=== PATIENT | female | born 1945 | race Caucasian/White ===

== ENCOUNTER 2019-03-01 00:12 | Outpatient (CLI) | payer MEDICARE, SELFPAY ==
--- NOTE | 2019-03-01 14:32 | DI.MAMMO_ITS ---
SYMPTOMS/DIAGNOSIS: SCREENING, Z12.31 MAMMOGRAMS: Mammograms were interpreted according to the usual protocol including computer analysis with CAD system, tomosynthesis and C view imaging. The breast tissue is heterogeneously radiodense, which lowers the sensitivity of the study. There is no dominant mass. There are no suspicious calcifications and there has been no significant interval change when compared with prior images. SUMMARY: No evidence of malignancy, category 1. Yearly screening mammography is recommended. Breast density category C. MQSA ASSESSMENT OF FINDINGS: Negative. Category 1. Patient will receive a letter notifying them of these results. Bi-RADS category C. The breasts are heterogeneously dense, which may obscure small masses.
--- NOTE | 2019-03-01 14:55 | DI.RAD_ITS ---
SYMPTOMS/DIAGNOSIS: MENOPAUSAL, SCREENING FOR OSTEOPOROSIS IN A POSTMENOPAUSAL WOMAN, Z78.0 DEXA SCAN: DEXA scan was performed according to the usual protocol. Findings for left hip scanning are a T score of -2.5 with left femoral neck T score of -2.5. Lumbar spine scanning shows a T score of -1.9. Forearm scanning shows a T score of -2.2. CONCLUSION: Findings consistent with osteoporosis according to the WHO criteria. Please note that the lateral vertebral scanogram shows no evidence of a vertebral compression fracture.
== END 2019-03-01 00:32 ==
PROVIDERS: PCP Family Medicine; Visit Provider Family Medicine
DX: M81.0 Age-related osteoporosis without current pathological fracture (principal); Z78.0 Asymptomatic menopausal state; Z12.31 Encounter for screening mammogram for malignant neoplasm of breast
CPT/HCPCS: 77063; 77067; 77080

== ENCOUNTER 2019-03-08 13:19 | Outpatient (REF) | payer MEDICARE, SELFPAY ==
[2019-03-08 14:37] LABS: ALT 24 U/L (12-78); AST 20 U/L (15-37); Albumin 3.6 g/dL (3.4-5.0); Alkaline Phosphatase 89 U/L (46-116); Anion Gap 8.8 mmol/L (3-11); BUN 15 mg/dL (7-18); Bilirubin, Total 0.5 mg/dL (0.2-1.0); CO2 27.2 mmol/L (21.0-32.0); CREATININE 1.23 mg/dL (0.55-1.02); Calcium 8.9 mg/dL (8.5-10.1); Chloride 100 mmol/L (98-107); Cholesterol 236 mg/dL (50-200); Glucose 94 mg/dL (70-100); HDL Cholesterol 68 mg/dL (40-60); LDL CHOLESTEROL 140 mg/dL (<100); Potassium 3.6 mmol/L (3.5-5.1); Sodium 136 mmol/L (136-145); T4 8.1 ug/dL (4.5-12.5); TSH 1.19 uIU/mL (0.358-3.74); Total Protein 7.6 g/dL (6.4-8.2); Triglyceride 68 mg/dL (30-150)
[2019-03-08 14:54] LABS: HCT 41.4 % (36.0-46.0); HGB 14.3 g/dL (12.0-15.5); Mean Corp. HGB Concentration 34.5 g/dL (32.0-36.0); Mean Corpuscular Hemoglobin 31.3 pg (27.0-33.0); Mean Corpuscular Volume 90.6 fL (80-95); Mean Platelet Volume 10.3 fL (8.0-11.0); Platelet Count 252 x1000/uL (130-400); RBC 4.57 m/cumm (4.00-5.20); RBC Distribution Width 12.5 % (11.7-14.6); White Blood Cell Count 6.87 k/cumm (4.4-10.8)
== END 2019-03-08 13:39 ==
LOC: NCHCN 13:19
PROVIDERS: PCP Family Medicine; Visit Provider Family Medicine
DX: I10 Essential (primary) hypertension (principal)
CPT/HCPCS: 80053; 80061; 83721; 85027; 84436; 84443

== ENCOUNTER 2020-03-21 17:22 | Outpatient (REF) | payer MEDICARE, SELFPAY | END 2020-03-21 17:42 | LOC: NCHCN 17:22 | PROVIDERS: PCP Family Medicine; Visit Provider Family Medicine | DX: R10.32 Left lower quadrant pain (principal) | CPT/HCPCS: 87086 ==

== ENCOUNTER 2020-07-24 09:28 | Outpatient (REF) | payer MEDICARE, SELFPAY ==
[2020-07-24 20:48] LABS: HCT 38.3 % (36.0-46.0); HGB 12.6 g/dL (11.2-15.7); MCH 30.3 pg (27.0-33.0); MCHC 32.9 % (32.0-36.0); MCV 92.1 fL (80-95); Platelet Count 293 10^3/uL (130-400); RBC 4.16 10^6/uL (3.93-5.22); RDW 11.9 % (11.7-14.6); RDW-SD 39.9 fL; WBC 7.41 10^3/uL (4.4-10.8)
[2020-07-24 21:07] LABS: ALT 17 U/L (14-59); AST 17 U/L (15-37); Albumin 3.5 g/dL (3.4-5.0); Alkaline Phosphatase 88 U/L (46-116); Anion Gap 5.7 mmol/L (3-11); BUN 25 mg/dL (7-18); Bilirubin, Total 0.3 mg/dL (0.2-1.0); CO2 27.3 mmol/L (21.0-32.0); CREATININE 1.46 mg/dL (0.55-1.02); Calcium 9.4 mg/dL (8.5-10.1); Calculated LDL 148 mg/dL (<100); Chloride 105 mmol/L (98-107); Cholesterol 238 mg/dL (<200); Estimated GFR 35.02 (mL/min/1.73m2); Glucose 118 mg/dL (74-106); HDL Cholesterol 79 mg/dL (40-60); Potassium 4.1 mmol/L (3.5-5.1); Sodium 138 mmol/L (136-145); Total Protein 7.5 g/dL (6.4-8.2); Triglyceride 57 mg/dL (<150)
== END 2020-07-24 09:48 ==
LOC: NCHCN 09:28
PROVIDERS: PCP Family Medicine; Visit Provider Family Medicine
DX: I10 Essential (primary) hypertension (principal)
CPT/HCPCS: 80053; 80061; 85027

== ENCOUNTER 2021-08-10 15:32 | Outpatient (REF) | payer MEDICARE, SELFPAY ==
[2021-08-10 15:02] LABS: Abs Immature Grans 0.02 10^3/uL (0.0-0.06); Absolute Basophil Count 0.09 10^3/uL (0.0-0.2); Absolute Eosinophil Count 0.18 10^3/uL (0.0-0.7); Absolute Lymphocyte Count 2.11 10^3/uL (1.2-3.4); Absolute Monocyte Count 0.75 10^3/uL (0.1-0.8); Absolute Neutrophil Count 4.43 10^3/uL (1.2-6.7); Basophils % 1.2; Eosinophils % 2.4; HCT 37.5 % (36.0-46.0); HGB 12.8 g/dL (11.2-15.7); Immature Grans % 0.3; Lymphocytes % 27.8; MCH 30.5 pg (27.0-33.0); MCHC 34.1 % (32.0-36.0); MCV 89.3 fL (80-95); MPV 9.6 fL (8.0-11.0); Monocytes % 9.9; Neutrophils % 58.4; Nucleated RBC 0 %; Platelet Count 402 10^3/uL (130-400); RDW-SD 39.2 fL; WBC 7.58 10^3/uL (4.4-10.8)
[2021-08-10 15:50] LABS: ALT 18 U/L (14-59); AST 18 U/L (15-37); Albumin 3.6 g/dL (3.4-5.0); Alkaline Phosphatase 108 U/L (46-116); Anion Gap 5.6 mmol/L (3-11); BUN 17 mg/dL (7-18); Bilirubin, Total 0.5 mg/dL (0.2-1.0); CO2 26.4 mmol/L (21.0-32.0); CREATININE 1.4 mg/dL (0.55-1.02); Calcium 9.4 mg/dL (8.5-10.1); Chloride 98 mmol/L (98-107); Estimated GFR 36.66 (mL/min/1.73m2); Folate 5.7 ng/mL (8.6-20.0); Glucose 90 mg/dL (74-106); Potassium 4.5 mmol/L (3.5-5.1); Sodium 130 mmol/L (136-145); TSH (W/Ref FT4) 0.86 uIU/mL (0.36-3.74); Total Protein 7.9 g/dL (6.4-8.2); Vitamin B12 402 pg/mL (193-986)
== END 2021-08-10 15:33 | disposition home or self-care (01) ==
LOC: NCHCN 15:32
PROVIDERS: PCP Family Medicine; Visit Provider Family Medicine
DX: I10 Essential (primary) hypertension (principal); M81.0 Age-related osteoporosis without current pathological fracture; Z00.00 Encounter for general adult medical examination without abnormal findings; R41.3 Other amnesia
CPT/HCPCS: 80053; 82607; 82746; 84443; 85025

== ENCOUNTER 2022-03-24 09:27 | Emergency (ER) | payer MEDICARE, SELFPAY ==
[2022-03-24 09:31] VITALS: BP 116/68; PULSE 79; RESP 16; TEMP 36.4; O2SAT 99
--- NOTE | 2022-03-24 09:53 | ED.GENADUL_ITS ---
Discharge Plan Disposition Patient Disposition: HOME Condition: Stable Discharge Details Clinical Impression: Complaints of leg weakness Primary Care Provider: Sinan Varma ED Provider: Dave Jaimes Home Meds and New Rx's Prescriptions: Continued amlodipine 10 mg tablet 10 mg PO DAILY 0RF Label Comments: TAKE ONE TABLET BY MOUTH EVERY DAY Multi For Her 18 mg iron-600 mcg-40 mcg Capsule 1 tab-cap PO DAILY 0RF No Action cyclobenzaprine 10 mg tablet 10 mg PO TID [id number] Label Comments: TAKE ONE TABLET BY MOUTH THREE TIMES A DAY Discharge Instructions Additional Instructions: Your exam today was normal, there were no concerning abnormalities Follow up with your primary care provider within 1-2 weeks If you feel more ill, have severe pain or weakness on one side of the body return to the emergency department Medical Decision Making 76 yo female with hx of htn comes in with complaints of intermittent sensation that her legs give out or get shaky for a few years. She has seen PT in the past but then stopped seeing them. She states today she was walking and had 5 minutes where her legs felt weak and shaky. Did not fall or hti her head, no loc. Denies any symptoms now and has no vision changes or speech changes. She arrives with stable gait, 5/5 strength in all muscles in her leg, normal sensation and pulses. No calf tenderness or leg swelling. She has no saddle anesthesia, no back tenderness. Denies any fevers, chills, chest pain, dyspnea, abdomen pain. No headaches. She is caox4 with clear speech, CN II-XII. Her symptoms seem more chronic and I suspect are from aging and deconditioninng, less likely myopathy or neuropathy. She has no findings one exam or history to suggest spinal cord impringement, cva/tia, or entities such as guillain-nazario? syndrome. Discussed with pt and she is comfortable with no testing in the ED at this time. I did recommend she resume PT and also see pcp and use either a cane or walker, return precautions given Differential Diagnosis Differential Diagnosis: myopathy, muscle weakness, neuropathy HPI General Mode of arrival: ambulatory . Date/Time Provider Initiated Documentation: 03/24/22 09:28 . Limitations to Documentation: no limitations . History of Present Illness 76 year old F presents to the emergency department with the chief complaint of legs shaky at home, Patient started experiencing this hour(s) (1) and it has been now resolved. improves with No relieving factors improve symptom(s), No exacerbating factors reported . Patient notes no other symptoms.; denies confusion, chest pain, diaphoresis and fever/chills. Patient did receive the following treatments prior to arrival, none Related Data Home Medications Medication Instructions Recorded Confirmed amlodipine 10 mg tablet 10 mg PO DAILY 03/24/22 03/24/22 cyclobenzaprine 10 mg tablet 10 mg PO TID PRN 03/24/22 03/24/22 [id number] fumarate 18 1 tab-cap PO DAILY 03/24/22 03/24/22 mg-FA 600 mcg-vit K 40 mcg capsule (Multi For Her) Allergies Allergy/AdvReac Type Severity Reaction Status Date / Time cefuroxime [From Ceftin] Allergy Unverified 03/24/22 09:38 Penicillins Allergy Unverified 03/24/22 09:38 General Stated Complaint: Orthopedic MARCUS: 4 Review of Systems All systems reviewed & are unremarkable except as noted in HPI and below Constitutional Constitutional: Denies chills and Denies fever(s) Cardiovascular Cardiovascular: Denies chest pain and Denies dyspnea Respiratory Respiratory: Denies cough and Denies dyspnea Gastrointestinal Gastrointestinal: Denies abdominal pain, Denies nausea and Denies vomiting Genitourinary Genitourinary: Denies dysuria Musculoskeletal Musculoskeletal: Denies joint swelling Integumentary/Breasts Skin/Breast: Denies rash PFSH All Active Problems (Updated 03/24/22 @ 09:54 by Dave Jaimes MD) Complaints of leg weakness (Acute) Social History Smoking/Tobacco Use Status: Never Smoking risk assessment performed?: Yes Alcohol Intake: current Alcohol Intake frequency: 3 or more drinks per day Alcohol type: beer Drug use: Never Substance use type: does not use Do you feel safe at home: Yes Do you feel safe in your relationship?: Yes Exam Const General: no acute distress Orientation: alert HENMT Head: normal to inspection Ears: external ears normal General nose exam: external nose normal Mouth: moist mucous membranes Eyes General: appearance normal, both eyes and all related structures Neck Neck: normal visual inspection Resp Effort & Inspection: normal respiratory effort and able to speak in complete sentences Cardio Rate: regular rate Back/Spine/Pelvis Back: no CVA tenderness Skin General skin exam: no rashes or lesions noted Neuro General: patient alert and patient oriented x3 Extrem General: normal to inspection Psych Mental Status: mental status grossly normal Course Vital Signs Vital signs: Vital Signs Temperature 36.4 C L 03/24/22 09:31 Pulse 79 03/24/22 09:31 Respiratory Rate 16 03/24/22 09:31 Blood Pressure 116/68 03/24/22 09:31 Pulse Oximetry 99 03/24/22 09:31 Temperature 36.4 C L 03/24/22 09:31 Temperature Source Temporal Artery Scan 03/24/22 09:31 Pulse 79 03/24/22 09:31 Respiratory Rate 16 03/24/22 09:31 Respiratory Effort Non-Labored 03/24/22 09:36 Blood Pressure 116/68 03/24/22 09:31 Blood Pressure Position Sitting 03/24/22 09:31 Pulse Oximetry 99 03/24/22 09:31 Oxygen Delivery Method Room Air 03/24/22 09:31 Oxygen Flow Rate 0 03/24/22 09:31 Pain Level 0 03/24/22 09:31
== END 2022-03-24 10:02 | disposition home or self-care (01) ==
PROVIDERS: Emergency Provider Emergency Medicine; PCP Physician Assistant
DX: R53.1 Weakness (principal)
CPT/HCPCS: 99281; 99282

== ENCOUNTER 2022-03-30 18:31 | Outpatient (REF) | payer MEDICARE, SELFPAY ==
[2022-03-30 19:45] LABS: HCT 33.4 % (36.0-46.0); HGB 11.2 g/dL (11.2-15.7); MCHC 33.5 % (32.0-36.0); MCV 87 fL (80-95); Platelet Count 523 10^3/uL (130-400); RBC 3.86 10^6/uL (3.93-5.22); RDW 12.1 % (11.7-14.6); RDW-SD 38.7 fL; WBC 12.28 10^3/uL (4.4-10.8)
[2022-03-30 19:46] LABS: ESR 21 mm/hr (0-30)
[2022-03-30 19:50] LABS: Anion Gap 11.5 mmol/L (3-11); BUN 28 mg/dL (7-18); C-Reactive Protein 5.08 mg/dL (0.0-0.3); CO2 22.5 mmol/L (21.0-32.0); CREATININE 1.7 mg/dL (0.55-1.02); Calcium 9.3 mg/dL (8.5-10.1); Chloride 96 mmol/L (98-107); Estimated GFR 29.22 (mL/min/1.73m2); Glucose 136 mg/dL (74-106); Potassium 3.2 mmol/L (3.5-5.1); Sodium 130 mmol/L (136-145)
== END 2022-03-30 18:32 | disposition home or self-care (01) ==
LOC: NCHCN 18:31
PROVIDERS: PCP Physician Assistant; Visit Provider Physician Assistant
DX: M54.9 Dorsalgia, unspecified (principal); I10 Essential (primary) hypertension
CPT/HCPCS: 80048; 85027; 85652; 86140

== ENCOUNTER → 2022-03-30 18:44 | Outpatient (CLI) | payer MEDICARE, SELFPAY ==
--- NOTE | 2022-03-30 15:56 | DI.RAD_ITS ---
Exam(s) XR THORACIC SPINE COMPLETE EXAM: XR THORACIC SPINE COMPLETE CLINICAL HISTORY: THORACIC BACK PAIN M54.9. TECHNIQUE: 2D digital imaging was performed. COMPARISON: No exams were available for comparison FINDINGS: 3 views There is a mild thoracic scoliosis convex right. There is no evidence of fracture or listhesis. No prominent disc space narrowing. No abnormal widen ing of the paraspinal lines. No osseous lesions. IMPRESSION: DATA REPOSITORY: RADIATION DOSE DELIVERED:
== END ==
PROVIDERS: PCP Physician Assistant; Visit Provider Physician Assistant
DX: M54.6 Pain in thoracic spine (principal); M41.84 Other forms of scoliosis, thoracic region
CPT/HCPCS: 72072

== ENCOUNTER 2022-03-31 10:40 | Outpatient (REF) | payer MEDICARE, SELFPAY ==
[2022-03-31 15:24] LABS: Bilirubin Negative (Negative); Blood Trace-intact (Negative); Clarity Sl Cloudy (Clear); Glucose Negative (Negative); Ketones Negative (Negative); Leukocyte Esterase Large (Negative); Nitrite Negative (Negative); Specific Gravity 1.015 (1.005-1.025); Urobilinogen 0.2 EU/dL (Up TO 0.2)
[2022-03-31 15:38] LABS: Bacteria Many HPF (Negative); C & S Indicated? No/Sq. Contamination; Casts Negative LPF (Negative); Crystals Negative HPF (Negative); Epithelial Cells Moderate HPF (Negative); Mucus Negative (Negative); RBC >50 HPF (0-2); WBC >50 HPF (0-5)
== END 2022-03-31 10:41 | disposition home or self-care (01) ==
LOC: NCHCN 10:40
PROVIDERS: PCP Physician Assistant; Visit Provider Physician Assistant
DX: R10.9 Unspecified abdominal pain (principal)
CPT/HCPCS: 81003; 81015

== ENCOUNTER 2022-04-01 13:16 | Emergency (ER) | payer MEDICARE, SELFPAY ==
--- NOTE | 2022-04-01 13:04 | ED.GENADUL_ITS ---
Discharge Plan Disposition Patient Disposition: HOME Condition: Stable Discharge Details Clinical Impression: Lumbar compression fracture Primary Care Provider: Sinan Varma ED Provider: Shaneka Crooks Home Meds and New Rx's Prescriptions: Continued sulfamethoxazole-trimethoprim [Bactrim DS] 800-160 mg tablet 1 tab PO BID Label Comments: Take 1 tablet by mouth twice a day tramadol 50 mg tablet 50 tab PO Label Comments: TAKE 1 TABLET BY MOUTH THREE TIMES A DAY NEEDED FOR PAIN cyclobenzaprine 10 mg tablet 10 mg PO TID PRN Label Comments: TAKE ONE TABLET BY MOUTH THREE TIMES A DAY amlodipine 10 mg tablet 10 mg PO DAILY Label Comments: TAKE ONE TABLET BY MOUTH EVERY DAY Multi For Her 18 mg iron-600 mcg-40 mcg Capsule 1 tab-cap PO DAILY Discharge Instructions Instructions: Vertebral Compression Fracture (ED) Additional Instructions: Your your imaging today showed evidence of lumbar spine #1 vertebral body compression fracture. This is best treated with rest and pain control. Alternate tylenol and motrin as needed and directed for pain. Take your tramadol that you have at home as needed and directed for pain not relieved with Tylenol or Motrin. Call your primary care doctor's office tomorrow to schedule a follow-up appointment for reevaluation within the next week and for referral to [facility] spine if needed for further evaluation or management. Return immediately to the emergency department if you develop any worsening or new concerning symptoms. Discharge Data Discharge Date/Time-TO BE ENTERED AT DEPARTURE: 04/01/22 15:52 Discharge Physician: Shaneka Crooks Medical Decision Making 76-year-old female with a history of chronic low back pain and bilateral leg weakness presents for lower back pain since this morning after tripping over her dog bed landing on her lower back. No cauda equina symptoms. Vitals within normal limits. Patient appears slightly uncomfortable but nontoxic. Her abdomen is soft and nontender. She has midline and right paraspinal lumbar spine tenderness. She has pain in her right hip with range of motion. No orthopedic deformities noted. Neurovascular intact. She did endorse removing a tick from her umbilicus this morning. This area had erythematous papules but no evidence of bull's-eye rash. She declined to doxycycline and Tick and Lyme panel. Differential diagnosis includes lumbar spine compression fracture, contusion, hip fracture. We obtain lumbar spine and right hip and pelvis xrays and give a dose of tramadol and valium PO and toradol IM and reassess. Imaging reviewed and note a mild L1 vertebral body compression fracture. Patient reassessed and her pain is improved. She was able to get up and ambulate. Case reviewed with Dr. Poole who recommends rest, pain control and walker if needed. She was given a walker for home to use for assistance with ambulation when needed. She has tramadol at home to use as needed for pain. Advised follow-up with primary care doctor for reevaluation and for referral to [facility] spine if needed Medical Records Medical records reviewed: Yes I reviewed the patient's medical records. Imaging Data Radiologic Study: Radiologist's impression: XR LUMBAR SPINE COMPLETE CLINICAL HISTORY: ? fall onto back, r/o acute fracture.? TECHNIQUE:? 2D digital imaging was performed of the lumbar spine.? Five images were obtained.? AP, lateral, right oblique, left oblique and L5-S1 spot views were obtained. COMPARISON:? DX XR DEXA BONE DENSITY W/WO HENRIQUE from 03/01/2019 CR XR THORACIC SPINE COMPLETE from 03/30/2022 FINDINGS: BONES: There is a mild compression fracture of the superior aspect of L1.? Mild loss of the height of the vertebral bodies seen anteriorly.? Endplate osteophytes are seen throughout the lumbar spine.? Degenerative changes of the facets at L4-5 and L5-S1 is present.? DISKS: There is disc space narrowing at L4-L5 and L5-S1. ALIGNMENT: Lumbar spinal alignment is within normal limits. No spondylolysis or spondylolisthesis. SOFT TISSUE: Normal. IMPRESSION: Findings of an acute mild fracture of the L1 vertebral body.? XR HIP RT COMPLETE ? AP PELVIS CLINICAL HISTORY: ? s/p fall, r/o fracture.? TECHNIQUE:? 2D digital imaging was performed of the right hip. Two images were obtained.? AP pelvis and lateral right hip? views were obtained. COMPARISON:? No exams were available for comparison FINDINGS: BONES: No acute fracture is present. No bony destructive lesion is seen. There is deformity of the inferior left pubic ramus which may represent an old healed fracture. JOINTS: No dislocation present. Mild degenerative changes of the right hip. SOFT TISSUE: Normal. IMPRESSION: No definite acute fracture or dislocation.? HPI General Mode of arrival: EMS . Date/Time Provider Initiated Documentation: 04/01/22 13:18 . Limitations to Documentation: no limitations . Information obtained by: patient . HPI Narrative: Patient is a 76-year-old female with a history of hypertension who presents from home for back pain status post fall. Patient states she was walking when she tripped over a dog bed and fell onto the hard floor onto her lower back. She states she has been able to ambulate since her fall. She states the pain is mostly in her mid and right lower back. She denies any leg pain, bowel or bladder incontinence, saddle anesthesia. Records note that patient was seen here 1 week ago for bilateral leg weakness with a reassuring exam and was discharged home without lab work or imaging. She states she has had ongoing bilateral leg weakness for several months but states her legs did not feel significantly weak today while she was walking and that she and this was the cause of her fall. Patient also states that she has had ongoing back pain recently for which she saw her PCP who prescribed her tramadol which she has not taken today and referred her for outpatient lab work and urinalysis which appeared contaminated. Patient admits to nausea in route and was given a dose of Zofran per EMS and then vomited. She denies any nausea at present. She does also state that she noticed a tick in her bellybutton this morning which she removed intact. She states she does not think it was engorged and states it was present under 36 hours. She is declining Tick and Lyme panel and declines any treatment for Lyme disease at this time. Related Data Home Medications Medication Instructions Recorded Confirmed amlodipine 10 mg tablet 10 mg PO DAILY 03/24/22 04/01/22 cyclobenzaprine 10 mg tablet 10 mg PO TID PRN 03/24/22 04/01/22 mssgmfarx-nuq-zvww fumarate 18 1 tab-cap PO DAILY 03/24/22 04/01/22 mg-FA 600 mcg-vit K 40 mcg capsule (Multi For Her) sulfamethoxazole 800 1 tab PO BID 04/01/22 04/01/22 mg-trimethoprim 160 mg tablet (Bactrim DS) tramadol 50 mg tablet 50 tab PO 04/01/22 Allergies Allergy/AdvReac Type Severity Reaction Status Date / Time cefuroxime [From Ceftin] Allergy Unverified 04/01/22 13:24 Penicillins Allergy Unverified 04/01/22 13:24 General Stated Complaint: Nk/Back Pain MARCUS: 4 Review of Systems All systems reviewed & are unremarkable except as noted in HPI and below Constitutional Constitutional: Denies chills, Denies excessive sweating, Denies fatigue, Denies fever(s), Denies weakness and Denies weight loss Eyes Eyes: Reports system reviewed and no additional complaints, except as documented and Denies blurry vision ENT Ears, Nose, Mouth, and Throat: Denies vertigo, Denies dizziness, Denies otalgia, Denies nasal congestion, Denies sore throat and Denies throat swelling Cardiovascular Cardiovascular: Denies chest pain, Denies syncope, Denies rapid heart rate and Denies dyspnea Respiratory Respiratory: Denies chest congestion, Denies cough, Denies pain on inspiration and Denies dyspnea Gastrointestinal Gastrointestinal: Denies abdominal pain, Denies diarrhea and Denies vomiting Genitourinary Genitourinary: Denies hematuria, Denies dysuria and Denies flank pain Musculoskeletal Musculoskeletal: Reports back pain and Denies joint swelling Integumentary/Breasts Skin/Breast: Denies lesions and Denies rash Neurologic Neurologic: Denies behavioral changes, Denies confusion, Denies vertigo, Denies dizziness, Denies syncope, Denies localized weakness and Denies weakness Psychiatric Psychiatric: Denies behavioral changes, Denies confusion and Denies depression Endocrine Endocrine: Denies excessive sweating and Denies fatigue Hematologic/Lymphatic Hematologic/Lymphatic: Denies easy bruising and Denies lymphadenopathy Allergic/Immunologic Allergic/Immunologic: Denies throat swelling PFSH All Active Problems (Updated 04/01/22 @ 15:18 by Shaneka Crooks DO) Lumbar compression fracture (Acute) Complaints of leg weakness (Acute) Medical History (Updated 04/01/22 @ 15:18 by Shaneka Crooks DO) HTN (hypertension) Surgical History (Updated 04/01/22 @ 13:55 by Shaneka Crooks DO) H/O section Social History Smoking/Tobacco Use Status: Never Smoking risk assessment performed?: Yes Alcohol Intake: current Alcohol Intake frequency: 3 or more drinks per day Alcohol type: beer Drug use: Never Substance use type: does not use Do you feel safe at home: Yes Do you feel safe in your relationship?: Yes Exam Const General: cooperative and healthy appearing Orientation: alert, awake and oriented x3 HENMT Head: normal to inspection Ears: hearing grossly normal bilaterally, external ears normal and TM's normal bilaterally General nose exam: external nose normal Face and sinus: normal facial exam Mouth: oral mucosae normal Teeth and gingiva: dentition normal Throat: posterior oropharynx normal Eyes General: appearance normal, both eyes and all related structures Eyelids: eyelids normal Pupils: PERRL EOM: EOM intact bilaterally Neck Neck: normal visual inspection Lymphatic: no lymphadenopathy noted Chest Chest: normal inspection of the chest Resp Effort & Inspection: normal respiratory effort and able to speak in complete sentences Auscultation: clear to auscultation bilaterally Cardio Rate: regular rate Rhythm: regular rhythm GI Inspection: normal to inspection Palpation: soft, not firm, no guarding, no hepatosplenomegaly, no masses and nontender Auscultation: normal bowel sounds Back/Spine/Pelvis Back: no CVA tenderness Thoracic/Lumbar Spine: thoracic and lumbar spine normal to inspection, paraspinal tenderness (Right lumbar), No thoracic spinal tenderness and lumbar spinal tenderness Pelvis: no pain with anterior-posterior compression Skin General skin exam: no rashes or lesions noted Neuro General: patient alert and patient awake Cognition: normal cognition Speech: speech normal Gait: normal gait Motor: muscle tone normal throughout Sensory Exam: no sensory deficits noted DTR's: Rt Patellar: 0, Lt Patellar: 0, Rt Ankle: 0 and Lt Ankle: 0 Plantar Reflexes: Equivocal: bilateral (negative babinski b/l ) Extrem General: normal to inspection, full ROM and capillary refill normal Other: Pain in right hip with range of motion but no external rotation or shortening of her extremities. No pain with range of motion to the remainder of her upper and lower extremities. No evidence for lower extremity deformity, edema, erythema or ecchymosis. Bilateral distal pulses intact. Psych Appearance: grossly normal Mental Status: mental status grossly normal Speech and Movement: speech and movement normal Affect: normal affect Thought Process: normal
[2022-04-01 13:17] VITALS: BP 123/71; PULSE 77; RESP 16; TEMP 36.4; O2SAT 98
--- NOTE | 2022-04-01 13:45 | DI.RAD_ITS ---
Exam(s) XR LUMBAR SPINE COMPLETE EXAM: XR LUMBAR SPINE COMPLETE CLINICAL HISTORY: fall onto back, r/o acute fracture. TECHNIQUE: 2D digital imaging was performed of the lumbar spine. Five images were obtained. AP, la teral, right oblique, left oblique and L5-S1 spot views were obtained. COMPARISON: DX XR DEXA BONE DENSITY W/WO HENRIQUE from 03/01/2019 CR XR THORACIC SPINE COMPLETE from 03/30/2022 FINDINGS: BONES: There is a mild compression fracture of the superior aspect of L1. Mild loss of the height of the vertebral bodies seen anteriorly. Endplate osteophytes are seen throughout the lumbar spine. D egenerative changes of the facets at L4-5 and L5-S1 is present. DISKS: There is disc space narrowing at L4-L5 and L5-S1. ALIGNMENT: Lumbar spinal alignment is within normal limits. No spondylolysis or spondylolisthesis. SOFT TISSUE: Normal. IMPRESSION: Findings of an acute mild fracture of the L1 vertebral body. DATA REPOSITORY: RADIATION DOSE DELIVERED:
--- NOTE | 2022-04-01 13:45 | DI.RAD_ITS ---
Exam(s) XR HIP RT COMPLETE AP PELVIS EXAM: XR HIP RT COMPLETE AP PELVIS CLINICAL HISTORY: s/p fall, r/o fracture. TECHNIQUE: 2D digital imaging was performed of the right hip. Two images were obtained. AP pelvis a nd lateral right hip views were obtained. COMPARISON: No exams were available for comparison FINDINGS: BONES: No acute fracture is present. No bony destructive lesion is seen. There is deformity of the in ferior left pubic ramus which may represent an old healed fracture. JOINTS: No dislocation present. Mild degenerative changes of the right hip. SOFT TISSUE: Normal. IMPRESSION: No definite acute fracture or dislocation. DATA REPOSITORY: RADIATION DOSE DELIVERED:
[2022-04-01] MEDS: traMADol 50 MG TAB PO (14:02)
[2022-04-01] MEDS: diazePAM 5 MG TAB PO (14:03)
--- NOTE | 2022-04-01 15:08 | NUR.NOTE ---
resting quietly. NAD noted
[2022-04-01 15:45] VITALS: BP 90/46; PULSE 62; RESP 14; O2SAT 98
== END 2022-04-01 15:52 | disposition home or self-care (01) ==
PROVIDERS: Emergency Provider Physician Assistant; PCP Physician Assistant
DX: S32.010A Wedge compression fracture of first lumbar vertebra, initial encounter for closed fracture (principal); W01.0XXA Fall on same level from slipping, tripping and stumbling without subsequent striking against object, initial encounter; M54.50 Low back pain, unspecified
CPT/HCPCS: 99284; 72110; 73502; 99283

== ENCOUNTER 2022-04-06 18:41 | Outpatient (REF) | payer MEDICARE, SELFPAY ==
[2022-04-06 17:21] LABS: Bilirubin Negative (Negative); Blood Trace-intact (Negative); Clarity Sl Cloudy (Clear); Glucose Negative (Negative); Ketones Negative (Negative); Leukocyte Esterase Large (Negative); Nitrite Positive (Negative); Urobilinogen 0.2 EU/dL (Up TO 0.2); pH 6.5 (5-8)
[2022-04-06 17:32] LABS: RBC 0-2 HPF (0-2); WBC >50 HPF (0-5)
[2022-04-06 17:33] LABS: Bacteria Moderate HPF (Negative); Casts Negative LPF (Negative); Crystals Negative HPF (Negative); Epithelial Cells Many HPF (Negative); Mucus Negative (Negative)
[2022-04-06 17:34] LABS: C & S Indicated? No/Sq. Contamination; Other Cells Few Transitional (Negative)
[2022-04-06 19:26] LABS: HCT 33.6 % (36.0-46.0); HGB 11.3 g/dL (11.2-15.7); MCH 29.4 pg (27.0-33.0); MCHC 33.6 % (32.0-36.0); MCV 87 fL (80-95); MPV 9.1 fL (8.0-11.0); Platelet Count 459 10^3/uL (130-400); RBC 3.85 10^6/uL (3.93-5.22); RDW 12.9 % (11.7-14.6); RDW-SD 40.8 fL; WBC 20.63 10^3/uL (4.4-10.8)
[2022-04-06 19:52] LABS: ALT 20 U/L (14-59); AST 18 U/L (15-37); Alkaline Phosphatase 110 U/L (46-116); Anion Gap 13.3 mmol/L (3-11); BUN 29 mg/dL (7-18); Bilirubin, Total 0.3 mg/dL (0.2-1.0); CO2 22.7 mmol/L (21.0-32.0); CREATININE 2.2 mg/dL (0.55-1.02); Calcium 8.7 mg/dL (8.5-10.1); Chloride 99 mmol/L (98-107); Glucose 129 mg/dL (74-106); Potassium 3.9 mmol/L (3.5-5.1); Sodium 135 mmol/L (136-145); TSH 0.49 uIU/mL (0.36-3.74); Total Protein 7.3 g/dL (6.4-8.2); Vitamin B12 470 pg/mL (193-986)
== END 2022-04-06 18:42 | disposition home or self-care (01) ==
LOC: NCHCN 18:41
PROVIDERS: PCP Physician Assistant; Visit Provider Physician Assistant
DX: R53.83 Other fatigue (principal); R82.81 Pyuria; R26.81 Unsteadiness on feet
CPT/HCPCS: 80053; 85027; 81003; 81015; 82607; 84439; 84443

== ENCOUNTER 2022-04-06 18:57 | Outpatient (REF) | payer MEDICARE, SELFPAY | END 2022-04-06 18:58 | disposition home or self-care (01) | LOC: NCHCN 18:57 | PROVIDERS: PCP Physician Assistant; Visit Provider Physician Assistant ==

== ENCOUNTER 2022-04-21 16:41 | Outpatient (REF) | payer MEDICARE, SELFPAY ==
[2022-04-21 21:20] LABS: HCT 31.3 % (36.0-46.0); MCH 29.7 pg (27.0-33.0); MCHC 35.1 % (32.0-36.0); MCV 85 fL (80-95); MPV 9.2 fL (8.0-11.0); Platelet Count 395 10^3/uL (130-400); RDW 13.5 % (11.7-14.6); RDW-SD 41.6 fL; WBC 11.69 10^3/uL (4.4-10.8)
[2022-04-21 21:27] LABS: Anion Gap 14.1 mmol/L (3-11); BUN 36 mg/dL (7-18); CO2 19.9 mmol/L (21.0-32.0); CREATININE 1.8 mg/dL (0.55-1.02); Calcium 8.5 mg/dL (8.5-10.1); Chloride 98 mmol/L (98-107); Estimated GFR 27.36 (mL/min/1.73m2); Glucose 113 mg/dL (74-106); Sodium 132 mmol/L (136-145)
[2022-04-21 21:36] LABS: Potassium 2.8 mmol/L (3.5-5.1)
== END 2022-04-21 16:42 | disposition home or self-care (01) ==
LOC: NCHCN 16:41
PROVIDERS: PCP Physician Assistant; Visit Provider Physician Assistant
DX: R53.83 Other fatigue (principal); R10.32 Left lower quadrant pain
CPT/HCPCS: 80048; 85027; 87077; 87086; 87186

== ENCOUNTER 2022-04-24 09:52 | Observation (INO) | payer MEDICARE, SELFPAY ==
[2022-04-24] VITALS (9 sets, daily range): BP systolic 98–133; BP diastolic 62–76; PULSE 67–97; RESP 16–20; TEMP 36.3–37.8; O2SAT 97–100
--- NOTE | 2022-04-24 09:45 | RT.EKG_ITS ---
APPROVED REPORT Exam: Resting ECG Reason for Exam: weakness Patient Location: E HR:67 bpm ECG Measurements Heart Rate 67 AXIS WV 146 P 56 QRSd 93 QRS 13 QT 416 T 56 QTc 439 Conclusion Sinus rhythm...normal P axis, V-rate 60- 99
--- NOTE | 2022-04-24 10:45 | DI.CT_ITS ---
Exam(s) CT HEAD WO EXAM: CT HEAD WO CLINICAL HISTORY: fall, HI, confusion. TECHNIQUE: Imaging Protocol: Axial computed tomography images with coronal and sagittal reformatted images were created and reviewed COMPARISON: No exams were available for comparison FINDINGS: Ventricles and Extra axial spaces: Normal in size and morphology for the patient's age. Hemorrhage: None. Cerebral parenchyma: Atrophy. White matter changes consistent with small vessel disease. Midline shift: None. Brainstem/Cerebellum: Normal. Calvarium: Normal. Visualized Paranasal sinuses/Mastoids: Clear. IMPRESSION: No acute abnormality. RADIATION DOSE DELIVERED: 602.19mGy.cm Total DLP 602.19mGy.cm Total DLP DATA REPOSITORY: All CT scans at this facility are submitted to the National Radiology Data Registry (NRDR) Dose Index Registry (DIR) with the [employer] ([employer]). RADIATION OPTIMIZATION: All CT scans at this facility use at least one of these dose optimization te chniques: automated exposure control; mA and/or kV adjustment per patient size (includes targeted exa ms where dose is matched to clinical indication); or iterative reconstruction.
[2022-04-24 10:56] LABS: Abs Immature Grans 0.04 10^3/uL (0.0-0.06); Absolute Basophil Count 0.07 10^3/uL (0.0-0.2); Absolute Eosinophil Count 0.01 10^3/uL (0.0-0.7); Absolute Lymphocyte Count 1.42 10^3/uL (1.2-3.4); Absolute Monocyte Count 0.92 10^3/uL (0.1-0.8); Absolute Neutrophil Count 9.18 10^3/uL (1.2-6.7); Basophils % 0.6; Eosinophils % 0.1; HCT 33.1 % (36.0-46.0); HGB 11.5 g/dL (11.2-15.7); Immature Grans % 0.3; Lymphocytes % 12.2; MCH 29.2 pg (27.0-33.0); MCHC 34.7 % (32.0-36.0); MCV 84 fL (80-95); MPV 8.9 fL (8.0-11.0); Monocytes % 7.9; Neutrophils % 78.9; Platelet Count 351 10^3/uL (130-400); RBC 3.94 10^6/uL (3.93-5.22); RDW 13.4 % (11.7-14.6); RDW-SD 41.9 fL; WBC 11.64 10^3/uL (4.4-10.8)
[2022-04-24 10:58] LABS: Lactate 2.6 mmol/L (0.6-1.4)
--- NOTE | 2022-04-24 11:15 | DI.CT_ITS ---
Exam(s) CT LUMBAR SPINE RECONS CT ABDOMEN PELVIS WO EXAM: CT ABDOMEN PELVIS WO CLINICAL HISTORY: flank pain, renal failure, uti. TECHNIQUE: Imaging Protocol: Axial computed tomography images with coronal and sagittal reformatted images were created and reviewed. Axial, coronal and sagittal reconstructions of the lumbar spine were also performed. Oral: / no COMPARISON: CR XR LUMBAR SPINE COMPLETE from 04/01/[address] LUMBAR SPINE RECONS from 04/24/2022 FINDINGS: ABDOMEN: Lung Bases: Hiatal hernia with wall thickening of the distal esophagus. Minimal lingular atelectasis . Liver: Normal density. Small cyst near the dome. No suspicious mass. Gallbladder and biliary tract: No radiodense calculus or dilation. Pancreas: Normal density, no abnormal calcifications or inflammatory process. Spleen: Normal. Kidneys: Normal size, contour and axis. Numerous bilateral nonobstructing medullary calcifications. No obstructive uropathy. No masses seen. Adrenal glands: No masses seen. Lymph nodes: Within normal limits. Abdominal Aorta: Abdominal portion non-dilated. Atherosclerotic changes PELVIS: Bladder: Distended. No gross wall thickening. No calcification or visible mass. Bowel: Diverticulosis sigmoid. Appendix normal. Normal quantity of stool. No obstruction or bowel wall thickening. Peritoneal cavity: No ascites, collection or mesenteric inflammatory response. Reproductive organs: Within normal limits. Bones: Lumbar spine: Stable mild compression fracture of the superior endplate of L1. No acute fractu res. Mild levoscoliosis. Degenerative disc changes greatest at L4-5 and L5-S1. Facet degenerative megan nges greatest at L4-5. IMPRESSION: Bilateral medullary nephrocalcinosis. No evidence of obstruction. Distended urinary bladder. Stable mild compression fracture of L1. Hiatal hernia and thickening of distal esophagus. RADIATION DOSE DELIVERED: Total DLP DATA REPOSITORY: All CT scans at this facility are submitted to the National Radiology Data Registry (NRDR) Dose Index Registry (DIR) with the [employer] (A[employer]). RADIATION OPTIMIZATION: All CT scans at this facility use at least one of these dose optimization te chniques: automated exposure control; mA and/or kV adjustment per patient size (includes targeted exa ms where dose is matched to clinical indication); or iterative reconstruction.
[2022-04-24 11:16] LABS: ALT 19 U/L (14-59); AST 21 U/L (15-37); Albumin 2.6 g/dL (3.4-5.0); Alkaline Phosphatase 186 U/L (46-116); Anion Gap 12.7 mmol/L (3-11); BUN 30 mg/dL (7-18); Bilirubin, Total 0.5 mg/dL (0.2-1.0); CO2 21.3 mmol/L (21.0-32.0); Chloride 101 mmol/L (98-107); Creatine Kinase 28 U/L (26-192); Estimated GFR 24.22 (mL/min/1.73m2); Glucose 152 mg/dL (74-106); Magnesium 2.4 mg/dL (1.8-2.4); Sodium 135 mmol/L (136-145); Total Protein 7.1 g/dL (6.4-8.2); Troponin I < 50 ng/L (<or=60)
[2022-04-24 11:18] LABS: Potassium 2.8 mmol/L (3.5-5.1)
[2022-04-24] MEDS: Lactated Ringers 1,000 ML 1000 ML IV (11:18)
[2022-04-24 12:03] LABS: pCO2 (Venous) 42 mmHg (41-51); pO2 (Venous) 45 mmHg
[2022-04-24 12:04] LABS: BE (Venous) -6 mmol/L (-2-3); HCO3 (Venous) 21 mmol/L (23-28); O2 Sat (Venous) 75 %; TCO2 (Venous) 19 mmol/L (24-29)
--- NOTE | 2022-04-24 12:17 | DI.VRAD_ITS ---
PROCEDURE INFORMATION: Exam: CT Head Without Contrast Exam date and time: 04/24/2022 11:41 AM Age: 76 years old Clinical indication: Other: Fall, hi, confusion TECHNIQUE: Imaging protocol: Computed tomography of the head without contrast. COMPARISON: No relevant prior studies available. FINDINGS: Brain: Patel-white matter differentiation is within normal limits. No mass effect or midline shift. There are moderate nonspecific patchy foci of periventricular white matter hypodensity, most likely due to age related chronic microvascular ischemic changes. Sulci and basilar cisterns are prominent due to parenchymal volume loss. No extra-axial fluid collection. The small foci chronic lacunar infarcts in the right caudate nucleus and in the bilateral frontal periventricular white matter. Cerebral ventricles: No ventriculomegaly. Pituitary gland and sella: There is partial empty sella. Paranasal sinuses: Visualized sinuses are unremarkable. No fluid levels. Mastoid air cells: Visualized mastoid air cells are well aerated. Bones/joints: Unremarkable. No acute fracture. Soft tissues: Unremarkable. IMPRESSION: 1. No acute intracranial abnormality. No acute infarction or mass effect or acute intracranial hemorrhage. 2. Moderate small-vessel ischemic changes. Dictated and Authenticated by: Colin Schmitz MD. Ordering:GURPREET Rooney MD
--- NOTE | 2022-04-24 12:25 | DI.VRAD_ITS ---
PROCEDURE INFORMATION: Exam: CT Lumbar Spine Without Contrast Exam date and time: 04/24/2022 11:49 AM Age: 76 years old Clinical indication: Low back pain TECHNIQUE: Imaging protocol: Computed tomography images of the lumbar spine without contrast. COMPARISON: CR XR LUMBAR SPINE COMPLETE 04/01/2022 2:16 PM FINDINGS: Bones/joints: There is mild levoscoliosis of the cervical spine. Visualized bones are demineralized. There is a compression fracture of L1 with mild loss of height and 3-4 mm retropulsion of superior endplate. There is normal alignment. Discs/Spinal canal/Neural foramina: Moderate loss of disc height at L5-S1. There is moderate to severe left neural foraminal stenosis at L5-S1 due to spurring, facet osteoarthropathy. Otherwise no critical spinal canal stenosis noted. Kidneys and ureters: Multiple foci of nephrolithiasis along the medullary pyramids noted in the bilateral kidneys. No obstructive uropathy. Stomach and bowel: Diverticulosis of sigmoid colon without focal acute inflammation. Soft tissues: Unremarkable. Next the urinary bladder is moderately distended. IMPRESSION: 1. Compression fracture of L1 with mild loss of height of superior endplate and could be the source of pain. There is a irregular fracture line along the superior endplate and could be acute to subacute. Consider clinical correlation. This has however not changed since previous exam dated 04/01/2022. 2. Nonobstructive nephrolithiasis of the bilateral kidneys. Dictated and Authenticated by: Colin Schmitz MD. Ordering:GURPREET Rooney MD
[2022-04-24] MEDS: POTASSIUM CHLORIDE 20 MEQ/100 ML BAG 50 MEQ IVPB (12:33)
[2022-04-24] MEDS: Ondansetron 4 MG/2 ML VIAL IVP (12:33)
--- NOTE | 2022-04-24 12:36 | DI.VRAD_ITS ---
PROCEDURE INFORMATION: Exam: CT Abdomen And Pelvis Without Contrast Exam date and time: 04/24/2022 11:49 AM Age: 76 years old Clinical indication: Other: Flank pain, renal failure, UTI TECHNIQUE: Imaging protocol: Computed tomography of the abdomen and pelvis without contrast. COMPARISON: CR XR HIP RT COMPLETE AP PELVIS 04/01/2022 2:22 PM FINDINGS: Diaphragm: There is a small hiatal hernia. There is mucosal thickening and small amount of fluid noted in the hiatal hernia suspicious of gastroesophageal reflux disease. Liver: 8 mm hypodensity in the liver dome, likely a cyst. Gallbladder and bile ducts: Normal. No calcified stones. No ductal dilation. Pancreas: Normal. No ductal dilation. Spleen: Normal. No splenomegaly. Adrenal glands: Normal. No mass. Kidneys and ureters: Numerous bilateral nonobstructive nephrolithiasis along the medullary pyramids. Stomach and bowel: [id number] stool volume noted in the colon. Appendix: No evidence of appendicitis. Intraperitoneal space: Unremarkable. No free air. No significant fluid collection. Vasculature: No abdominal aortic aneurysm. Lymph nodes: No enlarged lymph nodes. Urinary bladder: Urinary bladder is moderately distended. Reproductive: There is nonspecific 1.0 cm rounded density in cervix of the uterus. Bones/joints: There is mild levoscoliosis of the lumbar spine. Endplates degenerative changes with mild loss of height of L4-L5 and moderate loss of height of L5-S1. There is spurring at L3-L4, L4-L5 and L5-S1 without significant spinal canal stenosis. There is moderate to severe neural foraminal stenosis at left L5-S1 due to osteoarthropathy and spurring. There is mild neural foraminal stenosis at right L5-S1 and [id number] neural foraminal stenosis at right L4-L5. There is a compression fracture of L1 with mild loss of height and retropulsion of superior endplate. There is a fracture line noted along the superior endplate suspicious of acute to subacute fracture. Urinary bladder is mildly distended. Soft tissues: Unremarkable. IMPRESSION: 1. No acute abdominal abnormality. 2. Numerous medullary nonobstructive nephrolithiasis of the bilateral kidneys. 3. Small hiatal hernia. There is fluid and thickening of hiatal hernia and distal esophagus suspicious of gastroesophageal reflux disease. 4. Moderately distended urinary bladder. 5. Compression fracture of L1 with mild loss height of superior endplate, unchanged since 04/01/2022. Dictated and Authenticated by: Colin Schmitz MD. Ordering:GURPREET Rooney MD
--- NOTE | 2022-04-24 13:47 | W.ED.GENAD ---
Discharge Plan Disposition Patient Disposition: [facility] INPATIENT Condition: Serious Discharge Details Clinical Impression: Orthostatic hypotension, Pre-syncope, UTI (urinary tract infection), Weakness, Acute metabolic encephalopathy, Acute dehydration, Acute renal insufficiency Admit Date/Time: 04/24/22 13:48 Admit Provider: Tonia Hodgson Attending Provider: Tonia Hodgson Primary Care Provider: Sinan Varma ED Provider: Nevin Paredes Discharge Data Discharge Date/Time-TO BE ENTERED AT DEPARTURE: 04/24/22 17:22 Medical Decision Making Patient is alert and oriented although slowed speech with unusual affect CT head secondary to presyncopal event with have an injury and confusion negative per radiology interpretation CT abdomen and pelvis ordered secondary to renal failure with reported urinary tract infection, does not show significant acute abnormality Potassium was 3.8, supplemented with 20 mEq of IV potassium, patient remains nauseous we will hold on oral potassium supplementation EKG without any overt evidence of potassium related dysrhythmia Lactate elevated at 5, likely dehydration Gap of 12.4, likely dehydration Patient is weak and orthostatic, electrolyte abnormalities, will admit BUN of 30, appears to be increased in the past month with creatinine of 2 which has been progressively worsening throughout the year Orthostatic on exam with episode of presyncope, warrants admission for observation at this time Currently being treated for urinary tract infection with 10-50,000 Pseudomonas colonies, will continue on ciprofloxacin at the discretion of the hospitalist No evidence of obstructive uropathy Discussed with Dr. Hodgson, agreeable to admission Medical Records Medical records reviewed: Yes I reviewed the patient's medical records. HPI General Date/Time Provider Initiated Documentation: 04/24/22 10:03. HPI Narrative: This 76-year-old female with past medical history of hypertension presents with report of progressive weakness with urinary tract infection and recurrent antibiotics. Patient states that she had a fall approximately a month ago and is when her symptoms worsened. She states that she was told that she had a compression fracture in her lumbar spine. She states that she subsequently went to her doctor with a small tick bite with some redness around it and was started on doxycycline for approximately 14 days. She finished this several weeks ago. She then developed some flank pain and was started on antibiotics for urinary tract infection, ciprofloxacin which she started taking this morning. She states she has been taking tramadol intermittently for pain and states this does make her slightly nauseous. She states that she has not been able to eat or drink much secondary to nausea at home. She denies any fever but has had chills. She denies any cough or chest pain. She denies any current shortness of breath. She denies any diarrhea or vomiting. She denies any blood in her stool. She denies any current abdominal or flank pain. She denies any neck pain or current headache. She states that when she was presenting to the emergency department at the request of urgent care secondary to weakness, she was trying to get out of the car and was so weak she had to be lowered to the ground. She remembers this event and denies loss of consciousness. She denies hitting her head. Denies any palpitations or chest pain at this time Related Data Home Medications Medication Instructions Recorded Confirmed amlodipine 10 mg tablet 10 mg PO DAILY 03/24/22 04/01/22 cyclobenzaprine 10 mg tablet 10 mg PO TID PRN 03/24/22 04/01/22 [id number] fumarate 18 1 tab-cap PO DAILY 03/24/22 04/01/22 mg-FA 600 mcg-vit K 40 mcg capsule (Multi For Her) sulfamethoxazole 800 1 tab PO BID 04/01/22 04/01/22 mg-trimethoprim 160 mg tablet (Bactrim DS) tramadol 50 mg tablet 50 tab PO 2XD PRN 04/01/22 04/24/22 ciprofloxacin HCl 250 mg tablet 250 mg PO BID 04/24/22 04/24/22 (Cipro) potassium chloride 20 mEq 20 meq PO DAILY 04/24/22 04/24/22 tablet,extended release Allergies Allergy/AdvReac Type Severity Reaction Status Date / Time cefuroxime [From Ceftin] Allergy Unverified 04/24/22 09:59 Penicillins Allergy Unverified 04/24/22 09:59 General Stated Complaint: [facility] MARCUS: 3 Review of Systems All systems reviewed & are unremarkable except as noted in HPI and below PFSH All Active Problems (Updated 04/26/22 @ 09:15 by YENIFER Tapia) Acute metabolic encephalopathy (Acute) Acute dehydration (Acute) Acute renal insufficiency (Acute) HTN (hypertension) (Chronic) DVT prophylaxis (Acute) Orthostatic hypotension (Acute) Pre-syncope (Acute) Weakness (Acute) Discharge planning issues (Acute) UTI (urinary tract infection) (Acute) Lumbar compression fracture (Acute) Surgical History (Updated 04/01/22 @ 13:55 by Shaneka Crooks DO) H/O section Social History Smoking/Tobacco Use Status: Never Smoking risk assessment performed?: Yes Alcohol Intake: current Alcohol Intake frequency: 3 or more drinks per day Alcohol type: beer Drug use: Never Substance use type: does not use Do you feel safe at home: Yes Do you feel safe in your relationship?: Yes Exam Const General: cooperative, comfortable and no acute distress Eyes General: appearance normal, both eyes and all related structures Chest Chest: normal inspection of the chest Resp Effort & Inspection: normal respiratory effort Auscultation: clear to auscultation bilaterally Cardio Rate: regular rate Rhythm: regular rhythm GI Inspection: normal to inspection Other: Nontender abdominal exam Skin Other: pallor Neuro General: patient alert and patient oriented x3 Extrem General: normal to inspection Other: Distal pulse intact Psych Appearance: grossly normal and well kempt Course Vital Signs Vital signs: Vital Signs Temperature 36.3 C L 04/24/22 09:54 Temperature 36.3 C L 04/24/22 09:54 Pulse 69 04/24/22 13:35 Respiratory Rate 16 04/24/22 10:07 Respiratory Effort 04/24/22 10:02 Respiratory Depth Normal 04/24/22 10:02 Blood Pressure 116/71 04/24/22 13:35 Pulse Oximetry 100 04/24/22 10:07 Lab/Test Results Lab/Test Results: 04/24/22 12:50 Blood Blood Culture - Pending 04/24/22 12:23 Blood Blood Culture - Pending Laboratory Tests Range/Units 04/24/22 04/24/22 04/24/22 10:12 10:12 10:12 WBC (4.4-10.8) 10^3/uL 11.64 H RBC (3.93-5.22) 10^6/uL 3.94 Hgb (11.2-15.7) g/dL 11.5 Hct (36.0-46.0) % 33.1 L MCV (80-95) fL 84 MCH (27.0-33.0) pg 29.2 MCHC (32.0-36.0) % 34.7 RDW (11.7-14.6) % 13.4 Plt Count (130-400) 10^3/uL 351 MPV (8.0-11.0) fL 8.9 Immature Gran % 0.3 Neutrophils % 78.9 Lymphocytes % 12.2 Monocytes % 7.9 Eosinophils % 0.1 Basophils % 0.6 Nucleated RBC % (0.0-0.3) % 0.0 Absolute Neutrophils (1.2-6.7) 10^3/uL 9.18 H Absolute Lymphocytes (1.2-3.4) 10^3/uL 1.42 Absolute Monocytes (0.1-0.8) 10^3/uL 0.92 H Absolute Eosinophils (0.0-0.7) 10^3/uL 0.01 Absolute Basophils (0.0-0.2) 10^3/uL 0.07 VBG pH (7.31-7.41) VBG pCO2 (41-51) mmHg VBG pO2 mmHg VBG HCO3 (23-28) mmol/L VBG Total CO2 (24-29) mmol/L VBG O2 Saturation % VBG Base Excess (-2-3) mmol/L VBG Lactate (0.6-1.4) mmol/L 2.6 H* Sodium (136-145) mmol/L 135 L Potassium (3.5-5.1) mmol/L 2.8 L* Chloride (98-107) mmol/L 101 Carbon Dioxide (21.0-32.0) mmol/L 21.3 Anion Gap (3-11) mmol/L 12.7 H BUN (7-18) mg/dL 30 H Creatinine (0.55-1.02) mg/dL 2.0 H Estimated GFR/1.73 m2 (mL/min/1.73m2) 24.22 Glucose (74-106) mg/dL 152 H Calcium (8.5-10.1) mg/dL 9.0 Magnesium (1.8-2.4) mg/dL 2.4 Total Bilirubin (0.2-1.0) mg/dL 0.5 AST (15-37) U/L 21 ALT (14-59) U/L 19 Alkaline Phosphatase (46-116) U/L 186 H Creatine Kinase (26-192) U/L 28 Troponin I (<or=60) ng/L < 50 Total Protein (6.4-8.2) g/dL 7.1 Albumin (3.4-5.0) g/dL 2.6 L Range/Units 04/24/22 10:12 WBC (4.4-10.8) 10^3/uL RBC (3.93-5.22) 10^6/uL Hgb (11.2-15.7) g/dL Hct (36.0-46.0) % MCV (80-95) fL MCH (27.0-33.0) pg MCHC (32.0-36.0) % RDW (11.7-14.6) % Plt Count (130-400) 10^3/uL MPV (8.0-11.0) fL Immature Gran % Neutrophils % Lymphocytes % Monocytes % Eosinophils % Basophils % Nucleated RBC % (0.0-0.3) % Absolute Neutrophils (1.2-6.7) 10^3/uL Absolute Lymphocytes (1.2-3.4) 10^3/uL Absolute Monocytes (0.1-0.8) 10^3/uL Absolute Eosinophils (0.0-0.7) 10^3/uL Absolute Basophils (0.0-0.2) 10^3/uL VBG pH (7.31-7.41) 7.30 L VBG pCO2 (41-51) mmHg 42 VBG pO2 mmHg 45 VBG HCO3 (23-28) mmol/L 21 L VBG Total CO2 (24-29) mmol/L 19 L VBG O2 Saturation % 75 VBG Base Excess (-2-3) mmol/L -6 L VBG Lactate (0.6-1.4) mmol/L Sodium (136-145) mmol/L Potassium (3.5-5.1) mmol/L Chloride (98-107) mmol/L Carbon Dioxide (21.0-32.0) mmol/L Anion Gap (3-11) mmol/L BUN (7-18) mg/dL Creatinine (0.55-1.02) mg/dL Estimated GFR/1.73 m2 (mL/min/1.73m2) Glucose (74-106) mg/dL Calcium (8.5-10.1) mg/dL Magnesium (1.8-2.4) mg/dL Total Bilirubin (0.2-1.0) mg/dL AST (15-37) U/L ALT (14-59) U/L Alkaline Phosphatase (46-116) U/L Creatine Kinase (26-192) U/L Troponin I (<or=60) ng/L Total Protein (6.4-8.2) g/dL Albumin (3.4-5.0) g/dL Critical Care Time Critical Care Time Critical Care Time: Yes Total Critical Care Time: 40 Attestation: Telemetry monitoring, IV potassium, admission to hospital, fluid resuscitation
--- NOTE | 2022-04-24 13:53 | HPE_ITS ---
Date of service: 04/24/22 Time of Service: 13:53 [facility] All Active Problems (Updated 04/24/22 @ 00:01 by ROSEANNA HERNANDEZ) Lumbar compression fracture (Acute) Medical History (Updated 04/24/22 @ 00:01 by ROSEANNA HERNANDEZ) HTN (hypertension) Surgical History (Updated 04/01/22 @ 13:55 by Shaneka Crooks DO) H/O section Social History Smoking/Tobacco Use Status: Never Smoking risk assessment performed?: Yes Alcohol Intake: current Alcohol Intake frequency: 3 or more drinks per day Alcohol type: beer Drug use: Never Substance use type: does not use Do you feel safe at home: Yes Do you feel safe in your relationship?: Yes Meds Allergies and Home Medications Allergies Allergy/AdvReac Type Severity Reaction Status Date / Time cefuroxime [From Ceftin] Allergy Unverified 04/24/22 09:59 Penicillins Allergy Unverified 04/24/22 09:59 Home Medications Medication Instructions Recorded Confirmed Type amlodipine 10 mg tablet 10 mg PO DAILY 03/24/22 04/01/22 History cyclobenzaprine 10 mg tablet 10 mg PO TID PRN 03/24/22 04/01/22 History [id number]-wyc-[id number] fumarate 18 1 tab-cap PO DAILY 03/24/22 04/01/22 History mg-FA 600 mcg-vit K 40 mcg capsule (Multi For Her) sulfamethoxazole 800 1 tab PO BID 04/01/22 04/01/22 History mg-trimethoprim 160 mg tablet (Bactrim DS) tramadol 50 mg tablet 50 tab PO 2XD PRN 04/01/22 04/24/22 History ciprofloxacin HCl 250 mg tablet 250 mg PO BID 04/24/22 04/24/22 History (Cipro) potassium chloride 20 mEq 20 meq PO DAILY 04/24/22 04/24/22 History tablet,extended release Results Labs Result diagrams: 04/24/22 10:12 04/24/22 10:12 Labs: Laboratory Results - last 24 hr 04/24/22 04/24/22 04/24/22 10:12 10:12 10:12 WBC 11.64 H RBC 3.94 Hgb 11.5 Hct 33.1 L MCV 84 MCH 29.2 MCHC 34.7 RDW 13.4 Plt Count 351 MPV 8.9 Immature Gran % 0.3 Neutrophils % 78.9 Lymphocytes % 12.2 Monocytes % 7.9 Eosinophils % 0.1 Basophils % 0.6 Nucleated RBC % 0.0 Absolute Neutrophils 9.18 H Absolute Lymphocytes 1.42 Absolute Monocytes 0.92 H Absolute Eosinophils 0.01 Absolute Basophils 0.07 VBG pH VBG pCO2 VBG pO2 VBG HCO3 VBG Total CO2 VBG O2 Saturation VBG Base Excess VBG Lactate 2.6 H* Sodium 135 L Potassium 2.8 L* Chloride 101 Carbon Dioxide 21.3 Anion Gap 12.7 H BUN 30 H Creatinine 2.0 H Estimated GFR/1.73 m2 24.22 Glucose 152 H Calcium 9.0 Magnesium 2.4 Total Bilirubin 0.5 AST 21 ALT 19 Alkaline Phosphatase 186 H Creatine Kinase 28 Troponin I < 50 Total Protein 7.1 Albumin 2.6 L 04/24/22 10:12 WBC RBC Hgb Hct MCV MCH MCHC RDW Plt Count MPV Immature Gran % Neutrophils % Lymphocytes % Monocytes % Eosinophils % Basophils % Nucleated RBC % Absolute Neutrophils Absolute Lymphocytes Absolute Monocytes Absolute Eosinophils Absolute Basophils VBG pH 7.30 L VBG pCO2 42 VBG pO2 45 VBG HCO3 21 L VBG Total CO2 19 L VBG O2 Saturation 75 VBG Base Excess -6 L VBG Lactate Sodium Potassium Chloride Carbon Dioxide Anion Gap BUN Creatinine Estimated GFR/1.73 m2 Glucose Calcium Magnesium Total Bilirubin AST ALT Alkaline Phosphatase Creatine Kinase Troponin I Total Protein Albumin Last Vital Signs Temp 36.3 C L 04/24/22 09:54 Pulse 69 04/24/22 13:35 Resp 16 04/24/22 10:07 BP 116/71 04/24/22 13:35 Pulse Ox 100 04/24/22 10:07
[2022-04-24 14:04] LABS: Lab Add On Test DONE
[2022-04-24 14:13] LABS: Source Nasal/Nares
[2022-04-24 14:18] LABS: C-Reactive Protein 0.42 mg/dL (0.0-0.3)
[2022-04-24 14:22] LABS: Lactate 1.1 mmol/L (0.6-1.4)
[2022-04-24 14:34] LABS: Procalcitonin 0.1 ng/mL
[2022-04-24 14:40] LABS: Bilirubin Negative (Negative); Blood Trace-intact (Negative); Clarity Clear (Clear); Glucose Negative (Negative); Ketones Negative (Negative); Leukocyte Esterase Trace (Negative); Nitrite Negative (Negative); Specific Gravity 1.015 (1.005-1.025); Urobilinogen 0.2 EU/dL (Up TO 0.2)
[2022-04-24 14:47] LABS: Bacteria Rare HPF (Negative); C & S Indicated? No/Sq. Contamination; Casts Negative LPF (Negative); Crystals Negative HPF (Negative); Epithelial Cells Many HPF (Negative); Mucus Trace (Negative)
[2022-04-24 15:03] LABS: COVID-19 PCR Negative (Negative)
[2022-04-24] MEDS: CIPROFLOXACIN 200 MG/100 ML BAG 100 MG IVPB (15:25)
--- NOTE | 2022-04-24 15:58 | HPE_ITS ---
Date of service: 04/24/22 Time of Service: 15:59 Assessment and Plan Assessment and plan (1) UTI (urinary tract infection): Start date: 04/24/22 Start time: 18:04 Status: Acute Assessment and plan: Antibiotics, hydration Recheck electrolytes 04/25/22 (2) HTN (hypertension): Start date: 04/24/22 Assessment and plan: Chronic - monitor, continue home meds (3) Weakness: Start date: 04/24/22 Status: Acute Assessment and plan: Nutrition eval, PT eval (4) Toxic metabolic encephalopathy: Status: Acute Assessment and plan: Due to UTI - treat underlying infection (5) Pre-syncope: Status: Acute Assessment and plan: In setting of orthostasis. Continue IVF initiated in the ED. Monitor orthostatic VS. (6) Orthostatic hypotension: Status: Acute Assessment and plan: Monitor orthostatic VS BID while hydrating IV. (7) Discharge planning issues: Start date: 04/24/22 Status: Acute Assessment and plan: unable to discuss discharge with patient, she did not want to speak with anyone (8) DVT prophylaxis: Status: Acute Assessment and plan: SC heparin History of Present Illness History of Present Illness Chief Complaint: UTI Narrative: This 76-year-old female patient with past medical history of hypertension presents to the emergency department with report of progressive weakness with urinary tract infection and recurrent antibiotics.? She told the ED provider that she had a fall approximately a month ago and that is when her symptoms wo rsened.? She also told them that she subsequently went to her doctor with a small tick bite with some redness around it and was started on doxycycline for approximately 14 days, and she finished it several weeks ago. She then recently developed some flank pain and was started on antibiotics for urinary tract infection, ciprofloxacin which she started taking this morning.? She reports to them she has been taking tramadol intermittently for pain and states this does make her slightly nauseous.?I went to the emergency department to examine her and discuss with her what's going on and she refused to speak with me. PFSH All Active Problems (Updated 04/25/22 @ 10:44 by Tonia Hodgson MD) DVT prophylaxis (Acute) Orthostatic hypotension (Acute) Pre-syncope (Acute) Toxic metabolic encephalopathy (Acute) Weakness (Acute) Discharge planning issues (Acute) UTI (urinary tract infection) (Acute) Lumbar compression fracture (Acute) Medical History (Updated 04/25/22 @ 10:44 by Tonia Hodgson MD) HTN (hypertension) Surgical History (Updated 04/01/22 @ 13:55 by Shaneka Crooks DO) H/O section Social History Smoking/Tobacco Use Status: Never Smoking risk assessment performed?: Yes Alcohol Intake: current Alcohol Intake frequency: 3 or more drinks per day Alcohol type: beer Drug use: Never Substance use type: does not use Do you feel safe at home: Yes Do you feel safe in your relationship?: Yes Meds Allergies and Home Medications Allergies Allergy/AdvReac Type Severity Reaction Status Date / Time cefuroxime [From Ceftin] Allergy Unverified 04/24/22 09:59 Penicillins Allergy Unverified 04/24/22 09:59 Home Medications Medication Instructions Recorded Confirmed Type amlodipine 10 mg tablet 10 mg PO DAILY 03/24/22 04/01/22 History cyclobenzaprine 10 mg tablet 10 mg PO TID PRN 03/24/22 04/01/22 History [id number] fumarate 18 1 tab-cap PO DAILY 03/24/22 04/01/22 History mg-FA 600 mcg-vit K 40 mcg capsule (Multi For Her) sulfamethoxazole 800 1 tab PO BID 04/01/22 04/01/22 History mg-trimethoprim 160 mg tablet (Bactrim DS) tramadol 50 mg tablet 50 tab PO 2XD PRN 04/01/22 04/24/22 History ciprofloxacin HCl 250 mg tablet 250 mg PO BID 04/24/22 04/24/22 History (Cipro) potassium chloride 20 mEq 20 meq PO DAILY 04/24/22 04/24/22 History tablet,extended release Exam Narrative Exam Narrative: Unable to perform exam, Sadia refused to converse or let me examine her. I did let Dr Hodgson know about this. She is awake, alert, supine in bed. She opened her eyes when I came in the room. I explained I was there to discuss admitting her and she said she did not want to speak to anyone, please leave. Results Labs Result diagrams: 04/25/22 05:15 04/25/22 05:15 Labs: Laboratory Results - last 24 hr 06/11/22 06/11/22 06/11/22 10:12 10:12 10:12 WBC 11.64 H RBC 3.94 Hgb 11.5 Hct 33.1 L MCV 84 MCH 29.2 MCHC 34.7 RDW 13.4 Plt Count 351 MPV 8.9 Immature Gran % 0.3 Neutrophils % 78.9 Lymphocytes % 12.2 Monocytes % 7.9 Eosinophils % 0.1 Basophils % 0.6 Nucleated RBC % 0.0 Absolute Neutrophils 9.18 H Absolute Lymphocytes 1.42 Absolute Monocytes 0.92 H Absolute Eosinophils 0.01 Absolute Basophils 0.07 VBG pH VBG pCO2 VBG pO2 VBG HCO3 VBG Total CO2 VBG O2 Saturation VBG Base Excess VBG Lactate 2.6 H* Sodium 135 L Potassium 2.8 L* Chloride 101 Carbon Dioxide 21.3 Anion Gap 12.7 H BUN 30 H Creatinine 2.0 H Estimated GFR/1.73 m2 24.22 Glucose 152 H Calcium 9.0 Magnesium 2.4 Total Bilirubin 0.5 AST 21 ALT 19 Alkaline Phosphatase 186 H Creatine Kinase 28 Troponin I < 50 C-Reactive Protein Total Protein 7.1 Albumin 2.6 L Procalcitonin Urine Color Urine Clarity Urine pH Ur Specific [place] Urine Protein Urine Ketones Urine Blood Urine Nitrite Urine Bilirubin Urine Urobilinogen Ur Leukocyte Esterase Urine RBC Urine WBC Ur Epithelial Cells Urine Crystals Urine Bacteria Urine Casts Urine Mucus Ur Culture Indicated? Urine Glucose COVID-19 Source SARS-CoV-2 (PCR) Add-On Test Request 04/24/22 04/24/22 04/24/22 10:12 10:12 10:12 WBC RBC Hgb Hct MCV MCH MCHC RDW Plt Count MPV Immature Gran % Neutrophils % Lymphocytes % Monocytes % Eosinophils % Basophils % Nucleated RBC % Absolute Neutrophils Absolute Lymphocytes Absolute Monocytes Absolute Eosinophils Absolute Basophils VBG pH 7.30 L VBG pCO2 42 VBG pO2 45 VBG HCO3 21 L VBG Total CO2 19 L VBG O2 Saturation 75 VBG Base Excess -6 L VBG Lactate Sodium Potassium Chloride Carbon Dioxide Anion Gap BUN Creatinine Estimated GFR/1.73 m2 Glucose Calcium Magnesium Total Bilirubin AST ALT Alkaline Phosphatase Creatine Kinase Troponin I C-Reactive Protein Total Protein Albumin Procalcitonin 0.1 Urine Color Urine Clarity Urine pH Ur Specific [place] Urine Protein Urine Ketones Urine Blood Urine Nitrite Urine Bilirubin Urine Urobilinogen Ur Leukocyte Esterase Urine RBC Urine WBC Ur Epithelial Cells Urine Crystals Urine Bacteria Urine Casts Urine Mucus Ur Culture Indicated? Urine Glucose COVID-19 Source SARS-CoV-2 (PCR) Add-On Test Request DONE 04/24/22 04/24/22 04/24/22 10:12 14:08 14:12 WBC RBC Hgb Hct MCV MCH MCHC RDW Plt Count MPV Immature Gran % Neutrophils % Lymphocytes % Monocytes % Eosinophils % Basophils % Nucleated RBC % Absolute Neutrophils Absolute Lymphocytes Absolute Monocytes Absolute Eosinophils Absolute Basophils VBG pH VBG pCO2 VBG pO2 VBG HCO3 VBG Total CO2 VBG O2 Saturation VBG Base Excess VBG Lactate 1.1 Sodium Potassium Chloride Carbon Dioxide Anion Gap BUN Creatinine Estimated GFR/1.73 m2 Glucose Calcium Magnesium Total Bilirubin AST ALT Alkaline Phosphatase Creatine Kinase Troponin I C-Reactive Protein 0.42 H Total Protein Albumin Procalcitonin Urine Color Urine Clarity Urine pH Ur Specific [place] Urine Protein Urine Ketones Urine Blood Urine Nitrite Urine Bilirubin Urine Urobilinogen Ur Leukocyte Esterase Urine RBC Urine WBC Ur Epithelial Cells Urine Crystals Urine Bacteria Urine Casts Urine Mucus Ur Culture Indicated? Urine Glucose COVID-19 Source Nasal/Nares SARS-CoV-2 (PCR) Negative Add-On Test Request 04/24/22 14:32 WBC RBC Hgb Hct MCV MCH MCHC RDW Plt Count MPV Immature Gran % Neutrophils % Lymphocytes % Monocytes % Eosinophils % Basophils % Nucleated RBC % Absolute Neutrophils Absolute Lymphocytes Absolute Monocytes Absolute Eosinophils Absolute Basophils VBG pH VBG pCO2 VBG pO2 VBG HCO3 VBG Total CO2 VBG O2 Saturation VBG Base Excess VBG Lactate Sodium Potassium Chloride Carbon Dioxide Anion Gap BUN Creatinine Estimated GFR/1.73 m2 Glucose Calcium Magnesium Total Bilirubin AST ALT Alkaline Phosphatase Creatine Kinase Troponin I C-Reactive Protein Total Protein Albumin Procalcitonin Urine Color Yellow Urine Clarity Clear Urine pH 7.0 Ur Specific [place] 1.015 Urine Protein Negative Urine Ketones Negative Urine Blood Trace-intact H Urine Nitrite Negative Urine Bilirubin Negative Urine Urobilinogen 0.2 Ur Leukocyte Esterase Trace H Urine RBC 3-5 H Urine WBC 3-5 Ur Epithelial Cells Many Urine Crystals Negative Urine Bacteria Rare Urine Casts Negative Urine Mucus Trace Ur Culture Indicated? No/Sq. Contamination Urine Glucose Negative COVID-19 Source SARS-CoV-2 (PCR) Add-On Test Request Last Vital Signs Temp 36.3 C L 04/24/22 09:54 Pulse 69 04/24/22 13:35 Resp 16 04/24/22 10:07 BP 116/71 04/24/22 13:35 Pulse Ox 100 04/24/22 10:07
[2022-04-24] MEDS: Heparin 5,000 UNITS/ML VIAL 5000 UNITS SC (16:00)
[2022-04-24] MEDS: Normal Saline Flush 10 ML SYR IVP (23:27)
[2022-04-25] VITALS (9 sets, daily range): BP systolic 93–121; BP diastolic 63–73; PULSE 63–72; RESP 16–18; TEMP 35.9–37.2; O2SAT 98–100
[2022-04-25] MEDS: CIPROFLOXACIN 200 MG/100 ML BAG 100 MG IVPB (03:56)
[2022-04-25 05:40] LABS: Abs Immature Grans 0.02 10^3/uL (0.0-0.06); Absolute Basophil Count 0.06 10^3/uL (0.0-0.2); Absolute Eosinophil Count 0.09 10^3/uL (0.0-0.7); Absolute Lymphocyte Count 1.93 10^3/uL (1.2-3.4); Absolute Neutrophil Count 5.83 10^3/uL (1.2-6.7); Basophils % 0.7; HCT 28.9 % (36.0-46.0); HGB 9.7 g/dL (11.2-15.7); Immature Grans % 0.2; Lymphocytes % 21.9; MCH 28.4 pg (27.0-33.0); MCHC 33.6 % (32.0-36.0); MCV 85 fL (80-95); MPV 8.5 fL (8.0-11.0); Monocytes % 10.2; Platelet Count 282 10^3/uL (130-400); RBC 3.42 10^6/uL (3.93-5.22); RDW 13.7 % (11.7-14.6); RDW-SD 42.5 fL; WBC 8.83 10^3/uL (4.4-10.8)
[2022-04-25 05:57] LABS: Anion Gap 10.7 mmol/L (3-11); BUN 20 mg/dL (7-18); CO2 20.3 mmol/L (21.0-32.0); CREATININE 1.5 mg/dL (0.55-1.02); Calcium 8.4 mg/dL (8.5-10.1); Chloride 104 mmol/L (98-107); Estimated GFR 33.76 (mL/min/1.73m2); Glucose 122 mg/dL (74-106); Magnesium 2.2 mg/dL (1.8-2.4); Potassium 3.2 mmol/L (3.5-5.1); Sodium 135 mmol/L (136-145)
[2022-04-25] MEDS: Potassium Chloride 20 MEQ TABCR PO (07:59)
[2022-04-25] MEDS: amLODIPine 10 MG TAB PO (07:59)
[2022-04-25] MEDS: Potassium Chloride 20 MEQ TABCR 40 MEQ PO (10:12)
--- NOTE | 2022-04-25 11:01 | W.PM.PROGNOT ---
Date of Service Date of service: 04/25/22 Time of Service: 11:01 Assessment and Plan Assessment and plan (1) UTI (urinary tract infection): Start date: 04/24/22 Start time: 18:04 Status: Acute Assessment and plan: urine growing pseudomonas, refusing cipro stating it causes her nausea will change to cefepime day 1/3 based on sensitivities. (2) HTN (hypertension): Start date: 04/24/22 Status: Chronic Assessment and plan: with orthostatic hypotension now. hold amlodipine (3) Weakness: Start date: 04/24/22 Status: Acute Assessment and plan: Nutrition eval, PT eval (4) Toxic metabolic encephalopathy: Status: Resolved Assessment and plan: Due to UTI - treat underlying infection (5) Pre-syncope: Status: Acute Assessment and plan: In setting of orthostasis. Continue IVF initiated in the ED. Monitor orthostatic VS. hold amlodipine consider midodrine. (6) Orthostatic hypotension: Status: Acute Assessment and plan: Monitor orthostatic VS BID while hydrating IV. (7) DVT prophylaxis: Status: Acute Assessment and plan: SC heparin (8) Discharge planning issues: Start date: 04/24/22 Status: Acute Assessment and plan: will discharge to home with no services when medically stable. discussed with Dr Hodgson Subjective Subjective Patient reports: tolerating liquids well, tolerating a regular diet, voiding w/o difficulty, nausea and afebrile; denies shortness of breath Interval history since last seen: was having nausea this am which she attributes to the cipro. she received phenergan with good effect and was able to eat 100% of her lunch. Exam Const General: no acute distress and ill appearing (younger than stated age) Nutritional Appearance: thin Orientation: alert, awake and oriented x3 [facility] Head: normal to inspection, normocephalic and atraumatic Mouth: oral mucosae normal Resp Effort & Inspection: normal respiratory effort Auscultation: clear to auscultation bilaterally Cardio Rate: regular rate Rhythm: regular rhythm GI Inspection: normal to inspection Palpation: soft Auscultation: normal bowel sounds Skin General skin exam: no rashes or lesions noted Neuro General: patient alert, patient awake and patient oriented x3 Cognition: normal cognition Speech: speech normal Motor: muscle tone normal throughout Extrem General: normal to inspection, full ROM and no pedal edema Psych Appearance: grossly normal Mental Status: mental status grossly normal Speech and Movement: speech and movement normal Mood: irritable mood Attitude: cooperative Thought Process: normal Thought Content: normal Objective Last Vital Signs Temp 36.0 C L 04/25/22 04:05 Pulse 72 04/25/22 07:00 Resp 16 04/25/22 04:05 BP 108/65 04/25/22 04:05 Pulse Ox 98 04/25/22 04:05 Laboratory Results - last 24 hr 04/24/22 04/24/22 04/24/22 10:12 10:12 10:12 WBC 11.64 H RBC 3.94 Hgb 11.5 Hct 33.1 L MCV 84 MCH 29.2 MCHC 34.7 RDW 13.4 Plt Count 351 MPV 8.9 Immature Gran % 0.3 Neutrophils % 78.9 Lymphocytes % 12.2 Monocytes % 7.9 Eosinophils % 0.1 Basophils % 0.6 Nucleated RBC % 0.0 Absolute Neutrophils 9.18 H Absolute Lymphocytes 1.42 Absolute Monocytes 0.92 H Absolute Eosinophils 0.01 Absolute Basophils 0.07 VBG pH 7.30 L VBG pCO2 42 VBG pO2 45 VBG HCO3 21 L VBG Total CO2 19 L VBG O2 Saturation 75 VBG Base Excess -6 L VBG Lactate Sodium 135 L Potassium 2.8 L* Chloride 101 Carbon Dioxide 21.3 Anion Gap 12.7 H BUN 30 H Creatinine 2.0 H Estimated GFR/1.73 m2 24.22 Glucose 152 H Calcium 9.0 Magnesium 2.4 Total Bilirubin 0.5 AST 21 ALT 19 Alkaline Phosphatase 186 H Creatine Kinase 28 Troponin I < 50 C-Reactive Protein Total Protein 7.1 Albumin 2.6 L Procalcitonin Urine Color Urine Clarity Urine pH Ur Specific [place] Urine Protein Urine Ketones Urine Blood Urine Nitrite Urine Bilirubin Urine Urobilinogen Ur Leukocyte Esterase Urine RBC Urine WBC Ur Epithelial Cells Urine Crystals Urine Bacteria Urine Casts Urine Mucus Ur Culture Indicated? Urine Glucose COVID-19 Source SARS-CoV-2 (PCR) Add-On Test Request 04/24/22 04/24/22 04/24/22 10:12 10:12 10:12 WBC RBC Hgb Hct MCV MCH MCHC RDW Plt Count MPV Immature Gran % Neutrophils % Lymphocytes % Monocytes % Eosinophils % Basophils % Nucleated RBC % Absolute Neutrophils Absolute Lymphocytes Absolute Monocytes Absolute Eosinophils Absolute Basophils VBG pH VBG pCO2 VBG pO2 VBG HCO3 VBG Total CO2 VBG O2 Saturation VBG Base Excess VBG Lactate Sodium Potassium Chloride Carbon Dioxide Anion Gap BUN Creatinine Estimated GFR/1.73 m2 Glucose Calcium Magnesium Total Bilirubin AST ALT Alkaline Phosphatase Creatine Kinase Troponin I C-Reactive Protein 0.42 H Total Protein Albumin Procalcitonin 0.1 Urine Color Urine Clarity Urine pH Ur Specific [place] Urine Protein Urine Ketones Urine Blood Urine Nitrite Urine Bilirubin Urine Urobilinogen Ur Leukocyte Esterase Urine RBC Urine WBC Ur Epithelial Cells Urine Crystals Urine Bacteria Urine Casts Urine Mucus Ur Culture Indicated? Urine Glucose COVID-19 Source SARS-CoV-2 (PCR) Add-On Test Request DONE 04/24/22 04/24/22 04/24/22 14:08 14:12 14:32 WBC RBC Hgb Hct MCV MCH MCHC RDW Plt Count MPV Immature Gran % Neutrophils % Lymphocytes % Monocytes % Eosinophils % Basophils % Nucleated RBC % Absolute Neutrophils Absolute Lymphocytes Absolute Monocytes Absolute Eosinophils Absolute Basophils VBG pH VBG pCO2 VBG pO2 VBG HCO3 VBG Total CO2 VBG O2 Saturation VBG Base Excess VBG Lactate 1.1 Sodium Potassium Chloride Carbon Dioxide Anion Gap BUN Creatinine Estimated GFR/1.73 m2 Glucose Calcium Magnesium Total Bilirubin AST ALT Alkaline Phosphatase Creatine Kinase Troponin I C-Reactive Protein Total Protein Albumin Procalcitonin Urine Color Yellow Urine Clarity Clear Urine pH 7.0 Ur Specific [place] 1.015 Urine Protein Negative Urine Ketones Negative Urine Blood Trace-intact H Urine Nitrite Negative Urine Bilirubin Negative Urine Urobilinogen 0.2 Ur Leukocyte Esterase Trace H Urine RBC 3-5 H Urine WBC 3-5 Ur Epithelial Cells Many Urine Crystals Negative Urine Bacteria Rare Urine Casts Negative Urine Mucus Trace Ur Culture Indicated? No/Sq. Contamination Urine Glucose Negative COVID-19 Source Nasal/Nares SARS-CoV-2 (PCR) Negative Add-On Test Request 04/25/22 04/25/22 05:15 05:15 WBC 8.83 RBC 3.42 L Hgb 9.7 L Hct 28.9 L MCV 85 MCH 28.4 MCHC 33.6 D RDW 13.7 Plt Count 282 MPV 8.5 Immature Gran % 0.2 Neutrophils % 66.0 Lymphocytes % 21.9 Monocytes % 10.2 Eosinophils % 1.0 Basophils % 0.7 Nucleated RBC % 0.0 Absolute Neutrophils 5.83 Absolute Lymphocytes 1.93 Absolute Monocytes 0.90 H Absolute Eosinophils 0.09 Absolute Basophils 0.06 VBG pH VBG pCO2 VBG pO2 VBG HCO3 VBG Total CO2 VBG O2 Saturation VBG Base Excess VBG Lactate Sodium 135 L Potassium 3.2 L Chloride 104 Carbon Dioxide 20.3 L Anion Gap 10.7 BUN 20 H Creatinine 1.5 H Estimated GFR/1.73 m2 33.76 Glucose 122 H Calcium 8.4 L Magnesium 2.2 Total Bilirubin AST ALT Alkaline Phosphatase Creatine Kinase Troponin I C-Reactive Protein Total Protein Albumin Procalcitonin Urine Color Urine Clarity Urine pH Ur Specific [place] Urine Protein Urine Ketones Urine Blood Urine Nitrite Urine Bilirubin Urine Urobilinogen Ur Leukocyte Esterase Urine RBC Urine WBC Ur Epithelial Cells Urine Crystals Urine Bacteria Urine Casts Urine Mucus Ur Culture Indicated? Urine Glucose COVID-19 Source SARS-CoV-2 (PCR) Add-On Test Request
--- NOTE | 2022-04-25 11:10 | PT.INIE ---
PT Notes Visit Reasons: Toxic metabolic encephalopathy-UTI, dehydration Physical Therapy Inpatient Initial Evaluation Date: 04/25/22 Referring Doctor: Tonia Hodgson MD PT Orders: PT CONSULT: Limited Ability Precautions: Fall. Standard. Patient Profile/Admitting Diagnosis: Sadia is a 76 yo female that presented to the ER on 04/24/22 for weakness. She was found to have UTI and be dehydrated. She reports having a week of falls and was given FWW. PMHX: See EMR Social History/Home Situation: Lives with in 2 level home, has 2 SHAUN. States not having to go upstairs. She states otherwise independent at baseline. Had a series of falls recently and may be using FWW. Equipment Owned/DME: FWW Subjective: Cleared by nursing to see patient and patient is agreeable to PT. Patient is resting in bed at time of consult and connected to telemetry and IV. Objective: General Observation: Initially checked on patient and alert stating not needing PT. She received anti-nausea medication and following this she appeared groggy with decreased alertness, slumping with sitting, and minimal shuffling of feet to scoot toward head of bed. Mental Status: A&O x3 Pain: None reported ROM: Right Upper Extremity: Shoulder Flexion Moderate impairment. Shoulder abduction Moderate impairment. Elbow flexion WFL. Wrist flexion WFL. Opening and closing of hand WFL. Left Upper Extremity: Shoulder Flexion Moderate impairment. Shoulder abduction Moderate impairment. Elbow flexion WFL. Wrist flexion WFL. Opening and closing of hand WFL. Right Lower Extremity: Hip flexion WFL. Hip abduction WFL. Knee flexion WFL. Ankle dorsiflexion WFL. Ankle plantarflexion WFL. Left Lower Extremity: Hip flexion WFL. Hip abduction WFL. Knee flexion WFL. Ankle dorsiflexion WFL. Ankle plantarflexion WFL. Strength: Right Upper Extremity: Shoulder flexors 4/5. Shoulder abductors 4/5. Elbow flexors 4+/5. Elbow extensors 4/5. Mammography Tech strong. Left Upper Extremity: Shoulder flexors 5/5. Shoulder abductors 5/5. Elbow flexors 4+/5. Elbow extensors 4/5. Mammography Tech strong. Right Lower Extremity: Hip flexors 4/5. Hip abductors 4/5. Knee flexors 3/5. Knee extensors 5-/5. Ankle dorsiflexors 5/5. Ankle plantarflexors 5/5. Left Lower Extremity: Hip flexors 4/5. Hip abductors 4/5. Knee flexors 3/5. Knee extensors 5-/5. Ankle dorsiflexors 4+/5. Ankle plantarflexors 5/5. Sensation: Intact as to pain and pressure on bilateral lower extremities. Bed Mobility/Transfers: Supine to sit: Mod A Sit to supine: Min A with legs Sit to stand: Min A Stand to sit: CGA Gait: Ambulated to HOB with left side step using FWW, CGA. High need for verbal cues and she barely moved feet while scooting. Stairs: Not assessed Balance: Static Sitting: Poor Dynamic Sitting: Poor Static Standing: Poor Dynamic Standing: Poor Special Tests: Mobility Limitations Standardized Measure [employer] AM-PAC 6 clicks Basic Mobility Inpatient Short Form: Raw Score: 9 CMS Score: 81.38% Informed Consent/Education: Patient instructed in purpose of PT consult and plan of care. Assessment: Patient presents with clinical signs and symptoms consistent with current/admitting diagnoses that have resulted to mobility limitations, gait instability, generalized weakness, and impairment of motor control as demonstrated by the following impairment level findings: 1. Decreased strength to shoulder and hamstring major muscle groups 2. Impaired sitting/standing balance 3. Impaired activity tolerance Impairments are contributing to the following functional limitations: 1. Dependent bed mobility skills 2. Increased dependence with transfers 3. Inability to safely ambulate without assistive device and physical assistance 4. Increase completion time for mobility ADL performance 5. Increased fall risk 6. Inability to negotiate steps alone safely Patient is assessed as a High complexity based on the following: History: 76 year old female with impairment level findings, functional limitations, and past medical history as indicated above Examination: Demonstrable impairment in strength, balance, and mobility level with underlying impairments and functional limitations as documented above Presentation: Evolving Decision Making: High complexity Goals: Goals x1 week 1. Supine-Sit: independent 2. Sit-Supine: independent 3. Sit-Stand: independent 4. Stand-Sit: independent 5. Bed-Chair: independent 6. Chair-Bed: independent 7. Independent gait on level surface with use of least restrictive device for at least 300 feet without report of pain nor dyspnea 8. Independent stair negotiation while holding onto bilateral rails for at least 10 steps without report of pain nor dyspnea 9. Independent with home exercise program 10. Good static and dynamic standing balance/tolerance Plan of Care/Treatment Plan: 1-2x/day, 7 days/week x 1 week. Plan of care has been reviewed with the [employer]ER providing the service under Physical Therapy direction. Initiate Physical Therapy intervention for strengthening, bed mobility, transfers, gait, stairs, balance training, and use of assistive device. Discharge Plan DISCHARGE RECOMMENDATIONS: SNF for continued rehabilitation versus home with assist when medically stable. Will monitor progress. TREATMENT CODE/TIME: 10:50- 11:10 (20 minutes), [id number] Thank you for the opportunity to participate in the care of this patient. Paula Joiner, PT, DPT, OCS [facility] [place], [place]
[2022-04-25] MEDS: CEFEPIME 1 GM in Normal Saline 50 ML IVPB ×2 (12:52→23:09)
--- NOTE | 2022-04-25 21:34 | PDOC.CMIN ---
- If Service Date Differs Date of service: 04/25/22 Time of Service: 21:34 Care Management Initial Assess REASON FOR HOSPITALIZATION:: Toxic metabolic encephalopathy-UTI, dehydration PAST MEDICAL HISTORY/PAST SURGICAL HISTORY:: Section. This 76-year-old female patient with past medical history of hypertension presents to the emergency department with report of progressive weakness with urinary tract infection and recurrent antibiotics.? She told the ED provider that she had a fall approximately a month ago and that is when her symptoms worsened.? She also told them that she subsequently went to her doctor with a small tick bite with some redness around it and was started on doxycycline for approximately 14 days, and she finished it several weeks ago. She then recently developed some flank pain and was started on antibiotics for urinary tract infection, ciprofloxacin which she started taking this morning.? She reports to them she has been taking tramadol intermittently for pain and states this does make her slightly nauseous. Refused to speak with provider upon admission. CODE STATUS:: Full Code CURRENT HOME/COMMUNITY SERVICES/EQUIPMENT:: Tub seat/bench, hand held shower, FWW, PT PRIMARY CARE PHYSICIAN:: YENIFER Mckinnon POTENTIAL DISCHARGE NEEDS:: Evaluations for increased services. PATIENT/FAMILY EDUCATION NEEDS:: Review discharge instructions, discuss Ask Me Three. ANTICIPATED BARRIERS TO DISCHARGE:: None identified. TRANSPORTATION:: To be determined by mobility and disposition.
[2022-04-26] VITALS (10 sets, daily range): BP systolic 93–119; BP diastolic 59–78; PULSE 65–89; RESP 16–18; TEMP 36.6–37.3; O2SAT 95–100
[2022-04-26 07:00] LABS: HCT 29.4 % (36.0-46.0); MCH 29.2 pg (27.0-33.0); MCV 86 fL (80-95); MPV 8.9 fL (8.0-11.0); Platelet Count 260 10^3/uL (130-400); RBC 3.43 10^6/uL (3.93-5.22); RDW 14.1 % (11.7-14.6); RDW-SD 44.3 fL; WBC 7.69 10^3/uL (4.4-10.8)
[2022-04-26] MEDS: Potassium Chloride 20 MEQ TABCR PO ×2 (07:23→16:20)
[2022-04-26 07:37] LABS: Anion Gap 7.7 mmol/L (3-11); BUN 13 mg/dL (7-18); CO2 22.3 mmol/L (21.0-32.0); CREATININE 1.3 mg/dL (0.55-1.02); Chloride 109 mmol/L (98-107); Estimated GFR 39.82 (mL/min/1.73m2); Glucose 126 mg/dL (74-106); Potassium 3.3 mmol/L (3.5-5.1); Sodium 139 mmol/L (136-145)
[2022-04-26] MEDS: Normal Saline Flush 10 ML SYR IVP ×2 (12:01→23:56)
[2022-04-26] MEDS: CEFEPIME 1 GM in Normal Saline 50 ML IVPB ×2 (12:01→23:55)
--- NOTE | 2022-04-26 13:28 | PGE_ITS ---
Date of Service Date of service: 04/26/22 Time of Service: 13:28 Assessment and Plan Assessment and plan (1) UTI (urinary tract infection): Start date: 04/24/22 Start time: 18:04 Status: Acute Assessment and plan: urine growing pseudomonas, refusing cipro stating it causes her nausea will change to cefepime day 2/3 based on sensitivities. (2) HTN (hypertension): Start date: 04/24/22 Status: Chronic Assessment and plan: with orthostatic hypotension now. hold amlodipine (3) Weakness: Start date: 04/24/22 Status: Acute Assessment and plan: Nutrition eval, PT eval (4) Toxic metabolic encephalopathy: Status: Resolved Assessment and plan: Due to UTI - treat underlying infection (5) Pre-syncope: Status: Acute Assessment and plan: In setting of orthostasis. Continue IVF initiated in the ED. Monitor orthostatic VS. hold amlodipine consider midodrine. (6) Orthostatic hypotension: Status: Acute Assessment and plan: Monitor orthostatic VS BID while hydrating IV. (7) DVT prophylaxis: Status: Acute Assessment and plan: SC heparin (8) Discharge planning issues: Start date: 04/24/22 Status: Acute Assessment and plan: will discharge to home with no services when medically stable. discussed with Dr lemons Subjective Subjective Patient reports: no new complaints, feels better, tolerating liquids well, tolerating a regular diet and afebrile; denies shortness of breath Interval history since last seen: no c/o, Exam Const General: no acute distress and ill appearing (younger than stated age) Nutritional Appearance: thin Orientation: alert, awake and oriented x3 [facility] Head: normal to inspection, normocephalic and atraumatic Mouth: oral mucosae normal Resp Effort & Inspection: normal respiratory effort Auscultation: clear to auscultation bilaterally Cardio Rate: regular rate Rhythm: regular rhythm GI Inspection: normal to inspection Palpation: soft Auscultation: normal bowel sounds Skin General skin exam: no rashes or lesions noted Neuro General: patient alert, patient awake and patient oriented x3 Cognition: normal cognition Speech: speech normal Motor: muscle tone normal throughout Extrem General: normal to inspection, full ROM and no pedal edema Psych Appearance: grossly normal Mental Status: mental status grossly normal Speech and Movement: speech and movement normal Mood: irritable mood Attitude: cooperative Thought Process: normal Thought Content: normal Objective Last Vital Signs Temp 37.3 C 04/26/22 11:25 Pulse 76 04/26/22 11:25 Resp 18 04/26/22 11:25 BP 111/69 04/26/22 11:25 Pulse Ox 98 04/26/22 11:25 Laboratory Results - last 24 hr 04/26/22 04/26/22 06:20 06:20 WBC 7.69 RBC 3.43 L Hgb 10.0 L Hct 29.4 L MCV 86 MCH 29.2 MCHC 34.0 RDW 14.1 Plt Count 260 MPV 8.9 Sodium 139 Potassium 3.3 L Chloride 109 H Carbon Dioxide 22.3 Anion Gap 7.7 BUN 13 Creatinine 1.3 H Estimated GFR/1.73 m2 39.82 Glucose 126 H Calcium 8.0 L
[2022-04-26] MEDS: Heparin 5,000 UNITS/ML VIAL 5000 UNITS SC ×2 (13:33→21:46)
[2022-04-26 15:29] LABS: Vitamin D 25 Total 62.7 ng/mL (30-100)
--- NOTE | 2022-04-26 15:45 | PT.INTREAT ---
Date of service: 04/26/22 Time of Service: 10:08 PT Notes Visit Reasons: Toxic Metabolic Encephalopathy UTI,Dehydration, Inpatient Physical Therapy Treatment Note [facility] Date: 04/26/2022 PRECAUTIONS: Activity as tolerated SUBJECTIVE: Sadia agreeable to participating in PT. She states that she was comfortable until this therapist walked in. She indicates that she does not know why she is on PT services or why she cannot get up independently. OBJECTIVE: PAIN: No c/o pain BED MOBILITY/TRANSFERS Sit-stand: I Stand-sit: I GAIT Assistive Device: FWW Weight bearing: Full Assist: SBA Distance: 250' Deviation: Slow pacing, path deviation to R, LOB x1 requiring Min A STAIRS: Up/down 3x4 and 2x6 using U rail and a step-to pattern with supervision ASSESSMENT: Patient tolerated session without complaint. She demonstrates occasional path deviation and LOB x1 requiring Min A with gait training with FWW support today. PLAN: Continue with general mobility training and global strengthening for improved safety with mobility. TREATMENT CODE/TIME: 20 minutes; 37553 (10:08)
--- NOTE | 2022-04-26 16:04 | CMPROGNOTE_ITS ---
- If Service Date Differs Date of service: 04/26/22 Time of Service: 16:04 Care Management Progress Note S/O: Sadia is being closely monitored. She is on Telemetry. She is on IV abx and cultures are pending. A: 76 year old female admitted on 04/24/22 for Toxic metabolic encephalopathy- UTI, dehydration P: Anticipate Sadia will discharge home with New [facility] services (if indicated) when medically ready per provider. Sadia will transport via private vehicle with family and follow up with community providers.
[2022-04-26] MEDS: Normal Saline 500 ML 30 ML IV (23:56)
[2022-04-27] VITALS (8 sets, daily range): BP systolic 88–134; BP diastolic 61–87; PULSE 68–90; RESP 14–18; TEMP 36.6–37.2; O2SAT 96–99
[2022-04-27] MEDS: Heparin 5,000 UNITS/ML VIAL 5000 UNITS SC ×2 (05:26→13:49)
[2022-04-27 06:51] LABS: Anion Gap 9.2 mmol/L (3-11); BUN 12 mg/dL (7-18); CO2 21.8 mmol/L (21.0-32.0); CREATININE 1.2 mg/dL (0.55-1.02); Calcium 8.1 mg/dL (8.5-10.1); Chloride 106 mmol/L (98-107); Estimated GFR 43.68 (mL/min/1.73m2); Glucose 104 mg/dL (74-106); Potassium 3.7 mmol/L (3.5-5.1); Sodium 137 mmol/L (136-145)
[2022-04-27] MEDS: Potassium Chloride 20 MEQ TABCR PO (08:17)
[2022-04-27] MEDS: Acetaminophen 325 MG TAB PO (08:17)
[2022-04-27] MEDS: Normal Saline Flush 10 ML SYR IVP ×2 (08:18→12:19)
--- NOTE | 2022-04-27 09:10 | PDOC.CMPRO ---
- If Service Date Differs Date of service: 04/27/22 Time of Service: 09:10 Care Management Progress Note S/O: Sadia was reclining in her chair when CM met with her. She is alert, oriented and easy to engage in conversation. She is being closely monitored and is on Telemetry. Her Orthostatic BP's continue to be low, CM discussed with MD and nursing. A: 76 year old female admitted on 04/24/22 for Toxic metabolic encephalopathy-UTI, dehydration P: Anticipate aSdia will discharge home with no new [facility] services when medically ready per provider. Sadia will transport via private vehicle with family and follow up with community providers.
--- NOTE | 2022-04-27 11:54 | W.NUTCONSULT ---
Date of service: 04/27/22 Time of Service: 11:54 Nutritional Consult ASSESSMENT: Met with Sadia today. She reports poor appetite in last month leading to 17 lbs weight loss. BMI indicates underweight status. Admitted with metabolic encephalopathy and dehydration. Following regular meal plan with 100% completion. Reports her appetite is great now that she feels better. Reports no food insecurity but unable to state who buys and prepares meals for her at home. At high nutritional risk. Estimated Needs: [id number] kcal, 50-60 g protein. > 50% meal completion will meet 100% macronutrient needs NUTRITIONAL DIAGNOSIS: moderate malnutrition in view of significant weight loss and low BMI INTERVENTION: continue to provide meal preferences and monitor po intake. Will supplement with ensure if PO less than 50% of meal MONITORING AND EVALUATION: weight, po intake, labs Time Spent in Nutritional Counseling and Treatment: 10
[2022-04-27] MEDS: CEFEPIME 1 GM in Normal Saline 50 ML IVPB (12:18)
--- NOTE | 2022-04-27 13:03 | PT.INDS ---
PT Notes Visit Reasons: Toxic Metabolic Encephalopathy UTI,Dehydration, Physical therapy discharge summary Referring Doctor: Tonia Hodgson MD PT Orders: PT CONSULT: Limited Ability Precautions: Fall. Standard. Patient Profile/Admitting Diagnosis:?Sadia is a 76 yo female that presented to the ER on 04/24/22 for weakness. She was found to have UTI and be dehydrated. She reports having a week of falls and was given FWW. PMHX: See EMR Social History/Home Situation: Lives with in 2 level home, has 2 SHAUN. States not having to go upstairs. She states otherwise independent at baseline. Had a series of falls recently and may be using FWW. Equipment Owned/DME: FWW Subjective: Patient refused further physical therapy and does not feel the need for Objective:? Mental Status: A&O x3 Pain: None reported ROM: Right Upper Extremity: Shoulder Flexion Moderate impairment. Shoulder abduction Moderate impairment. Elbow flexion WFL. Wrist flexion WFL. Opening and closing of hand WFL. Left Upper Extremity: Shoulder Flexion Moderate impairment. Shoulder abduction Moderate impairment. Elbow flexion WFL. Wrist flexion WFL. Opening and closing of hand WFL. Right Lower Extremity: Hip flexion WFL. Hip abduction WFL. Knee flexion WFL. Ankle dorsiflexion WFL. Ankle plantarflexion WFL. Left Lower Extremity: Hip flexion WFL. Hip abduction WFL. Knee flexion WFL. Ankle dorsiflexion WFL. Ankle plantarflexion WFL. Strength: Right Upper Extremity: Shoulder flexors 4/5. Shoulder abductors 4/5. Elbow flexors 4+/5. Elbow extensors 4/5. 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 Left Upper Extremity: Shoulder flexors 5/5. Shoulder abductors 5/5. Elbow flexors 4+/5. Elbow extensors 4/5. 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 Right Lower Extremity: Hip flexors 4/5. Hip abductors 4/5. Knee flexors 3/5. Knee extensors 5-/5. Ankle dorsiflexors 5/5. Ankle plantarflexors 5/5. Left Lower Extremity: Hip flexors 4/5. Hip abductors 4/5. Knee flexors 3/5. Knee extensors 5-/5. Ankle dorsiflexors 4+/5. Ankle plantarflexors 5/5. Sensation:?Intact as to pain and pressure on bilateral lower extremities. Bed Mobility/Transfers: Supine to sit: Mod A Sit to supine: Min A with legs Sit to stand: Min A Stand to sit: CGA Gait:?Ambulated to HOB with left side step using FWW, CGA. High need for verbal cues and she barely moved feet while scooting. Stairs:?Not assessed Balance:? Static Sitting: Poor Dynamic Sitting: Poor Static Standing: Poor Dynamic Standing: Poor S Informed Consent/Education:?Patient instructed in purpose of PT consult and plan of care. Assessment: Patient presents with clinical signs and symptoms consistent with current/admitting diagnoses that have resulted to mobility limitations, gait instability, generalized weakness, and impairment of motor control as demonstrated by the following impairment level findings: 1. Decreased strength to shoulder and hamstring major muscle groups 2. Impaired sitting/standing balance 3. Impaired activity tolerance Impairments are contributing to the following functional limitations: 1. Dependent bed mobility skills 2. Increased dependence with transfers 3. Inability to safely ambulate without assistive device and physical assistance 4. Increase completion time for mobility ADL performance 5. Increased fall risk 6. Inability to negotiate steps alone safely Patient is assessed as a High complexity based on the following: History: 76 year old female with impairment level findings, functional limitations, and past medical history as indicated above Examination: Demonstrable impairment in strength, balance, and mobility level with underlying impairments and functional limitations as documented above Presentation: Evolving Decision Making: High complexity Goals: Goals x1 week 1. Supine-Sit: independent 2. Sit-Supine: independent 3. Sit-Stand: independent 4. Stand-Sit: independent 5. Bed-Chair: independent 6. Chair-Bed: independent 7. Independent gait on level surface with use of least restrictive device for at least 300 feet without report of pain nor dyspnea 8. Independent stair negotiation while holding onto bilateral rails for at least 10 steps without report of pain nor dyspnea 9. Independent with home exercise program 10. Good static and dynamic standing balance/tolerance Plan of Care/Treatment Plan: Patient refused further physical therapy. DC from PT Discharge Plan: Treatment sessions were 04 25- 13 This document serves as a summary care note. No PT services were provided on this day.
--- NOTE | 2022-04-27 13:15 | PT.INNT ---
Date of service: 04/27/22 Time of Service: 13:15 PT Notes Visit Reasons: Toxic Metabolic Encephalopathy UTI,Dehydration, 04/27/2022 Patient states that she does not need PT services and requests to have PT order discharged for the remainder of her hospitalization. She reports that she is at her baseline level of function. Per discussion with primary nurse, patient has been cleared for bed mobility, transfers and short-distance ambulation with FWW at this time. Care team notified of patient's request.
--- NOTE | 2022-04-27 15:09 | W.PM.PROGNOT ---
Date of Service Date of service: 04/27/22 Time of Service: 15:09 Assessment and Plan Assessment and plan (1) UTI (urinary tract infection): Start date: 04/24/22 Start time: 18:04 Status: Acute Assessment and plan: cefepime day 3/3 based on sensitivities; recheck urine (2) HTN (hypertension): Start date: 04/24/22 Status: Chronic Assessment and plan: Check orthostatic VS hold amlodipine (3) Weakness: Start date: 04/24/22 Status: Acute Assessment and plan: Nutrition eval, PT eval (4) Toxic metabolic encephalopathy: Status: Resolved Assessment and plan: Due to UTI - treating underlying infection (5) Pre-syncope: Status: Acute Assessment and plan: In setting of orthostasis. Continue IVF initiated in the ED. Monitor orthostatic VS. hold amlodipine consider midodrine. (6) Orthostatic hypotension: Status: Acute Assessment and plan: Monitor orthostatic VS BID while hydrating IV. (7) DVT prophylaxis: Status: Acute Assessment and plan: SC heparin (8) Discharge planning issues: Start date: 04/24/22 Status: Acute Assessment and plan: will discharge to home with no services when medically stable. discussed with Dr lemons Subjective Subjective Patient reports: no new complaints Exam Const General: no acute distress and ill appearing (younger than stated age) Nutritional Appearance: thin Orientation: alert, awake and oriented x3 HENMT Head: normal to inspection, normocephalic and atraumatic Mouth: oral mucosae normal Resp Effort & Inspection: normal respiratory effort Auscultation: clear to auscultation bilaterally Cardio Rate: regular rate Rhythm: regular rhythm GI Inspection: normal to inspection Palpation: soft Auscultation: normal bowel sounds Skin General skin exam: no rashes or lesions noted Neuro General: patient alert, patient awake and patient oriented x3 Cognition: normal cognition Speech: speech normal Motor: muscle tone normal throughout Extrem General: normal to inspection, full ROM and no pedal edema Psych Appearance: grossly normal Mental Status: mental status grossly normal Speech and Movement: speech and movement normal Mood: irritable mood Attitude: cooperative Thought Process: normal Thought Content: normal Objective Last Vital Signs Temp 37.2 C 04/27/22 08:17 Pulse 90 04/27/22 09:29 Resp 14 04/27/22 08:13 BP 88/61 L 04/27/22 09:29 Pulse Ox 99 04/27/22 08:13 Laboratory Results - last 24 hr 04/25/22 04/27/22 05:15 06:03 Sodium 137 Potassium 3.7 Chloride 106 Carbon Dioxide 21.8 Anion Gap 9.2 BUN 12 Creatinine 1.2 H Estimated GFR/1.73 m2 43.68 Glucose 104 Calcium 8.1 L 25-OH Vitamin D Total 62.7
--- NOTE | 2022-04-27 15:16 | CHAPLAIN ---
Sadia was up in the recliner, leaning a bit to one side. When I asked if she'd like help to straighten out, she said she was fine, and trying to nap. I explained my role and offered support.
--- NOTE | 2022-04-27 16:22 | W.PM.DS.N ---
Date of service: 04/27/22 Time of Service: 16:22 DS: Diagnosis Discharge Diagnosis (1) UTI (urinary tract infection): Status: Acute (2) HTN (hypertension): Status: Chronic (3) Weakness: Status: Acute (4) Toxic metabolic encephalopathy: Status: Resolved (5) Pre-syncope: Status: Acute (6) Orthostatic hypotension: Status: Acute (7) DVT prophylaxis: Status: Acute (8) Discharge planning issues: Status: Acute Discharge Plan Disposition Patient Disposition: HOME Condition: Serious Discharge Details Reason For Visit: Toxic Metabolic Encephalopathy UTI,Dehydration, Admit Date/Time: 04/24/22 13:48 Admit Provider: Tonia Hodgson Attending Provider: Tonia Hodgson Primary Care Provider: Sinan Varma Hospital Course Hospital Course: This 76-year-old female patient with past medical history of hypertension presented to the emergency department with report of progressive weakness with urinary tract infection despite recurrent antibiotics.? She told the ED provider that she had a fall approximately a month ago and that is when her symptoms worsened.? She also told them that she subsequently went to her doctor with a small tick bite with some redness around it and was started on doxycycline for approximately 14 days, and she finished it several weeks ago.? She then developed some flank pain and was started on antibiotics for urinary tract infection, ciprofloxacin which she started on the day of admission 04/25/2022.? She refused to take cipro nausea. She did not want to be admitted to the hospital and she does not want to stay here. She is no longer orthostatic, she has completed her antibiotic course, vital signs are stable. Labs are all normal. She reports a 17 pound weight loss in 1 month and should be followed w PCP for further work up to determine cause and treatment. Reviewed with Dr Whitaker Home Meds and New Rx's Prescriptions: Continued potassium chloride 20 mEq tablet extended release 20 meq PO DAILY amlodipine 10 mg tablet 10 mg PO DAILY Label Comments: TAKE ONE TABLET BY MOUTH EVERY DAY Discontinued sulfamethoxazole-trimethoprim [Bactrim DS] 800-160 mg tablet 1 tab PO BID Label Comments: Take 1 tablet by mouth twice a day tramadol 50 mg tablet 50 tab PO 2XD PRN Label Comments: TAKE 1 TABLET BY MOUTH THREE TIMES A DAY NEEDED FOR PAIN ciprofloxacin HCl [Cipro] 250 mg tablet 250 mg PO BID Label Comments: Take 1 tablet by mouth twice a day cyclobenzaprine 10 mg tablet 10 mg PO TID PRN Label Comments: TAKE ONE TABLET BY MOUTH THREE TIMES A DAY No Action Multi For Her 18 mg iron-600 mcg-40 mcg Capsule 1 tab-cap PO DAILY Discharge Instructions Instructions: Urinary Tract Infection in Women (DC) Stand Alone Forms: Nursing Discharge Form Referrals: Sinan Varma [Primary Care Provider] - 05/10/22 11:00 am Activity:: Activity as Tolerated Equipment/Supplies:: No Equipment Needed Diet:: As Tolerated Discharge Orders Discharge Orders: Discharge Order (Routine); Ordered 04/27/22 Ordered By: Lisa Ha DS: Summary Time Spent with Patient providing and/or coordinating discharge services: Less than 30 minutes Status at Discharge Functional status at discharge: independent ambulation Overall status at discharge: patient is progressing back to baseline Mental Status: mental status grossly normal Speech and Movement: speech and movement normal Mood: irritable mood Affect: normal affect Exam Const General: no acute distress and ill appearing (younger than stated age) Nutritional Appearance: thin Orientation: alert, awake and oriented x3 HENMT Head: normal to inspection, normocephalic and atraumatic Mouth: oral mucosae normal Resp Effort & Inspection: normal respiratory effort Auscultation: clear to auscultation bilaterally Cardio Rate: regular rate Rhythm: regular rhythm GI Inspection: normal to inspection Palpation: soft Auscultation: normal bowel sounds Skin General skin exam: no rashes or lesions noted Neuro General: patient alert, patient awake and patient oriented x3 Cognition: normal cognition Speech: speech normal Motor: muscle tone normal throughout Extrem General: normal to inspection, full ROM and no pedal edema Psych Appearance: grossly normal Mental Status: mental status grossly normal Speech and Movement: speech and movement normal Mood: irritable mood Affect: normal affect Attitude: cooperative Thought Process: normal Thought Content: normal DS: Data Vitals/I&O Vitals and I&O: Vital Signs Temperature 36.9 C 04/27/22 15:24 Temperature Source Tympanic 04/27/22 15:24 Pulse 75 04/27/22 15:24 Pulse Rhythm Regular 04/27/22 07:45 Respiratory Rate 18 04/27/22 15:24 Respiratory Effort Non-Labored 04/27/22 07:45 Respiratory Depth Normal 04/27/22 07:45 Respiratory Pattern Normal 04/27/22 07:45 Blood Pressure 104/73 04/27/22 15:24 Pulse Oximetry 98 04/27/22 15:24 Oxygen Delivery Method Room Air 04/27/22 15:24 Oxygen Flow Rate 0 04/27/22 15:24 Pain Level 0 04/27/22 15:24 Intake & Output 04/26/22 04/27/22 04/27/22 23:59 11:59 23:59 Intake Total 711.667 / 2081.667 67 / 357 290 / 357 Output Total 300 / 300 250 / 850 600 / 850 Balance 411.667 / 1781.667 -183 / -493 -310 / -493 Weight 45 kg Intake: IV 411.667 / 1411.667 67 / 117 50 / 117 Oral 300 / 670 240 / 240 Output: Urine 300 / 300 250 / 850 600 / 850 Other: Urine Color Yellow Pale Yellow Yellow Urine Appearance Clear Clear Urine Odor Normal Comment urine and bm in toliet from previous/ 350 urine measured in hat Stool Size Small Stool Characteristics Soft Formed Voiding Methods Toilet Toilet Toilet Data Completed and Pending Labs on day of discharge: Labs from last 24 hours 04/27/22 06:03 Sodium 137 Potassium 3.7 Chloride 106 Carbon Dioxide 21.8 Anion Gap 9.2 BUN 12 Creatinine 1.2 H Estimated GFR/1.73 m2 43.68 Glucose 104 Calcium 8.1 L Preliminary micro results at discharge 04/24/22 12:50 Blood Culture - Preliminary Blood NO GROWTH 72 HOURS 04/24/22 12:23 Blood Culture - Preliminary Blood NO GROWTH 72 HOURS PFSH All Active Problems Acute metabolic encephalopathy (Acute) Acute dehydration (Acute) Acute renal insufficiency (Acute) HTN (hypertension) (Chronic) DVT prophylaxis (Acute) Orthostatic hypotension (Acute) Pre-syncope (Acute) Weakness (Acute) Discharge planning issues (Acute) UTI (urinary tract infection) (Acute) Lumbar compression fracture (Acute) Surgical History H/O section Social History Smoking/Tobacco Use Status: Never Smoking risk assessment performed?: Yes Alcohol Intake: current Alcohol Intake frequency: 3 or more drinks per day Alcohol type: beer Drug use: Never Substance use type: does not use Do you feel safe at home: Yes Do you feel safe in your relationship?: Yes
[2022-04-27 16:40] LABS: Bilirubin Negative (Negative); Blood Negative (Negative); Clarity Clear (Clear); Glucose Negative (Negative); Ketones Negative (Negative); Leukocyte Esterase Small (Negative); Nitrite Negative (Negative); Specific Gravity 1.015 (1.005-1.025); Urobilinogen 0.2 EU/dL (Up TO 0.2)
[2022-04-27 16:50] LABS: Bacteria Negative HPF (Negative); C & S Indicated? No/Sq. Contamination; Crystals Negative HPF (Negative); Epithelial Cells Many HPF (Negative); Mucus Negative (Negative)
== END 2022-04-27 17:53 | disposition home or self-care (01) | DRG 689 ==
LOC: ER 14:11 → MS 17:26
PROVIDERS: Nurse Practitioner Acute Care; Nurse Practitioner Family; Admitting Provider Internal Medicine; Emergency Provider Physician Assistant; PCP Physician Assistant; Visit Provider Internal Medicine
DX: N39.0 Urinary tract infection, site not specified (principal); G92.8 Other toxic encephalopathy; Z68.1 Body mass index [BMI] 19.9 or less, adult; R53.1 Weakness; I10 Essential (primary) hypertension; B96.5 Pseudomonas (aeruginosa) (mallei) (pseudomallei) as the cause of diseases classified elsewhere; R63.4 Abnormal weight loss
CPT/HCPCS: 36410; 36415; 80048; 80053; 82306; 82550; 82805; 84145; 85027; 87040; 87635; 93005; 96361; 96365; 96366; 96367; 96372; 96375; 97163; 97530; 99291; 70450; 74176; 81003; 81015; 83605; 83735; 84484; 85025; 86140; 87086; 93010; 99217; 99219; 99222; 99226; 99233; 99238; G0378; J0744; J1644; J2405; J3480

== ENCOUNTER 2022-05-10 13:03 | Outpatient (REF) | payer MEDICARE, SELFPAY ==
[2022-05-10 14:45] LABS: Anion Gap 10.2 mmol/L (3-11); BUN 15 mg/dL (7-18); CO2 20.8 mmol/L (21.0-32.0); CREATININE 1.5 mg/dL (0.55-1.02); Calcium 8.1 mg/dL (8.5-10.1); Chloride 99 mmol/L (98-107); Estimated GFR 33.76 (mL/min/1.73m2); Glucose 101 mg/dL (74-106); Potassium 3.7 mmol/L (3.5-5.1); Sodium 130 mmol/L (136-145)
[2022-05-10 16:33] LABS: Bilirubin Negative (Negative); Blood Trace-intact (Negative); Clarity Cloudy (Clear); Glucose Negative (Negative); Ketones Negative (Negative); Leukocyte Esterase Large (Negative); Nitrite Negative (Negative); Specific Gravity 1.015 (1.005-1.025); Urobilinogen 0.2 EU/dL (Up TO 0.2)
[2022-05-10 17:26] LABS: C & S Indicated? C&S Done As Ordered; Epithelial Cells Many HPF (Negative)
[2022-05-18 12:49] LABS: West Nile Virus Ab, IgM Negative (Negative)
== END 2022-05-10 13:04 | disposition home or self-care (01) ==
LOC: NCHCN 13:03
PROVIDERS: PCP Physician Assistant; Visit Provider Physician Assistant
DX: N39.0 Urinary tract infection, site not specified (principal); R53.1 Weakness
CPT/HCPCS: 80048; 81003; 81015; 86788; 86789; 87086

== ENCOUNTER 2022-06-22 21:10 | Outpatient (REF) | payer MEDICARE, SELFPAY ==
[2022-06-22 20:03] LABS: Anion Gap 11.2 mmol/L (3-11); BUN 21 mg/dL (7-18); CO2 22.8 mmol/L (21.0-32.0); CREATININE 1.8 mg/dL (0.55-1.02); Calcium 8.7 mg/dL (8.5-10.1); Chloride 101 mmol/L (98-107); Estimated GFR 27.36 (mL/min/1.73m2); Glucose 108 mg/dL (74-106); Potassium 3.9 mmol/L (3.5-5.1); Sodium 135 mmol/L (136-145)
== END 2022-06-22 21:11 | disposition home or self-care (01) ==
LOC: NCHCN 21:10
PROVIDERS: PCP Physician Assistant; Visit Provider Physician Assistant
DX: E87.8 Other disorders of electrolyte and fluid balance, not elsewhere classified (principal)
CPT/HCPCS: 80048

== ENCOUNTER 2022-09-21 16:38 | Outpatient (REF) | payer MEDICARE, SELFPAY ==
[2022-09-21 16:51] LABS: HCT 31.7 % (36.0-46.0); HGB 10.5 g/dL (11.2-15.7); MCH 27.6 pg (27.0-33.0); MCHC 33.1 % (32.0-36.0); MCV 83 fL (80-95); MPV 9.4 fL (8.0-11.0); Platelet Count 372 10^3/uL (130-400); RDW 14.6 % (11.7-14.6); RDW-SD 44.9 fL; WBC 10.87 10^3/uL (4.4-10.8)
[2022-09-21 17:18] LABS: ALT 10 U/L (14-59); AST 16 U/L (15-37); Albumin 3.4 g/dL (3.4-5.0); Alkaline Phosphatase 88 U/L (46-116); Anion Gap 12.6 mmol/L (3-11); BUN 25 mg/dL (7-18); Bilirubin, Total 0.4 mg/dL (0.2-1.0); CO2 22.4 mmol/L (21.0-32.0); CREATININE 1.8 mg/dL (0.55-1.02); Chloride 101 mmol/L (98-107); Estimated GFR 28.66 (mL/min/1.73m2); Glucose 72 mg/dL (74-106); Potassium 3.5 mmol/L (3.5-5.1); Sodium 136 mmol/L (136-145); Total Protein 8.2 g/dL (6.4-8.2)
== END 2022-09-21 16:39 | disposition home or self-care (01) ==
LOC: NCHCN 16:38
PROVIDERS: PCP Physician Assistant; Visit Provider Physician Assistant
DX: D64.9 Anemia, unspecified (principal); E87.8 Other disorders of electrolyte and fluid balance, not elsewhere classified
CPT/HCPCS: 80053; 85027

== ENCOUNTER 2022-09-29 18:51 | Outpatient (REF) | payer MEDICARE, SELFPAY ==
[2022-09-29 15:50] LABS: Creatinine,Urine 32.22 mg/dL
[2022-09-29 15:51] LABS: Creatinine,24hr Ur 0.61 g/24hr (0.60-1.80); Total Volume 1900 ml
[2022-09-30 09:15] LABS: Calcium Urine 24 hr 133 mg/24hrs (100-300); Timed Urine Volume 1900 mL
[2022-09-30 09:16] LABS: Phosphorus Urine 17.2 mg/dL (See Note); Phosphorus Urine 24hr 0.3 g/24hrs (0.4-1.3); Timed Urine Volume 1900 mL
[2022-09-30 16:25] LABS: Citrate Excretion, 24hr, U <38 mg/24 h; Urine Volume 1900 mL
[2022-10-02 15:44] LABS: Oxalate, U 0.25 mmol/24 h; Urine Volume 1900 mL
== END 2022-09-29 18:52 | disposition home or self-care (01) ==
LOC: NCHCN 18:51
PROVIDERS: PCP Physician Assistant; Visit Provider Physician Assistant
DX: N29 Other disorders of kidney and ureter in diseases classified elsewhere (principal)
CPT/HCPCS: 82507; 81050; 82340; 82570; 83945; 84105

== ENCOUNTER 2022-11-12 16:21 | Outpatient (REF) | payer MEDICARE, SELFPAY ==
[2022-11-12 15:10] LABS: HCT 31.5 % (36.0-46.0); HGB 10.3 g/dL (11.2-15.7); MCH 27.5 pg (27.0-33.0); MCHC 32.7 % (32.0-36.0); MCV 84 fL (80-95); MPV 9.1 fL (8.0-11.0); Platelet Count 325 10^3/uL (130-400); RBC 3.75 10^6/uL (3.93-5.22); RDW 14.6 % (11.7-14.6); RDW-SD 45.1 fL; Reticulocyte 0.6 % (0.5-2.4); WBC 10.29 10^3/uL (4.4-10.8)
[2022-11-12 16:14] LABS: Anion Gap 6.8 mmol/L (3-11); BUN 20 mg/dL (7-18); CO2 29.2 mmol/L (21.0-32.0); CREATININE 1.5 mg/dL (0.55-1.02); Calcium 8.8 mg/dL (8.5-10.1); Chloride 97 mmol/L (98-107); Estimated GFR 35.67 (mL/min/1.73m2); Ferritin 17 ng/mL (8-252); Glucose 100 mg/dL (74-106); Potassium 3.7 mmol/L (3.5-5.1); Sodium 133 mmol/L (136-145)
[2022-11-12 23:05] LABS: Parathyroid Hormone,Intact 24 pg/mL (19-88)
== END 2022-11-12 16:22 | disposition home or self-care (01) ==
LOC: NCHCN 16:21
PROVIDERS: PCP Physician Assistant; Visit Provider Physician Assistant
DX: D64.9 Anemia, unspecified (principal); N28.9 Disorder of kidney and ureter, unspecified; I10 Essential (primary) hypertension; R53.83 Other fatigue
CPT/HCPCS: 80048; 85027; 82728; 83970; 85045

== ENCOUNTER 2023-01-13 01:58 | Outpatient (CLI) | payer MEDICARE, SELFPAY ==
--- NOTE | 2023-01-13 10:30 | DI.US_ITS ---
APPROVED REPORT EXAM: Comprehensive 2D, Doppler, and color-flow Echocardiogram Patient Location: Out-Patient Computer Equipment Installer: Monik Gan RDCS (AE) Indications: New heart murmur Other Information Study Quality: Fair. Technically limited study due to body habitus. Conclusion Normal left ventricular wall thickness and chamber size. Estimated ejection fraction is 55 to 60%. Wall motion is normal The right ventricle is not well visualized Both atria are normal in size Aortic valve is sclerotic and trileaflet without stenosis or regurgitation Mild mitral annular calcification, trace mitral regurgitation Estimated right ventricular systolic pressure is 28 mmHg Dilated ascending aorta measuring 4.08 cm Wall motion Left Ventricle The left ventricle is normal size. The left ventricular systolic function is normal. The left ventric ular ejection fraction is within the normal range. There is normal left ventricular wall thickness. T here is normal LV segmental wall motion. There is no ventricular septal defect visualized. LVEF is 58 %. Right Ventricle Right ventricle is not well visualized. Right ventricular systolic function could not be assessed. Th e RVSP is 28.5 mmHg. Atria The left atrium size is normal. The right atrium size is normal. The interatrial septum is intact wit h no evidence for an atrial septal defect. Aortic Valve The Aortic valve is sclerotic. Aortic valve is trileaflet. There is no aortic valvular stenosis. No a ortic regurgitation is present. Mitral Valve Mild mitral annular calcification. No evidence of mitral valve stenosis. Trace mitral regurgitation. Tricuspid Valve The tricuspid valve is normal in structure. There is no tricuspid valve stenosis. Trace to mild tric uspid regurgitation. Pulmonic Valve The pulmonary valve is normal in structure. There is no pulmonic valvular stenosis. Trace pulmonic re gurgitation. Great Vessels The aortic root is normal in size. The ascending aorta is moderately dilated. Aortic arch is normal i n caliber. IVC is normal in size and collapses >50% with inspiration. Pericardium There is no pericardial effusion. 2D Dimensions IVSD d PLAX 0.94 cm F: 0.6-1.0 LV Vol A2C d MOD 52.5 mL LVPW d PLAX 0.91 cm F: 0.6 - 1.0 LV Vol A4C d MOD 61.2 mL LVID d PLAX 3.33 cm F: 3.8 - 5.2 LV EF A4C MOD 57.4 % LVDs 2.30 cm F: 2.2 - 3.5 LV EF A2C MOD 58.0 % Ao Root d 2.88 cm F: 2.7 - 3.3 LV EF Biplane MOD 58.8 % Ao Asc Diam d 4.08 cm F: 2.3 - 3.1 SV 35.54 mL LV EF Teichholz 58.2 % SV Index 24.45 mL/m2 LVEF (Ibrahim's) 58.81 % F: 54 - 74 LV Volume 51.00 mL F: 46 - 106 LV Volume Index 35.17 mL/m2 F: 29 - 61 LV Vol Biplane MOD 60.4 mL FS 29.85 % M-Mode TAPSE 1.79 cm (M/F) >1.7 LV Diastology MV E' medial 0.048 (>0.07 m/s) E/A Ratio 0.7 LV E/e MED 13.85 (<14) MV E Vmax 0.67 (0.4-1.3 m/s) MV E' lateral 0.049 (>0.1 m/s) MV A Vmax 1.00 (0.4-1.3 m/s) LV E/e LAT 13.65 (<14) MV E/A Ratio 0.64 MV E/E' medial 13.90 MV E/E' lateral 13.67 Aortic Valve LVOT Area 2.85 cm2 AoV Area Vmax 2.27 cm2 LVOT Vmax 1.13 m/s AoV Area/ BSA (Vmax) 1.56 cm2/m2 LVOT Mean Boni. 0.73 m/s ARLENE Mean Boni. 2.24 cm2 LVOT Peak Grad 5.1 mmHg ARLENE Mean Boni. Index 1.54 cm2/m2 LVOT Mean Grad 2.5 mmHg LVOT VTI 0.257 m LVOT Diam s 1.90 cm AoV Vmax 1.42 m/s Velocity Ratio 0.80 AoV Mean Boni. 0.93 m/s AoV Peak Grad 8.0 mmHg LVOT SV 73.44 mL AoV Mean Grad 3.9 mmHg AoV VTI 0.316 m AoV Area VTI 2.33 cm2 AoV Area/ BSA (VTI) 1.60 cm/m2 Mitral Valve MV DT 265 (160-240 msec) MV PHT 77 msec MV Area PHT 2.86 cm2 MV VTI 0.351 m MV Area VTI 2.09 (4.0-6.0 cm2) Pulmonary Valve PV Vmax 0.92 (0.5-1.5 m/s) RVOT Peak Gr. 2.36 mmHg PV Peak Grad 3.4 mmHg RVOT Mean Gr. 1.20 mmHg PV Mean Grad 1.9 mmHg RVOT VTI 0.152 m PV VTI 0.211 m RVOT Vmax 0.77 m/s Tricuspid Valve TR Peak Grad 25.5 mmHg TR Vmax 2.53 m/s RA Pressure 3.00 mmHg RVSP (TR) 28.5 mmHg
== END 2023-01-13 02:18 ==
LOC: DI 01:59
PROVIDERS: PCP Physician Assistant; Visit Provider Physician Assistant
DX: R01.1 Cardiac murmur, unspecified (principal)
CPT/HCPCS: 93306

== ENCOUNTER 2023-03-02 17:32 | Outpatient (REF) | payer MEDICARE, SELFPAY ==
[2023-03-02 16:22] LABS: Anion Gap 9.5 mmol/L (3-11); BUN 19 mg/dL (7-18); CO2 24.5 mmol/L (21.0-32.0); CREATININE 1.5 mg/dL (0.55-1.02); Calcium 9.2 mg/dL (8.5-10.1); Chloride 105 mmol/L (98-107); Estimated GFR 35.67 (mL/min/1.73m2); Glucose 96 mg/dL (74-106); Potassium 4.1 mmol/L (3.5-5.1); Sodium 139 mmol/L (136-145)
== END 2023-03-02 17:33 | disposition home or self-care (01) ==
LOC: NCHCN 17:32
PROVIDERS: PCP Physician Assistant; Visit Provider Physician Assistant
DX: N28.9 Disorder of kidney and ureter, unspecified (principal)
CPT/HCPCS: 80048

== ENCOUNTER → 2023-07-22 00:42 | Outpatient (CLI) | payer MEDICARE, SELFPAY ==
--- NOTE | 2023-07-22 | DI.US_ITS ---
Exam(s) US ABDOMEN LIMITED EXAM: US ABDOMEN LIMITED CLINICAL HISTORY: ABD PAIN R10.9 R/O CHOLECYSTITIS TECHNIQUE: Ultrasound abdomen performed using standard protocol. COMPARISON: CT CT ABDOMEN PELVIS WO from 04/24/2022 FINDINGS: PANCREAS: Normal where visualized. LIVER: Normal. Hepatopedal flow in the Portal Vein. The liver measures in 15.1 cm length. GALLBLADDER: No evidence of cholelithiasis. The gallbladder is mildly contracted. The gallbladder wa ll measures 4 mm. No pericholecystic fluid identified. BILIARY SYSTEM: Common bile duct measures 8 mm. No intrahepatic biliary ductal dilation. PEDRAZA'S SIGN: Negative. RIGHT KIDNEY: Kidney is normal in size. Echogenic medullary region is again seen consistent with the patient's nephrocalcinosis. No evidence of hydronephrosis. No renal mass or cyst identified. ASCITES: None seen. ABDOMINAL AORTA AND IVC: Visualized portions normal caliber. IMPRESSION: Common duct at 8 mm. No cholelithiasis is seen. No pericholecystic fluid is present. The common du ct is at the upper limits of normal in size. No sonographic findings to suggest acute cholecystitis. If further evaluation is warranted an MRCP/abdominal MRI is recommended for further evaluation. DATA REPOSITORY:
== END ==
PROVIDERS: PCP Physician Assistant; Visit Provider Physician Assistant
DX: R10.9 Unspecified abdominal pain (principal)
CPT/HCPCS: 76705

== ENCOUNTER → 2024-05-30 10:18 | Outpatient (BNVA) | payer MEDICARE, SELFPAY | PROVIDERS: PCP Physician Assistant; Referring Provider Physician Assistant; Visit Provider Podiatrist | DX: L60.0 Ingrowing nail (principal); M84.375A Stress fracture, left foot, initial encounter for fracture; M76.72 Peroneal tendinitis, left leg; M79.675 Pain in left toe(s); M79.672 Pain in left foot | CPT/HCPCS: 99214 ==

== ENCOUNTER → 2024-05-30 11:28 | Outpatient (CLI) | payer MEDICARE, SELFPAY ==
--- NOTE | 2024-05-30 11:57 | DI.RAD_ITS ---
Exam(s) XR FOOT LT COMPLETE XR HEEL LT OS CALCIS EXAM: XR FOOT LT COMPLETE CLINICAL HISTORY: Pain in left heel M84.375A STRESS FX LEFT FOOT. TECHNIQUE: 2D digital imaging was performed. Three views. COMPARISON: CR XR HEEL LT OS CALCIS from 05/30/2024 FINDINGS: BONES: No acute fracture is present. No bony destructive lesion is seen. Heel spurs. JOINTS: No dislocation present. Mild degenerative changes . Hammertoe deformities of the 2nd and 3rd toes. Flattening of the plantar arch. SOFT TISSUE: Mild vascular calcifications. IMPRESSION: No evidence of stress fracture. Pes planus. Mild degenerative changes. DATA REPOSITORY: RADIATION DOSE DELIVERED:
== END ==
PROVIDERS: PCP Physician Assistant; Visit Provider Podiatrist
DX: M79.672 Pain in left foot (principal); M77.32 Calcaneal spur, left foot; M20.42 Other hammer toe(s) (acquired), left foot; M21.42 Flat foot [pes planus] (acquired), left foot; M84.375A Stress fracture, left foot, initial encounter for fracture
CPT/HCPCS: 73630; 73650

== ENCOUNTER 2024-06-01 14:56 | Outpatient (REF) | payer MEDICARE, SELFPAY ==
[2024-06-01 16:14] LABS: Anion Gap 14.7 mmol/L (3-11); BUN 27 mg/dL (7-18); CO2 17.3 mmol/L (21.0-32.0); CREATININE 2.3 mg/dL (0.55-1.02); Calcium 8.7 mg/dL (8.5-10.1); Chloride 101 mmol/L (98-107); Estimated GFR 21.22 (mL/min/1.73m2); Glucose 102 mg/dL (74-106); HCT 32.9 % (36.0-46.0); MCH 28.2 pg (27.0-33.0); MCHC 33.4 % (32.0-36.0); MCV 84 fL (80-95); MPV 10.1 fL (8.0-11.0); Platelet Count 315 10^3/uL (130-400); Potassium 3.5 mmol/L (3.5-5.1); RDW 14.1 % (11.7-14.6); RDW-SD 43.4 fL; Sodium 133 mmol/L (136-145); WBC 8.91 10^3/uL (4.4-10.8)
== END 2024-06-01 14:57 | disposition home or self-care (01) ==
LOC: NCHCN 14:56
PROVIDERS: PCP Physician Assistant; Visit Provider Physician Assistant
DX: N28.9 Disorder of kidney and ureter, unspecified (principal)
CPT/HCPCS: 80048; 85027

== ENCOUNTER → 2024-06-12 02:36 | Outpatient (CLI) | payer MEDICARE, SELFPAY ==
--- NOTE | 2024-06-12 | DI.US_ITS ---
Exam(s) US RENAL EXAM: US RENAL CLINICAL HISTORY: RENAL INSUFFICIENCY,N28.9,MEDULLARY NEPHROCALCINOSIS. TECHNIQUE: Patel scale, color and spectral Doppler were used. COMPARISON: CT CT ABDOMEN PELVIS WO from 04/24/2022 US US ABDOMEN LIMITED from 07/22/2023 FINDINGS: Right kidney: 9.2cm Echogenicity: Normal Hydronephrosis: No Cyst or mass: No Nephrolithiasis: Medullary calcifications again noted throughout. Left kidney: 9.1cm Echogenicity: Normal Hydronephrosis: No Cyst or mass: No Nephrolithiasis: No medullary calcifications again noted throughout. Bladder:Normal. Prevoid vol:306 cc Postvoid vol:215 cc IMPRESSION: Medullary nephrocalcinosis. No evidence of hydronephrosis. Elevated postvoid residual bladder volume. DATA REPOSITORY:
--- OUTSIDE RECORDS SUMMARY | 2024-06-12 02:38 | XMS_ITS | Encounter Summary ---
Author Organization [facility] Address [address] [place] [address] Care Team Providers [employer] Professional Name Role Phone Unavailable Primary Care Provider Unavailabl e Encounter Details Date Type Department Care Team (Late st Contact Info) Description 11/12/2022 Lab Requisition [facility] Pathology & Laboratory Medicine - [facility] [address] [place] [address] Outr Resulting Lab, Provider Social History Tobacco Use Types Packs/Day Years Used Date Smoking Tobacco: Never Assessed Sex and Gender Information Value Date Recorded Sex Assigned at Not on file Gender Identity Not on file Sexual Orientation Not on file documented as of this encounter Plan of Treatment Not on file documented as of this encounter Procedures Procedure Name Priority Date/Time Associated Diagnosis Comments PTH INTACT Routine 11/12/2022 11:58 EST documented in this encounter Results * PTH INTACT (11/12/2022 11:58 EST) Intact PTH 24 19 - 88 pg/mL 11/12/2022 23:00 EST [facility] Blood VENOUS BLOOD / Unknown 11/12/2022 11:58 EST 11/12/2022 21:09 EST Provider Outr Resulting Lab CHEMISTRY & BLOOD GAS ORDERABLES [facility] [address] [place] [address] documented in this encounter Visit Diagnoses Not on filedocumented in this encounter
--- OUTSIDE RECORDS SUMMARY | 2024-06-12 02:38 | XMS_ITS | Continuity of Care Document ---
Author Organization [facility] Address [place] [address] Assessment No assessment recorded. Plan of Treatment Reminders Order Date Submit Date Provider Last Modified By Organization Details Last Modified Time Details Appointments Follow Up 30 2024 10:00A M SINAN LYONS Not available Not available Not available Lab None recorded . Referral None recorded . Procedures None recorded . Surgeries None recorded . Imaging None recorded . Medication Orders None recorded . Patient TargetsNo targets recorded. Patient InstructionsNo instructions recorded. 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 Stre ss fracture of left calcaneus Referring Physician: Sinan Lyons [facility] Latrice, Encounter Date: 06/07/2024 Results Created Date Observation Date Name Description Value Unit Range Abnormal Flag LastModifiedBy Organization Detail LastModifiedTime 05/31/20 24 05/30/2024 x-ray imagi ng repor t Patiphyllis t Name: Opal Araujo Unit #: [id number] Loc: DI Orderi ng Provid er: Nicole Bai DPM Accoun t #: [id number] Status : REG CLI Primar y Care Provid er: Martha De Oliveira Date of Exam: Sex: F Admiss ion Date: : 1944 Age: 78 Exam(s ) XR FOOT LT COMPLE TE XR HEEL LT OS CALCIS EXAM: XR FOOT LT COMPLE TE CLINIC AL HISTOR Y: Pain in left heel M84.37 5A STRESS FX LEFT FOOT. TECHNI QUE: 2D digita l imagin g was perfor med. Three views. COMPAR CECILE: CR XR HEEL LT OS CALCIS from 2023 FINDIN GS: BONES: No acute fractu re is presen t. No bony destru ctive lesion is seen. Heel spurs. JOINTS : No disloc ation presen t. Mild degene rative change s . Hammer toe deform ities of the 2nd and 3rd toes. Flatte frances of the planta r arch. SOFT TISSUE : Mild vascul ar calcif icatio ns. IMPRES ALINA: No eviden ce of stress fractu re. Pes planus . Mild degene rative change s. DATA REPOSI TORY: RADIAT ION DOSE DELIVE RED: Ordere d By: Nicole Bai DPM CC: ------ ------ ------ ------ ------ ------ ------ ------ ------ ------ ------ ------ - Dictat ed By: Petra Hooper [id number] Transc ribed By: Miguel Eduardo 1409 This is privil eged, confid ential inform ation intend ed only for the provid er named. Any use or distri bution by any person other than this provid er is strict ly prohib ited. If you receiv e this report in error, please notify us immedi ately at and return the origin al report to us at the addres s above. Thank- you. ayala [facility] [address] [place], [address] 05/31/2024 09:16:34 05/31/20 24 05/30/2024 x-ray imagi ng repor t Patien t Name: Opal Araujo Unit #: [id number] Loc: DI Orderi ng Provid er: Nicole Bai DPM Accoun t #: [id number] Status : REG CLI Primar y Care Provid er: Max on,Pat stacey Date of Exam: Sex: F Admiss ion Date: : 1944 Age: 78 Exam(s ) XR FOOT LT COMPLE TE XR HEEL LT OS CALCIS EXAM: XR FOOT LT COMPLE TE CLINIC AL HISTOR Y: Pain in left heel M84.37 5A STRESS FX LEFT FOOT. TECHNI QUE: 2D digita l imagin g was perfor med. Three views. COMPAR CECILE: CR XR HEEL LT OS CALCIS from 2023 FINDIN GS: BONES: No acute fractu re is presen t. No bony destru ctive lesion is seen. Heel spurs. JOINTS : No disloc ation presen t. Mild degene rative change s . Hammer toe deform ities of the 2nd and 3rd toes. Flatte frances of the planta r arch. SOFT TISSUE : Mild vascul ar calcif icatio ns. IMPRES ALINA: No eviden ce of stress fractu re. Pes planus . Mild degene rative change s. DATA REPOSI TORY: RADIAT ION DOSE DELIVE RED: Ordere d By: Nicole Bai DPM CC: ------ ------ ------ ------ ------ ------ ------ ------ ------ ------ ------ ------ - Dictat ed By: Petra Hooper 1409 1413 Transc ribed By: Miguel Eduardo 1409 This is privil eged, confid ential inform ation intend ed only for the provid er named. Any use or distri bution by any person other than this [facility] er is strict ly prohib ited. If you receiv e this report in error, please notify us immedi ately at [phone] and return the origin al report to us at the addres s above. Thank- you. ayala [place] [id number] [place], [address] 05/31/2024 09:16:34 Result Notes None recorded. Problems Name Status Onset Date Resolution Date Notes Provider Name and Address Organization Details Recorded Time Amnesia Active 201806/13/2019 - Comments only - Tyrel Arnold - Patient today does mention that she has some memory difficulties, but she is able to manage well at home and displays no difficulties in naming or memory during conversation in the office. Sleep is good and her mood has been good. She is looking forward to completing her home remodeling so that she and her can enjoy detention in [place]. We can plan to follow her with more formal tesing if she desires in future visits. Problem Code: R41.3; Problem Code Type: ICD-10; Not Available [facility] 3 04:22:12 Adult health examination Active 201808/01/2020 - Comments only - Emily Leon MD - Patient had her mammogram in February of this year she states that next year she will be 75 so she may consider having one more then. She is concerned about insurance issues she would like to have some help in deciding what is the best add-on policy to her and her 's Medicare. We will ask Alannah mike to call her. Problem Code: Z00.00; Problem Code Type: ICD-10; Not Available [facility] 3 04:22:12 Tonic pupillary reaction Active 201803/14/2019 - Comments only - Emily Leon MD - I discussed that the adhesed pupil is not really concerned that she has had this her whole life it is not indicative of a stroke. Problem Code: H57.059; Problem Code Type: ICD-10; Not Available [facility] 3 04:22:12 Fatigue Active 202104/06/2022 - Comments only - Sinan Lyons RPA - Per husbands history, her functional capacity significantly dropped off suddenly 3 and half weeks ago. Progressive. Hypersomnolen ce during the day. Struggles to get up to move around. Has times where she seems to have staring spells. Blood work drawn today. Question memory loss impairing function. Her affect is flat. Very short answers to questions. Does not elaborate. Problem Code: R53.83; Problem Code Type: ICD-10; Not Available [facility] 3 04:22:12 Disorder of skin and/or subcutaneous tissue Active 202109/09/2022 - Comments only - Sinan Lyons RPA - on mid back. Most consistent with an irritated SK lesion. Approx. 1 cm diameter. I will see how this responds to liquid nitrogen. With prior patient consent, we treated with a cycle of liquid nitrogen. Patient tolerated well. Bandaid applied. Problem Code: L98.9; Problem Code Type: ICD-10; Not Available [facility] 3 04:22:13 Low back pain Active 202109/09/2022 - Comments only - Sinan Lyons RPA - L1 compression fracture. Likely acute. Summer 2021 Problem Code: M54.51; Problem Code Type: ICD-10; Not Available [facility] 3 04:22:13 Anemia Active 202111/12/2022 - Comments only - Sinan Lyons RPA - Iron studies along with CBC today. Problem Code: D64.9; Problem Code Type: ICD-10; Not Available [facility] 3 04:22:13 Heart murmur Active 202101/14/2023 - Comments only - Sinan Lyons RPA - reassuring echo. Preserved EF Problem Code: R01.1; Problem Code Type: ICD-10; Not Available [facility] 3 04:22:13 Pain in thoracic spine Active 2022 Problem Code: M54.6; Problem Code Type: ICD-10; Not Available [facility] 3 04:22:13 Abdominal pain Active 202207/08/2023 - Comments only - Sinan Lyons RPA - Epigastric discomfort with nausea for the past several weeks. Temporary relief with Rolaids. History of Niesen fundoplicatio n. No vomiting. Some associated dysphagia. Trial of daily PPI. Advised to stop NSAID that she has been using routinely for chronic pain. Ultrasound of her gallbladder. Follow-up with results of imaging. Follow-up back here in 2 weeks. Problem Code: R10.9; Problem Code Type: ICD-10; Not Available [facility] 3 04:22:14 Essential hypertension Active 201811/12/2022 - Comments only - Sinan Kojo [facility] on current management. No changes made today. Problem Code: I10; Problem Code Type: ICD-10; Not Available [facility] 3 04:22:14 Abdominal pain Completed 201906/22/2022 Problem Code: R10.9; Problem Code Type: ICD-10; Not Available [facility] 3 04:22:15 Pain in thoracic spine Completed 202109/09/2022 Problem Code: M54.89; Problem Code Type: ICD-10; Not Available [facility] 3 04:22:15 Senile osteoporosis Completed 201808/10/2023 06/13/2019 - Comments only - Tyrel Arnold - Patient reports taking Vitamin D and calcium supplements, and engaing in regular weight bearing exercise. Her DEXA scan at last annual showed osteporosis. Plan to continue current management. Problem Code: M81.0; Problem Code Type: ICD-10; Not Available [facility] 3 04:22:15 Not for resuscitation Completed 202204/01/2023 Problem Code: Z66; Problem Code Type: ICD-10; Not Available [facility] 3 04:22:16 Urinary tract infectious disease Completed 202106/22/2022 Problem Code: N39.0; Problem Code Type: ICD-10; Not Available [facility] 3 04:22:16 Low back pain Completed 202106/22/2022 Problem Code: M54.50; Problem Code Type: ICD-10; Not Available [facility] 3 04:22:17 Menopause present Completed 201808/10/2021 Problem Code: Z78.0; Problem Code Type: ICD-10; Not Available [facility] 3 04:22:18 Disorder of soft tissue of lower limb Completed 201808/10/2021 Problem Code: M70.971; Problem Code Type: ICD-10; Not Available [facility] 3 04:22:18 Incoordinatio n Completed 202006/22/2022 Problem Code: R27.9; Problem Code Type: ICD-10; Not Available [facility] 3 04:22:18 Pyuria Completed 202106/22/2022 Problem Code: R82.81; Problem Code Type: ICD-10; Not Available [facility] 3 04:22:18 Asthenia Completed 202106/22/2022 Problem Code: R53.1; Problem Code Type: ICD-10; Not Available [facility] 3 04:22:18 Screening mammography Completed 201808/10/2021 Problem Code: Z12.31; Problem Code Type: ICD-10; Not Available [facility] 3 04:22:19 Pain in thoracic spine Completed 202106/22/2022 Problem Code: M54.9; Problem Code Type: ICD-10; Not Available [facility] 3 04:22:19 Counseling Completed 201803/14/2019 Problem Code: Z71.89; Problem Code Type: ICD-10; Not Available [facility] 3 04:22:19 Infection of skin and/or subcutaneous tissue Completed 202006/22/2022 Problem Code: L08.89; Problem Code Type: ICD-10; Not Available [facility] 3 04:22:20 Problem Notes None recorded. Procedures Surgical History Date Name Laterality Status Provider Name and Address Organization Details Recorded Time 06/07/20 24 Subcutaneous Injection of Patient Supplied Medication completed Sharon Jacobs RN [facility] 06/07/2024 10:38:21 Imaging Results None recorded. Procedure Notes None recorded. Medical Equipment None Reported. Allergies Allergen ID Allergen Name Allergen Category Reaction Reaction Severity Criticality Documentation Date Start Date Code Code System Note Provider Name and Address Organization Details Recorded Time 10347 Levaquin medicatio n Not available Not available Not available 09/23/20232018 51551 2 RxNorm Aller gyCod e: '0012 65480 20'; Aller gyNam e: 'LEVA EDSON' ; Aller gyCon ceptT ype: 'NDC' ; Not Available [facility] 3 16:19:22 Medications Name Sig Start Date Stop Date Status Note LastModified by Organization Details LastModified Time cyclobenzap rine 10 mg tablet Take 1 tablet by mouth three times a day 03/21 completed Not Available Not Available Not Available cephalexin 250 mg tablet Take 1 tablet by mouth twice a day 04/17 completed Not Available Not Available Not Available amlodipine 5 mg tablet TAKE 1 TABLET BY MOUTH ONCE DAILY active Not Available Not Available No t Available tramadol 50 mg tablet Take 1 tablet by mouth twice a day as needed for pain 04/28 completed Not Available Not Available Not Available amlodipine 10 mg tablet Take 1 tablet by mouth once a day 03/02 completed Not Available Not Available Not Available omeprazole 20 mg capsule,del ayed release TAKE 1 CAPSULE BY MOUTH ONCE DAILY active Not Available Not Available No t Available Cipro 250 mg tablet Take 1 tablet by mouth twice a day 04/28 completed Not Available Not Available Not Available doxycycline hyclate 100 mg tablet Take 1 tablet by mouth twice a day 04/20 completed Not Available Not Available Not Available Bactrim DS 800 mg-160 mg tablet Take 1 tablet by mouth twice a day 04/10 completed Not Available Not Available Not Available cyclobenzap rine 5 mg tablet Take 1 tablet by mouth three times a day as needed 09/27 completed Not Available Not Available Not Available sodium chloride 1,000 mg soluble tablet Take 1 tablet by mouth once a day 09/27 completed Not Available Not Available Not Available potassium citrate ER 15 mEq (1,620 mg) tablet,exte nded release Take 1 tablet by mouth twice a day 07/08 completed Not Available Not Available Not Available Prolia 60 mg/mL subcutaneou s syringe Inject 1 ml subcutane ously as directed every 6 months active Not Available Not Available No t Available Calcium 600 with Vitamin D3 600 mg-12.5 mcg (500 unit) capsule Take 1 tablet by mouth once a day 04/30 completed Not Available Not Available Not Available potassium chloride ER 20 mEq tablet,exte nded release Take 1 tablet by mouth once a day 06/25 completed Not Available Not Available Not Available Vitals None Recorded Social History Question Answer Notes LastModified by Organizat ion Details LastModified Time Tobacco Smoking Status Never Smoker Sharon Jacobs RN [facility] [place] - [facility] 06/01/2024 11:37:10 What Was The Date Of Your Most Recent Tobacco Screening? 06/01/2024 [email or web address] Information not available 06/01/2024 Sex: Female Functional Status None recorded. Mental Status None recorded. Family History Relationship Description Onset Age of this Age Resolved Age Notes Notes:*Problem: Father- HTN Mother- Cancer Grandmother- Cancer [id number] Heart Attacks Medical History No medical history recorded. Gynecological HistoryNo gynecological history recorded. Obstetrics History GPAL:G 0 P 0 0 0 0 Immunizations Vaccine Type Date Status Provider Name and Address Organization Details Recorded Time zoster live 06/02/2022 completed Not Available [facility] 09/23/2023 05:45:58 Td(adult) unspecified formulation 11/14/2014 completed Not Available [facility] 09/23/2023 05:45:58 Influenza, high-dose, quadrivalent, PF 08/10/2021 completed Not Available [facility] 09/23/2023 05:45:58 Influenza, high-dose, quadrivalent, PF 08/13/2022 completed Not Available [facility] 09/23/2023 05:45:59 COVID-19, mRNA, LNP-S, PF, 100 mcg/0.5mL dose or 50 mcg/0.25mL dose 12/19/2020 completed Not Available [facility] 09/23/2023 05:45:59 COVID-19, mRNA, LNP-S, PF, 100 mcg/0.5mL dose or 50 mcg/0.25mL dose 01/16/2021 completed Not Available [facility] 09/23/2023 05:45:59 COVID-19, mRNA, LNP-S, PF, 100 mcg/0.5mL dose or 50 mcg/0.25mL dose 05/14/2022 completed Not Available [facility] 09/23/2023 05:46:00 COVID-19, mRNA, LNP-S, PF, 100 mcg/0.5mL dose or 50 mcg/0.25mL dose 09/17/2021 completed Not Available [facility] 09/23/2023 05:46:00 COVID-19, mRNA, LNP-S, bivalent, PF, 30 mcg/0.3 mL dose 04/01/2023 completed Not Available [facility] 09/23/20 05:46:00 COVID-19, mRNA, LNP-S, bivalent, PF, 30 mcg/0.3 mL dose 09/09/2022 completed Not Available [facility] 09/23/20 05:46:00 pneumococcal polysaccharide PPV23 09/16/2018 completed Not Available [facility] 2022 05:46:00 influenza, unspecified formulation 09/12/2019 completed Not Available [facility] 09/23/2023 05:46:01 influenza, unspecified formulation 09/14/2020 completed Not Available [facility] 09/23/2023 05:46:01 Influenza, high-dose, quadrivalent, PF 08/19/2023 completed Not Available [facility] 11/25/2023 05:31:39 COVID-19, mRNA, LNP-S, PF, shweta-sucrose, 30 mcg/0.3 mL 09/20/2023 completed Not Available [facility] 11/25/2023 05:31:39 Past Encounters Encounter ID Performer Location Encounter Start Date Encounter Closed Date Diagnosis/Indication Diagnosis SNOMED-CT Code [id number] SINAN LYONS PA-C [facility] [place] [place] [address] 06/01/2024 11:29:38 06/01/2024 12:10:51 Renal insufficiency [id number] Osteoporosis [id number] Sharon Jacobs RN [facility] [place] [place] [address] 06/07/2024 10:25:55 06/07/2024 10:39:07 Osteoporosis [id number] Health Concerns Section Related Observation LastModified by Organization Detai ls LastModified Time None Recorded Concern Status LastModified by Organization Details LastModified Time None Recorded Payers Encounter Date Sequence Insurance Name Policy Number Policy Wyatt Covered Member ID Wyatt Member ID Guarantor Name 06/07/2024 1 [facility] (MEDICARE REPLACEMENT/A DVANTAGE - PPO) [id number] Sadia Araujo [id number] Sadia Oro Episode No OBEpisode recorded.
--- OUTSIDE RECORDS SUMMARY | 2024-06-12 02:38 | XMS_ITS | Encounter Summary ---
Author Organization [facility] Address [address] [place] [address] Care Team Providers Care Hair Boiler Name Role Phone Unavailable Primary Care Provider Unavailabl e Encounter Details Date Type Department Care Team (Late st Contact Info) Description 09/29/2022 Lab Requisition [facility] [address], [place] [address] Outr Resulting Lab, Provider Social History Tobacco [...] Procedure Name Priority Date/Time Associated Diagnosis Comments CALCIUM, URINE 24HR Routine 09/29/2022 1 2:02 EST documented in this encounter Results * CALCIUM, URINE 24HR (09/29/2022 12:02 EST) Calcium, Urine 7.0 See Note mg/dL 09/30/2022 9:10 [facility] Comment: NOTE: Reference range not established Calcium, Urine 24 hr 133 100 - 300 mg/24hrs 09/30/2022 9:10 [facility] Comment:Reference range assu mes a normal daily intake of calcium between 600 - 800 mg/day. Urine Volume 1,900 mL 09/30/2022 9:10 [facility] Urine Collection Period 24.0 Hours 09/30/2022 9:10 [facility] Urine 24 HOUR URINE SPECIMEN / Unknown 09/29/2022 12:02 EST 09/29/2022 22:00 EST Provider Outr Resulting Lab URINALYSIS O RDERABLES [facility] [address] [place] [address] documented in this encounter Visit Diagnoses Not on filedocumented in this encounter
--- OUTSIDE RECORDS SUMMARY | 2024-06-12 02:38 | XMS_ITS | Continuity of Care Document ---
Author Organization [place] [facility] [place] [address] Assessment No assessment recorded. Plan of Treatment Reminders Order Date Submit Date Provider Last Modified By Organization Details Last Modified Time Details Appointments Follow Up 30 2024 10:00A M SINAN LYNOS Not available Not available Not available Lab CBC - Right arm 1 sst 1 lav1 attempt to left ac 2023 024 [facility] (Registration ), [address] [place] [address] [place], [address], 06/01/2024 16:19:13 BMP, serum or plasma - Right arm 1 sst 1 lav1 attempt to left ac 2023 024 [facility] (Registration ), [address] [place] [address] [place], [address], 06/08/2024 08:39:50 Referral None recorded. Procedures None recorded. Surgeries None recorded. Imaging None recorded. Medication Orders Prolia 60 mg/mL subcutane ous syringe 2023 024 [facility] ([facility]), [address], [address], [place], [place], [id number], 06/01/2024 12:19:26 Patient TargetsNo targets recorded. Patient Instructions Encounter Date Encounter Id Patient Instructions Last Modified By Organization Details Last Modified Time 06/01/2024 [id number] Sadia - Ellen will send a prescription for prolia to pharmacy. Call us when you receive this so we can give you the shot. 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 Medicine, Encounter Date: 06/06/2024 Registered Clinical Dietitian Referral for Stre ss fracture of left calcaneus Referring Physician: Sinan Lyons [facility] Medicine, Encounter Date: 06/07/2024 Results Created Date Observation Date Name Description Value Unit Range Abnormal Flag LastModifiedBy Organization Detail LastModifiedTime 05/31/20 24 05/30/2024 x-ray imagi ng repor t Patien t Name: Opal Araujo Unit #: [id number] Loc: DI Orderi ng Provid er: Nicole Bai DPM Accoun t #: [id number] Status : REG CLI Primar y Care Provid er: Max on,Martha ibarra Date of Exam: Sex: F Admiss ion [...] the addres s above. Thank- you. ayala [facility] [address] [place], [address] 05/31/2024 09:16:34 05/31/20 24 05/30/2024 x-ray imagi ng repor t Patien t Name: Opal Araujo Unit #: [id number] Loc: DI Orderi ng Provid er: Philip Baia DPM Accoun t #: [id number] Status : REG CLI Primar y Care Provid er: Max on,Martha stacey Date of Exam: Sex: F Admiss [...] report in error, please notify us immedi kendra at and return the origin al report to us at the addres s above. Thank- you. ayala [facility] [address], [place], [address] 05/31/2024 09:16:34 Result Notes None recorded. Problems [...] so that she and her can enjoy group home in [place]. We can plan to follow her with more formal tesing if she desires in future visits. Problem Code: R41.3; Problem Code Type: ICD-10; Not Available [facility] 3 04:22:12 Adult health examination Active 201808/01/2020 [...] her 's Medicare. We will ask Alannah mckeon to call her. Problem Code: Z00.00; Problem Code Type: ICD-10; Not Available [facility] 3 04:22:12 Tonic pupillary reaction Active 201803/14/2019 - Comments only - Emily Leon MD - I discussed that the adhesed pupil is not really concerned that she has had this her whole life it is not indicative of a stroke. Problem Code: H57.059; Problem Code Type: ICD-10; Not Available [facility] 3 04:22:12 Fatigue Active 202104/06/2022 - Comments [...] R53.83; Problem Code Type: ICD-10; Not Available [facility] 3 04:22:12 Disorder of skin and/or subcutaneous [...] L98.9; Problem Code Type: ICD-10; Not Available [facility] 3 04:22:13 Low back pain Active 202109/09/2022 - Comments only - Sinan Lyons RPA - L1 compression fracture. Likely acute. Summer 2021 Problem Code: M54.51; Problem Code Type: ICD-10; Not Available [facility] 3 04:22:13 Anemia Active 202111/12/2022 - Comments only - Sinan Lyons RPA - Iron studies along with CBC today. Problem Code: D64.9; Problem Code Type: ICD-10; Not Available [facility] 3 04:22:13 Heart murmur Active 202101/14/2023 - Comments only - Sinan Lyons RPA - reassuring echo. Preserved EF Problem Code: R01.1; Problem Code Type: ICD-10; Not Available [facility] 3 04:22:13 Pain in thoracic spine Active 2022 Problem Code: M54.6; Problem Code Type: ICD-10; Not Available [facility] 3 04:22:13 Abdominal pain Active 202207/08/2023 - [...] R10.9; Problem Code Type: ICD-10; Not Available [facility] 3 04:22:14 Essential hypertension Active 201811/12/2022 - Comments only - Sinan Lyons RPA - Well-controll ed on current management. No changes made today. Problem Code: I10; Problem Code Type: ICD-10; Not Available [facility] 3 04:22:14 Abdominal pain Completed 201906/22/2022 Problem Code: R10.9; Problem Code Type: ICD-10; Not Available [facility] 3 04:22:15 Pain in thoracic spine Completed 202109/09/2022 Problem Code: M54.89; Problem Code Type: ICD-10; Not Available [facility] 3 04:22:15 Senile osteoporosis Completed 201808/10/2023 06/13/2019 - Comments only - Tyrel Arnold - Patient reports taking Vitamin D and calcium supplements, and engaing in regular weight bearing exercise. Her DEXA scan at last annual showed osteporosis. Plan to continue current management. Problem Code: M81.0; Problem Code Type: ICD-10; Not Available [facility] 3 04:22:15 Not for resuscitation Completed 202204/01/2023 Problem Code: Z66; Problem Code Type: ICD-10; Not Available [facility] 3 04:22:16 Urinary tract infectious disease Completed 202106/22/2022 Problem Code: N39.0; Problem Code Type: ICD-10; Not Available [facility] 3 04:22:16 Low back pain Completed 202106/22/2022 Problem Code: M54.50; Problem Code Type: ICD-10; Not Available [facility] 3 04:22:17 Menopause present Completed 201808/10/2021 Problem Code: Z78.0; Problem Code Type: ICD-10; Not Available [facility] 3 04:22:18 Disorder of soft tissue of lower limb Completed 201808/10/2021 Problem Code: M70.971; Problem Code Type: ICD-10; Not Available [facility] 3 04:22:18 Incoordinatio n Completed 202006/22/2022 Problem Code: R27.9; Problem Code Type: ICD-10; Not Available [facility] 3 04:22:18 Pyuria Completed 202106/22/2022 Problem Code: R82.81; Problem Code Type: ICD-10; Not Available [facility] 3 04:22:18 Asthenia Completed 202106/22/2022 Problem Code: R53.1; Problem Code Type: ICD-10; Not Available [facility] 3 04:22:18 Screening mammography Completed 201808/10/2021 Problem Code: Z12.31; Problem Code Type: ICD-10; Not Available [facility] 3 04:22:19 Pain in thoracic spine Completed 202106/22/2022 Problem Code: M54.9; Problem Code Type: ICD-10; Not Available [facility] 3 04:22:19 Counseling Completed 201803/14/2019 Problem Code: Z71.89; Problem Code Type: ICD-10; Not Available [facility] 3 04:22:19 Infection of skin and/or subcutaneous tissue Completed 202006/22/2022 Problem Code: L08.89; Problem Code Type: ICD-10; Not Available [facility] 3 04:22:20 Problem Notes None recorded. Procedures Surgical History Date Name Laterality Status Provider Name and Address Organization Details Recorded Time 06/07/20 24 Subcutaneous Injection of Patient Supplied Medication completed Sharon Jacobs RN [facility], [facility] 06/07/2024 10:38:21 Imaging Results None recorded. Procedure Notes None recorded. Medical Equipment None Reported. Allergies Allergen ID Allergen Name Allergen Category Reaction Reaction Severity Criticality Documentation Date Start Date Code Code System Note Provider Name and Address Organization Details Recorded Time 28415 Levaquin medicatio n Not available Not available Not available 09/23/20232018 28358 2 RxNorm Aller gyCod e: '0012 64851 20'; Aller gyNam e: 'LEVA EDSON' ; Aller gyCon ceptT ype: 'NDC' ; Not Available [facility] 3 16:19:22 Medications Name Sig Start Date [...] Not Available Not Available Not Available Vitals Date Recorded Body height Body mass index (BMI) Body weight Body temperature Heart rate Systolic blood pressure Diastolic blood pressure Provider Name and Address Organization Details Last Updated DateTime 4 156.489 4 cm 23.7 kg/m2 37246.8 2 g 99.3 [degF] 68 /min 110 mm[Hg] 64 mm[Hg] Sharon Jacobs RN [facility] 4 11:35:40 Social History Question Answer Notes LastModified by Organizat ion Details LastModified Time Tobacco Smoking Status Never Smoker Sharon Jacobs RN [facility], [facility] 06/01/2024 11:37:10 What Was The Date Of Your Most Recent Tobacco Screening? 06/01/2024 [email or web address] Information not available 06/01/2024 Sex: Female Functional Status None recorded. Mental Status None recorded. Family History Relationship Description Onset Age of this Age Resolved Age Notes Notes:*Problem: Father- HTN Mother- Cancer Grandmother- Cancer [id number] Heart Attacks Medical History No medical history recorded. Gynecological HistoryNo gynecological history recorded. Obstetrics History GPAL:G 0 P 0 0 0 0 Immunizations Vaccine Type Date Status Provider Name and Address Organization Details Recorded Time zoster live 06/02/2022 completed Not Available [facility] 09/23/2023 05:45:58 Td(adult) unspecified formulation 11/14/2014 completed Not Available [facility] 09/23/2023 05:45:58 Influenza, high-dose, quadrivalent, PF 08/10/2021 completed Not Available [facility] 09/23/2023 05:45:58 Influenza, high-dose, quadrivalent, PF 08/13/2022 completed Not Available [facility] 09/23/2023 05:45:59 COVID-19, mRNA, LNP-S, PF, 100 mcg/0.5mL dose or 50 mcg/0.25mL dose 12/19/2020 completed Not Available [facility] 09/23/2023 05:45:59 COVID-19, mRNA, LNP-S, PF, 100 mcg/0.5mL dose or 50 mcg/0.25mL dose 01/16/2021 completed Not Available [facility] 09/23/2023 05:45:59 COVID-19, mRNA, LNP-S, PF, 100 mcg/0.5mL dose or 50 mcg/0.25mL dose 05/14/2022 completed Not Available [facility] 09/23/2023 05:46:00 COVID-19, mRNA, LNP-S, PF, 100 mcg/0.5mL dose or 50 mcg/0.25mL dose 09/17/2021 completed Not Available [facility] 09/23/2023 05:46:00 COVID-19, mRNA, LNP-S, bivalent, PF, 30 mcg/0.3 mL dose 04/01/2023 completed Not Available [facility] 09/23/20 05:46:00 COVID-19, mRNA, LNP-S, bivalent, PF, 30 mcg/0.3 mL dose 09/09/2022 completed Not Available [facility] 09/23/20 05:46:00 pneumococcal polysaccharide PPV23 09/16/2018 completed Not Available [facility] 2022 05:46:00 influenza, unspecified formulation 09/12/2019 completed Not Available [facility] 09/23/2023 05:46:01 influenza, unspecified formulation 09/14/2020 completed Not Available [facility] 09/23/2023 05:46:01 Influenza, high-dose, quadrivalent, PF 08/19/2023 completed Not Available [facility] 11/25/2023 05:31:39 COVID-19, mRNA, LNP-S, PF, shweta-sucrose, 30 mcg/0.3 mL 09/20/2023 completed Not Available [facility] 11/25/2023 05:31:39 Past Encounters Encounter ID Performer Location Encounter Start Date Encounter Closed Date Diagnosis/Indication Diagnosis SNOMED-CT Code [id number] SINAN LYONS PA-C [facility] [address] [place] [address] 05/03/2024 13:28:40 05/03/2024 13:54:02 Ingrowing toenail [id number] SINAN LYONS PA-C [facility] [place] [address] 06/01/2024 11:29:38 06/01/2024 12:10:51 Renal insufficiency [id number] Osteoporosis 23640653 Health Concerns Section Related Observation LastModified by Organization Detai ls LastModified Time None Recorded Concern Status LastModified by Organization Details LastModified Time None Recorded Payers Encounter Date Sequence Insurance Name Policy Number Policy Wyatt Covered Member ID Wyatt Member ID Guarantor Name 06/01/2024 1 [facility] (MEDICARE REPLACEMENT/A DVANTAGE - PPO) [id number] Sadia Araujo [id number] Sadia Araujo Notes Date Note Type Note Provider Name and Address Organization Details Recorded Time 06/01/2024 text/html HPI Notes: Sadia is here for followup of osteoporosis, htn, and renal insufficiency. She his currently in a walking boot due to suspected stress fracture of left foot. Following with podiatry. Otherwise she has been feeling well. Has not received a prolia injection since last year. [address] [place], [address], [facility]. 06/01/2024 12:19:30 OBGyn Episode No OBEpisode recorded.
--- OUTSIDE RECORDS SUMMARY | 2024-06-12 02:38 | XMS_ITS | Referral Summary ---
Author Organization [facility] Address [address] [place] [address] Care Team Providers Care It Service Continuity Supervisor Name Role Phone Unavailable Primary Care Provider Unavailabl e Social History Tobacco Use Types Packs/Day Years Used Date Smoking Tobacco: Never Assessed Sex and Gender Information Value Date Recorded Sex Assigned at Not on file Gender Identity Not on file Sexual Orientation Not on file Plan of Treatment Not on file
--- OUTSIDE RECORDS SUMMARY | 2024-06-12 02:38 | XMS_ITS | Clinical Summary ---
Author Organization [facility] Address [facility] [place] [address] Care Team Providers Care Manager Material Name Role Phone Unavailable Primary Care Provider Unavailabl e Immunizations Name Administration Dates Next Due Influenza Quadrivalent, Preservative Free 2017 Social History Tobacco Use Types Packs/Day Years Used Date Smoking Tobacco: Never Assessed Sex and Gender Information Value Date Recorded Sex Assigned at Not on file Gender Identity Not on file Sexual Orientation Not on file Plan of Treatment Upcoming Encounters Date Type Department Care Team (Late st Contact Info) Description 10/24/2024 11:30 AM EST Office Visit Podiatry at [facility] [place] [id number] Bharati Schwartz DPM [facility] [place] [address] Health Maintenance Due Date Last Done Comments Hepatitis C Screening 1963 Tdap adult 1964 Tetanus vaccine 1964 Zoster vaccine (1 of 2) 1995 Advance Directive 2000 Bone Density Scan 2010 Pneumoccocal Vaccine: 65+ (1 of 1 - PCV) 2010 Covid-19 Vaccine (1 - season) 2023 Influenza (Flu) vaccine (1 o f 1 - Influenza standard series) 07/15/2024 08/24/2018
--- OUTSIDE RECORDS SUMMARY | 2024-06-12 02:38 | XMS_ITS | Encounter Summary ---
Author Organization [facility] [place] [address] Care Team Providers Care Concrete Smoother Name Role Phone Unavailable Primary Care Provider Unavailabl e Reason for Visit * Reason Onset Date Comments Appointment 07/25/2018 Encounter Details Date Type Department Care Team (Late st Contact Info) Description 07/25/2018 Telephone Internal Medicine at [facility] [place] [phone] Leah Valenzuela Appointment Social History Tobacco Use Types Packs/Day Years Used Date Smoking Tobacco: Never Assessed Sex and Gender Information Value Date Recorded Sex Assigned at Not on file Gender Identity Not on file Sexual Orientation Not on file documented as of this encounter Miscellaneous Notes * Telephone Encounter - Steffany Thompson - 07/25/2018 1:01 PM EDT LVM for patient that if she needs to be seen this Tuesday, she could come to the walk in clinic. * Telephone Encounter - Leah Valenzuela - 07/25/2018 11:49 AM EDT Message: patient called requesting to establish care with a female provider. She is in need of an appointment for this coming Tuesday to have stitches removed. They were done in [place]. Informed that we currently do not have any openings for a few weeks. She then said that she had to go and the callwas disconnected. No other information was received. [place] is sending message, (without the patients knowledge, as she had to go and disconnected the call) to team to see if it is possible that someone could contact the patient to see if she could be put somewhere this Tuesday. Loom Fixer Apprentice did verify phone number in patients chart. Caller and relationship (if other than patient-full name): patient Best time to call back: Ok to leave a message: [] Ok to send my- message: [] Offered Appointment: MA/Nurse contacted via: Message: x Call: Pager: documented in this encounter Plan of Treatment Upcoming Encounters Date Type Department Care Team (Late st Contact Info) Description 10/24/2024 11:30 AM EST Office [place] [address] Bharati Schwartz [facility] [place] [place] [address] documented as of this encounter Visit Diagnoses Not on filedocumented in this encounter
--- OUTSIDE RECORDS SUMMARY | 2024-06-12 02:38 | XMS_ITS | Data Portability ---
Author Organization [place] - [facility] [place] [address] Assessment No assessment recorded. Plan of Treatment Reminders Order Date Submit Date Provider Last Modified By Organization Details Last Modified Time Details Appointments Follow Up 30 2024 10:00A M SINAN VARMA Not available Not available Not available Lab CBC - Right arm 1 sst 1 lav1 attempt to left ac 2023 024 [facility] (Registration ), [address] [place] [address] [place], [address], 06/01/2024 16:19:13 BMP, serum or plasma - Right arm 1 sst 1 lav1 attempt to left ac 2023 024 [facility] (Registration ), [address] [place] [address] [place], [address], 06/08/2024 08:39:50 Referral None recorded. Procedures None recorded. Surgeries None recorded. Imaging None recorded. Medication Orders Prolia 60 mg/mL subcutane ous syringe 2023 024 [facility] ([facility]), [address], [address], [place], [place], [id number], 06/01/2024 12:19:26 Patient TargetsNo targets recorded. Patient Instructions Encounter Date Encounter Id Patient Instructions Last Modified By Organization Details Last Modified Time 06/01/2024 [id number] Sadia - I will send a prescription for prolia to pharmacy. Call us when you receive this so we can give you the shot. ayala Not available 06/01/2024 11:44:32 Reason for Referral Surgical Services Manager Referral for Re nal insufficiency Referring Physician: Family Latrice Kay, Encounter Date: 06/06/2024 Mid Level Provider Referral for Stre ss fracture of left calcaneus Referring Physician: Family Latrice Kay, Encounter Date: 06/07/2024 Results Created Date Observation Date Name Description Value Unit Range Abnormal Flag LastModifiedBy Organization Detail LastModifiedTime 06/01/20 24 06/01/2024 COMPL ETE BLOOD COUNT NO DIFF WBC 8.91 10_3/ uL 4.4-10 .8 normal Not Available [address] [place], [address] 06/01/2024 16:19:13 06/01/20 24 06/01/2024 COMPL ETE BLOOD COUNT NO DIFF RBC 3.90 10_6/ uL 3.93-5 .22 low Not Available [address] [place], [address] 06/01/2024 16:19:13 06/01/20 24 06/01/2024 COMPL ETE BLOOD COUNT NO DIFF HGB 11.0 g/dL 11.2-1 5.7 low Not Available [address] [place], [address] 06/01/2024 16:19:13 06/01/20 24 06/01/2024 COMPL ETE BLOOD COUNT NO DIFF HCT 32.9 % 36.0-4 6.0 low Not Available [address] [place], [address] 06/01/2024 16:19:13 06/01/20 24 06/01/2024 COMPL ETE BLOOD COUNT NO DIFF MCV 84 fL 80-95 normal Not Available [address] [place], [address] 06/01/2024 16:19:13 06/01/20 24 06/01/2024 COMPL ETE BLOOD COUNT NO DIFF MCH 28.2 pg 27.0-3 3.0 normal Not Available [address] [place], [address] 06/01/2024 16:19:13 06/01/20 24 06/01/2024 COMPL ETE BLOOD COUNT NO DIFF MCHC 33.4 % 32.0-3 6.0 normal Not Available [address] [place], [address] 06/01/2024 16:19:13 06/01/20 24 06/01/2024 COMPL ETE BLOOD COUNT NO DIFF RDW 14.1 % 11.7-1 4.6 normal Not Available [address] [place], [address] 06/01/2024 16:19:13 06/01/20 24 06/01/2024 COMPL ETE BLOOD COUNT NO DIFF platelet count 315 10_3/ uL 130-40 0 normal Not Available [address] [place], [address] 06/01/2024 16:19:13 06/01/20 24 06/01/2024 COMPL ETE BLOOD COUNT NO DIFF MPV 10.1 fL 8.0-11 .0 normal Not Available [address] [place], [address] 06/01/2024 16:19:13 06/01/20 24 06/01/2024 BASIC METAB OLIC PANEL calcium 8.7 mg/dL 8.5-10 .1 normal Not Available [facility] (Registration ) [address] [place] [address] [place], [address], 06/01/2024 16:29:05 06/01/20 24 06/01/2024 BASIC METAB OLIC PANEL glucose 102 mg/dL 74-106 normal Not Available [facility] (Registration ) [address] [place] [address] [place], [address], 06/01/2024 16:29:05 06/01/20 24 06/01/2024 BASIC METAB OLIC PANEL BUN 27 mg/dL 7-18 high Not Available [facility] (Registration ) [address] [place] [address] [place], [address], 06/01/2024 16:29:05 06/01/20 24 06/01/2024 BASIC METAB OLIC PANEL creatinine 2.3 mg/dL 0.55-1 .02 high Not Available [facility] (Registration ) [address] [place] [address] [place], [address], 06/01/2024 16:29:05 06/01/20 24 06/01/2024 BASIC METAB OLIC PANEL estimated GFR 21.22 mL/min /1.73m 2 Not Available [facility] (Registration ) [address] [place] [address] [place], [address], 06/01/2024 16:29:05 06/01/20 24 06/01/2024 BASIC METAB OLIC PANEL sodium 133 mmol/ L 136-14 5 low Not Available [facility] (Registration ) [address] [place] [address] [place], [address], 06/01/2024 16:29:05 06/01/20 24 06/01/2024 BASIC METAB OLIC PANEL potassium 3.5 mmol/ L 3.5-5. 1 normal Not Available [facility] (Registration ) [address] [place] [address] [place], [address], 06/01/2024 16:29:05 06/01/20 24 06/01/2024 BASIC METAB OLIC PANEL chloride 101 mmol/ L 98-107 normal Not Available [facility] (Registration ) [address] [place] [address] [place], [address], 06/01/2024 16:29:05 06/01/20 24 06/01/2024 BASIC METAB OLIC PANEL CO2 17.3 mmol/ L 21.0-3 2.0 low Not Available [facility] (Registration ) [address] [place] [address] [place], [address], 06/01/2024 16:29:05 06/01/20 24 06/01/2024 BASIC METAB OLIC PANEL anion gap 14.7 mmol/ L 3-11 high Not Available [facility] (Registration ) [address] [place] [address] [place], [address], 06/01/2024 16:29:05 05/31/20 24 05/30/2024 x-ray imagi ng repor t Patien t Name: Opal Araujo Unit #: [id number] Loc: DI Orderramón ng Provid er: Nicole Bai DPM Accdanielle t #: [id number] Status : REG CLI Primar y [...] this report in error, please notify us immraman gardner at and return the origin al report to us at the addres s above. Thank- you. ayala [facility] [address] [place], [address] 05/31/2024 09:16:34 05/31/20 24 05/30/2024 x-ray imagi ng repor t Patien t Name: Opal Araujo Unit #: [id number] Loc: DI Orderi ng Provid er: Nicole Bai DPM Accoun t #: [id number] Status : REG CLI Primar y [...] the addres s above. Thank- you. ayala [facility] [address], [place], [address] 05/31/2024 09:16:34 Result Notes None recorded. Problems [...] so that she and her can enjoy residential in [place]. We can plan to follow her with more formal tesing if she desires in future visits. Problem Code: R41.3; Problem Code Type: ICD-10; Not Available [facility] 3 04:22:12 Adult health examination Active 201808/01/2020 [...] Z00.00; Problem Code Type: ICD-10; Not Available [facility] 3 04:22:12 Tonic pupillary reaction Active 201803/14/2019 - Comments only - Emily Leon MD - I discussed that the adhesed pupil is not really concerned that she has had this her whole life it is not indicative of a stroke. Problem Code: H57.059; Problem Code Type: ICD-10; Not Available [facility] 3 04:22:12 Fatigue Active 202104/06/2022 - Comments only - Sinan Varma RPA - Per husbands history, her functional [...] R53.83; Problem Code Type: ICD-10; Not Available [facility] 3 04:22:12 Disorder of skin and/or subcutaneous tissue Active 202109/09/2022 - Comments only - Sinan Varma RPA - on mid back. Most consistent [...] Active 202109/09/2022 - Comments only - Sinan Varma RPA - L1 compression fracture. Likely acute. Summer 2021 Problem Code: M54.51; Problem Code Type: ICD-10; Not Available [facility] 3 04:22:13 Anemia Active 202111/12/2022 - Comments only - Sinan Varma RPA - Iron studies along with CBC today. Problem Code: D64.9; Problem Code Type: ICD-10; Not Available [facility] 3 04:22:13 Heart murmur Active 202101/14/2023 - Comments only - Sinan Varma RPA - reassuring echo. Preserved EF Problem Code: R01.1; Problem Code Type: ICD-10; Not Available [facility] 3 04:22:13 Pain in thoracic spine Active 2022 Problem Code: M54.6; Problem Code Type: ICD-10; Not Available [facility] 3 04:22:13 Abdominal pain Active 202207/08/2023 - Comments only - Sinan Varma RPA - Epigastric discomfort with nausea for [...] R10.9; Problem Code Type: ICD-10; Not Available [facility] 3 04:22:14 Essential hypertension Active 201811/12/2022 - Comments only - Sinan Varma RPA - Well-controll ed on current management. No changes made today. Problem Code: I10; Problem Code Type: ICD-10; Not Available [facility] 3 04:22:14 Abdominal pain Completed 201906/22/2022 Problem Code: R10.9; Problem Code Type: ICD-10; Not Available [facility] 3 04:22:15 Pain in thoracic spine Completed 202109/09/2022 Problem Code: M54.89; Problem Code Type: ICD-10; Not Available [facility] 3 04:22:15 Senile osteoporosis Completed 201808/10/2023 06/13/2019 - Comments only - Tyrel Arnold - Patient reports taking Vitamin D and calcium supplements, and engaing in regular weight bearing exercise. Her DEXA scan at last annual showed osteporosis. Plan to continue current management. Problem Code: M81.0; Problem Code Type: ICD-10; Not Available [facility] 3 04:22:15 Not for resuscitation Completed 202204/01/2023 Problem Code: Z66; Problem Code Type: ICD-10; Not Available [facility] 3 04:22:16 Urinary tract infectious disease Completed 202106/22/2022 Problem Code: N39.0; Problem Code Type: ICD-10; Not Available [facility] 3 04:22:16 Low back pain Completed 202106/22/2022 Problem Code: M54.50; Problem Code Type: ICD-10; Not Available [facility] 3 04:22:17 Menopause present Completed 201808/10/2021 Problem Code: Z78.0; Problem Code Type: ICD-10; Not Available [facility] 3 04:22:18 Disorder of soft tissue of lower limb Completed 201808/10/2021 Problem Code: M70.971; Problem Code Type: ICD-10; Not Available [facility] 3 04:22:18 Incoordinatio n Completed 202006/22/2022 Problem Code: R27.9; Problem Code Type: ICD-10; Not Available [facility] 3 04:22:18 Pyuria Completed 202106/22/2022 Problem Code: R82.81; Problem Code Type: ICD-10; Not Available [facility] 3 04:22:18 Asthenia Completed 202106/22/2022 Problem Code: R53.1; Problem Code Type: ICD-10; Not Available [facility] 3 04:22:18 Screening mammography Completed 201808/10/2021 Problem Code: Z12.31; Problem Code Type: ICD-10; Not Available [facility] 3 04:22:19 Pain in thoracic spine Completed 202106/22/2022 Problem Code: M54.9; Problem Code Type: ICD-10; Not Available [facility] 3 04:22:19 Counseling Completed 201803/14/2019 Problem Code: Z71.89; Problem Code Type: ICD-10; Not Available [facility] 3 04:22:19 Infection of skin and/or subcutaneous tissue Completed 202006/22/2022 Problem Code: L08.89; Problem Code Type: ICD-10; Not Available [facility] 3 04:22:20 Problem Notes None recorded. Procedures Surgical History Date Name Laterality Status Provider Name and Address Organization Details Recorded Time 06/07/20 Subcutaneous Injection of Patient Supplied Medication completed Sharon Jacobs RN [facility], [facility] 06/07/2024 10:38:21 Imaging Results Imaging Date Name Status LastModified by Organiz [facility] Details LastModified Time 05/30/2024 x-ray imaging report completed [email or web address] [address] [place], [address] 05/31/2024 09:16:34 05/30/2024 x-ray imaging report completed [email or web address] [address] [place], [address] 05/31/2024 09:16:34 Procedure Notes None recorded. Medical Equipment None Reported. Allergies Allergen ID Allergen Name Allergen Category Reaction Reaction Severity Criticality Documentation Date Start Date Code Code System Note Provider Name and Address Organization Details Recorded Time 49314 Levaquin medicatio n Not available Not available Not available 09/23/20232018 04683 2 RxNorm Aller gyCod e: '0012 57114 20'; Aller gyNam e: 'LEVA EDSON' ; Aller gyCon ceptT ype: 'NDC' ; Not Available [facility] 16:19:22 Medications Name Sig Start Date Stop [...] mass index (BMI) Body weight Body temperature Oxygen saturation Oxygen saturation in Arterial blood by Pulse oximetry Respiratory rate Heart rate Systolic blood pressure Diastolic blood pressure Provider Name and Address Organization Details Last Updated DateTime 4 156.489 4 cm 23.2 kg/m2 36495.0 5 g 98.6 [degF] 92 % 92 % 13 /min 76 /min 118 mm[Hg] 64 mm[Hg] JEREMY DRUMMOND RN [place] [facility] 4 13:38:17 Date Recorded Body height Body mass index (BMI) Body weight Body temperature Heart rate Systolic blood pressure Diastolic blood pressure Provider Name and Address Organization Details Last Updated DateTime 4 156.489 4 cm 23.7 kg/m2 05972.8 2 g 99.3 [degF] 68 /min 110 mm[Hg] 64 mm[Hg] Sharon Jacobs RN [facility] 11:35:40 Social History Question Answer Notes LastModified by Organizat ion Details LastModified Time Tobacco Smoking Status Never Smoker Sharon Jacobs RN null, [facility] 06/01/2024 11:37:10 What Was The Date Of Your Most Recent Tobacco Screening? 06/01/2024 [email or web address] Information not available 06/01/2024 Sex: Female Functional Status None recorded. Mental Status None recorded. Family History Relationship Description Onset Age of this Age Resolved Age Notes Notes:*Problem: Father- HTN Mother- Cancer Grandmother- Cancer [id number] Heart Attacks Medical History No medical history recorded. Gynecological HistoryNo gynecological history recorded. Obstetrics History GPAL:G 0 P 0 0 0 0 Immunizations Vaccine Type Date Status Provider Name and Address Organization Details Recorded Time zoster live 06/02/2022 completed Not Available [facility] 09/23/2023 05:45:58 Td(adult) unspecified formulation 11/14/2014 completed Not Available [facility] 09/23/2023 05:45:58 Influenza, high-dose, quadrivalent, PF 08/10/2021 completed Not Available [facility] 09/23/2023 05:45:58 Influenza, high-dose, quadrivalent, PF 08/13/2022 completed Not Available [facility] 09/23/2023 05:45:59 COVID-19, mRNA, LNP-S, PF, 100 mcg/0.5mL dose or 50 mcg/0.25mL dose 12/19/2020 completed Not Available [facility] 09/23/2023 05:45:59 COVID-19, mRNA, LNP-S, PF, 100 mcg/0.5mL dose or 50 mcg/0.25mL dose 01/16/2021 completed Not Available [facility] 09/23/2023 05:45:59 COVID-19, mRNA, LNP-S, PF, 100 mcg/0.5mL dose or 50 mcg/0.25mL dose 05/14/2022 completed Not Available [facility] 09/23/2023 05:46:00 COVID-19, mRNA, LNP-S, PF, 100 mcg/0.5mL dose or 50 mcg/0.25mL dose 09/17/2021 completed Not Available [facility] 09/23/2023 05:46:00 COVID-19, mRNA, LNP-S, bivalent, PF, 30 mcg/0.3 mL dose 04/01/2023 completed Not Available [facility] 09/23/20 05:46:00 COVID-19, mRNA, LNP-S, bivalent, PF, 30 mcg/0.3 mL dose 09/09/2022 completed Not Available [facility] 09/23/20 05:46:00 pneumococcal polysaccharide PPV23 09/16/2018 completed Not Available [facility] 2022 05:46:00 influenza, unspecified formulation 09/12/2019 completed Not Available [facility] 09/23/2023 05:46:01 influenza, unspecified formulation 09/14/2020 completed Not Available [facility] 09/23/2023 05:46:01 Influenza, high-dose, quadrivalent, PF 08/19/2023 completed Not Available [facility] 11/25/2023 05:31:39 COVID-19, mRNA, LNP-S, PF, shweta-sucrose, 30 mcg/0.3 mL 09/20/2023 completed Not Available [facility] 11/25/2023 05:31:39 Past Encounters Encounter ID Performer Location Encounter Start Date Encounter Closed Date Diagnosis/Indication Diagnosis SNOMED-CT Code [id number] SINAN VARMA PA-C [facility] [place] [address] 05/03/2024 13:28:40 05/03/2024 13:54:02 Ingrowing toenail [id number] SINAN VARMA PA-C [facility] [place] [address] 06/01/2024 11:29:38 06/01/2024 12:10:51 Renal insufficiency [id number] Osteoporosis 52741714 [id number] Sharon Jacobs RN [facility] [address] [place] [address] 06/07/2024 10:25:55 06/07/2024 10:39:07 Osteoporosis 17028477 Health Concerns Section Related Observation LastModified by Organization Detai ls LastModified Time None Recorded Concern Status LastModified by Organization Details LastModified Time None Recorded Advance Directives Directive None Recorded Payers Encounter Date Sequence Insurance Name Policy Number Policy Wyatt Covered Member ID Wyatt Member ID Guarantor Name 05/03/2024 1 [facility] (MEDICARE REPLACEMENT/A DVANTAGE - PPO) [id number] Sadia Araujo [id number] Sadia Araujo 06/01/2024 1 [facility] (MEDICARE REPLACEMENT/A DVANTAGE - PPO) [id number] Sadia Araujo [id number] Sadia Araujo 06/07/2024 1 [facility] (MEDICARE REPLACEMENT/A DVANTAGE - PPO) [id number] Sadia Araujo [id number] Sadia Araujo Notes Date Note Type Note Provider Name and Address Organization Details Recorded Time 05/03/2024 text/html HPI Notes: Pain on the outside of her left great toe for the past week or so. History of ingrown toenails. Painful to wear most shoes. [address] [place], [address], [facility]. 05/03/2024 13:58:32 06/01/2024 text/html HPI Notes: aSdia is here for followup of osteoporosis, htn, and renal insufficiency. She his currently in a walking boot due to suspected stress fracture of left foot. Following with podiatry. Otherwise she has been feeling well. Has not received a prolia injection since last year. [address], [place], [address], [facility]. 06/01/2024 12:19:30 OBGyn Episode No OBEpisode recorded.
--- OUTSIDE RECORDS SUMMARY | 2024-06-12 02:38 | XMS_ITS | Clinical Summary ---
Author Organization [facility] Address [address] [place] [address] Care Team Providers Care Silk Screen Etcher Name Role Phone Unavailable Primary Care Provider Unavailabl e Social History Tobacco Use Types Packs/Day Years Used Date Smoking Tobacco: Never Assessed Sex and Gender Information Value Date Recorded Sex Assigned at Not on file Gender Identity Not on file Sexual Orientation Not on file Plan of Treatment Health Maintenance Due Date Last Done Comments Hepatitis C Screen 1945 RSV Immunization ( o r 60+ Years) (1 - 1-dose 60+ series) 2005 Fall Risk Screening 2010 COVID-19 Vaccine (2022-24 season) 2023
--- OUTSIDE RECORDS SUMMARY | 2024-06-12 02:38 | XMS_ITS | Continuity of Care Document ---
Author Organization [facility] [place] [address] Assessment No assessment recorded. Plan of Treatment [...] Patient InstructionsNo instructions recorded. 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 Latrice, Encounter Date: 06/07/2024 Results Created Date Observation Date Name Description Value Unit Range Abnormal Flag LastModifiedBy Organization Detail LastModifiedTime 05/31/20 24 05/30/2024 x-ray imagi ng repor t Patiphyllis t Name: Opal Araujo Unit #: [id number] Loc: DI Orderi ng Provid er: Nicole Bai DPM Accoun t #: [id number] Status : REG CLI Primar y [...] the addres s above. Thank- you. ayala [facility] [address] [place], [address] 05/31/2024 09:16:34 05/31/20 24 05/30/2024 x-ray imagi ng repor t Patien t Name: Opal Araujo Unit #: [id number] Loc: DI Orderi ng Provid er: Nicole Bai DPM Accoun t #: [id number] Status : REG CLI Primar y [...] bution by any person other than this [facility] er is strict ly prohib ited. If you receiv e this report in error, please notify us immedi ately at [phone] and return the origin al report to us at the addres s above. Thank- you. ayala [place] [address] [place], [address] 05/31/2024 09:16:34 Result Notes None recorded. Problems [...] so that she and her can enjoy [place] in [place]. We can plan to follow her with more formal tesing if she desires in future visits. Problem Code: R41.3; Problem Code Type: ICD-10; Not Available [facility] 3 04:22:12 Adult health examination Active 201808/01/2020 [...] Z00.00; Problem Code Type: ICD-10; Not Available [facility] 3 04:22:12 Tonic pupillary reaction Active 201803/14/2019 - Comments only - Emily Leon MD - I discussed that the adhesed pupil is not really concerned that she has had this her whole life it is not indicative of a stroke. Problem Code: H57.059; Problem Code Type: ICD-10; Not Available [facility] 3 04:22:12 Fatigue Active 202104/06/2022 - Comments [...] R53.83; Problem Code Type: ICD-10; Not Available [facility] 3 04:22:12 Disorder of skin and/or subcutaneous [...] L98.9; Problem Code Type: ICD-10; Not Available [facility] 3 04:22:13 Low back pain Active 202109/09/2022 - Comments only - Sinan Lyons RPA - L1 compression fracture. Likely acute. Summer 2021 Problem Code: M54.51; Problem Code Type: ICD-10; Not Available [facility] 3 04:22:13 Anemia Active 202111/12/2022 - Comments only - Sinan Lyons RPA - Iron studies along with CBC today. Problem Code: D64.9; Problem Code Type: ICD-10; Not Available [facility] 3 04:22:13 Heart murmur Active 202101/14/2023 - Comments only - Sinan Lyons RPA - reassuring echo. Preserved EF Problem Code: R01.1; Problem Code Type: ICD-10; Not Available [facility] 3 04:22:13 Pain in thoracic spine Active 2022 Problem Code: M54.6; Problem Code Type: ICD-10; Not Available [facility] 3 04:22:13 Abdominal pain Active 202207/08/2023 - [...] R10.9; Problem Code Type: ICD-10; Not Available [facility] 3 04:22:14 Essential hypertension Active 201811/12/2022 - Comments only - Sinan Kojo [facility] on current management. No changes made today. Problem Code: I10; Problem Code Type: ICD-10; Not Available [facility] 3 04:22:14 Abdominal pain Completed 201906/22/2022 Problem Code: R10.9; Problem Code Type: ICD-10; Not Available [facility] 3 04:22:15 Pain in thoracic spine Completed 202109/09/2022 Problem Code: M54.89; Problem Code Type: ICD-10; Not Available [facility] 3 04:22:15 Senile osteoporosis Completed 201808/10/2023 06/13/2019 - Comments only - Tyrel Arnold - Patient reports taking Vitamin D and calcium supplements, and engaing in regular weight bearing exercise. Her DEXA scan at last annual showed osteporosis. Plan to continue current management. Problem Code: M81.0; Problem Code Type: ICD-10; Not Available [facility] 3 04:22:15 Not for resuscitation Completed 202204/01/2023 Problem Code: Z66; Problem Code Type: ICD-10; Not Available [facility] 3 04:22:16 Urinary tract infectious disease Completed 202106/22/2022 Problem Code: N39.0; Problem Code Type: ICD-10; Not Available [facility] 3 04:22:16 Low back pain Completed 202106/22/2022 Problem Code: M54.50; Problem Code Type: ICD-10; Not Available [facility] 3 04:22:17 Menopause present Completed 201808/10/2021 Problem Code: Z78.0; Problem Code Type: ICD-10; Not Available [facility] 3 04:22:18 Disorder of soft tissue of lower limb Completed 201808/10/2021 Problem Code: M70.971; Problem Code Type: ICD-10; Not Available [facility] 3 04:22:18 Incoordinatio n Completed 202006/22/2022 Problem Code: R27.9; Problem Code Type: ICD-10; Not Available [facility] 3 04:22:18 Pyuria Completed 202106/22/2022 Problem Code: R82.81; Problem Code Type: ICD-10; Not Available [facility] 3 04:22:18 Asthenia Completed 202106/22/2022 Problem Code: R53.1; Problem Code Type: ICD-10; Not Available [facility] 3 04:22:18 Screening mammography Completed 201808/10/2021 Problem Code: Z12.31; Problem Code Type: ICD-10; Not Available [facility] 3 04:22:19 Pain in thoracic spine Completed 202106/22/2022 Problem Code: M54.9; Problem Code Type: ICD-10; Not Available [facility] 3 04:22:19 Counseling Completed 201803/14/2019 Problem Code: Z71.89; Problem Code Type: ICD-10; Not Available [facility] 3 04:22:19 Infection of skin and/or subcutaneous tissue Completed 202006/22/2022 Problem Code: L08.89; Problem Code Type: ICD-10; Not Available [facility] 3 04:22:20 Problem Notes None recorded. Procedures Surgical History Date Name Laterality Status Provider Name and Address Organization Details Recorded Time 06/07/20 24 Subcutaneous Injection of Patient Supplied Medication completed Sharon Jacobs RN [facility] 06/07/2024 10:38:21 Imaging Results None recorded. Procedure Notes None recorded. Medical Equipment None Reported. Allergies Allergen ID Allergen Name Allergen Category Reaction Reaction Severity Criticality Documentation Date Start Date Code Code System Note Provider Name and Address Organization Details Recorded Time 95272 Levaquin medicatio n Not available Not available Not available 09/23/20232018 31713 2 RxNorm Aller gyCod e: '0012 09120 20'; Aller gyNam e: 'LEVA EDSON' ; Aller gyCon ceptT ype: 'NDC' ; Not Available [facility] 3 16:19:22 Medications Name Sig Start Date [...] DateTime 4 156.489 4 cm 23.2 kg/m2 01066.0 5 g 98.6 [degF] 92 % 92 % 13 /min 76 /min 118 mm[Hg] 64 mm[Hg] JEREMY DRUMMOND RN [facility] 4 13:38:17 Social History Question Answer Notes LastModified by Organizat ion Details LastModified Time Tobacco Smoking Status Never Smoker Sharon Jacobs RN [facility], [facility] 06/01/2024 11:37:10 What Was The Date Of Your Most Recent Tobacco Screening? 06/01/2024 [email or web address] Information not available 06/01/2024 Sex: Female Functional Status None recorded. Mental Status None recorded. Family History Relationship Description Onset Age of this Age Resolved Age Notes Notes:*Problem: Father- HTN Mother- Cancer Grandmother- Cancer [id number] Heart Attacks Medical History No medical history recorded. Gynecological HistoryNo gynecological history recorded. Obstetrics History GPAL:G 0 P 0 0 0 0 Immunizations Vaccine Type Date Status Provider Name and Address Organization Details Recorded Time zoster live 06/02/2022 completed Not Available [facility] 09/23/2023 05:45:58 Td(adult) unspecified formulation 11/14/2014 completed Not Available [facility] 09/23/2023 05:45:58 Influenza, high-dose, quadrivalent, PF 08/10/2021 completed Not Available [facility] 09/23/2023 05:45:58 Influenza, high-dose, quadrivalent, PF 08/13/2022 completed Not Available [facility] 09/23/2023 05:45:59 COVID-19, mRNA, LNP-S, PF, 100 mcg/0.5mL dose or 50 mcg/0.25mL dose 12/19/2020 completed Not Available [facility] 09/23/2023 05:45:59 COVID-19, mRNA, LNP-S, PF, 100 mcg/0.5mL dose or 50 mcg/0.25mL dose 01/16/2021 completed Not Available [facility] 09/23/2023 05:45:59 COVID-19, mRNA, LNP-S, PF, 100 mcg/0.5mL dose or 50 mcg/0.25mL dose 05/14/2022 completed Not Available [facility] 09/23/2023 05:46:00 COVID-19, mRNA, LNP-S, PF, 100 mcg/0.5mL dose or 50 mcg/0.25mL dose 09/17/2021 completed Not Available [facility] 09/23/2023 05:46:00 COVID-19, mRNA, LNP-S, bivalent, PF, 30 mcg/0.3 mL dose 04/01/2023 completed Not Available [facility] 09/23/20 05:46:00 COVID-19, mRNA, LNP-S, bivalent, PF, 30 mcg/0.3 mL dose 09/09/2022 completed Not Available [facility] 09/23/20 05:46:00 pneumococcal polysaccharide PPV23 09/16/2018 completed Not Available [facility] 2022 05:46:00 influenza, unspecified formulation 09/12/2019 completed Not Available [facility] 09/23/2023 05:46:01 influenza, unspecified formulation 09/14/2020 completed Not Available [facility] 09/23/2023 05:46:01 Influenza, high-dose, quadrivalent, PF 08/19/2023 completed Not Available [facility] 11/25/2023 05:31:39 COVID-19, mRNA, LNP-S, PF, shweta-sucrose, 30 mcg/0.3 mL 09/20/2023 completed Not Available [facility] 11/25/2023 05:31:39 Past Encounters Encounter ID Performer Location Encounter Start Date Encounter Closed Date Diagnosis/Indication Diagnosis SNOMED-CT Code [id number] SINAN LYONS PA-C [facility] [address] [place] [address] 05/03/2024 13:28:40 05/03/2024 13:54:02 Ingrowing toenail [id number] Health Concerns Section Related Observation LastModified by Organization Detai ls LastModified Time None Recorded Concern Status LastModified by Organization Details LastModified Time None Recorded Payers Encounter Date Sequence Insurance Name Policy Number Policy Wyatt Covered Member ID Wyatt Member ID Guarantor Name 05/03/2024 1 [facility] (MEDICARE REPLACEMENT/A DVANTAGE - PPO) [id number] Sadia Araujo [id number] Sadia Araujo Notes Date Note Type Note Provider Name and Address Organization Details Recorded Time 05/03/2024 text/html HPI Notes: Pain on the outside of her left great toe for the past week or so. History of ingrown toenails. Painful to wear most shoes. [address] [place], [address], [facility]. 05/03/2024 13:58:32 OBGyn Episode No OBEpisode recorded.
--- OUTSIDE RECORDS SUMMARY | 2024-06-12 02:38 | XMS_ITS | Encounter Summary ---
Author Organization [facility] Address [address] [place] [address] Care Team Providers Care Oil Scout Name Role Phone Unavailable Primary Care Provider Unavailabl e Encounter Details Date Type Department Care Team (Late st Contact Info) Description 09/29/2022 Lab Requisition [facility] Pathology & Laboratory Medicine - [facility] [address] [place] [address] Outr Resulting Lab, Provider Social History Tobacco [...] Procedure Name Priority Date/Time Associated Diagnosis Comments PHOSPHOROUS, URINE 24HR Routine 09/29/2022 12:02 EST documented in this encounter Results * (ABNORMAL) PHOSPHORUS, URINE 24HR (09/29/2022 12:02 EST) Phosphorous, Urine 17.2 See Note mg/dL 09/30/2022 9:11 EST [facility] Comment: NOTE: Reference range not established Phosphorous, Urine 24 hr 0.3(L) 0.4 - 1.3 g/24hrs 09/30/2022 9:11 EST [facility] Urine Volume 1,900 mL 09/30/2022 9:11 EST [facility] Urine Collection Period 24.0 Hours 09/30/2022 9:11 [facility] Urine 24 HOUR URINE SPECIMEN / Unknown 09/29/2022 12:02 EST 09/29/2022 22:00 EST Provider Outr Resulting Lab URINALYSIS O RDERABLES [facility] [address] [place] [address] documented in this encounter Visit Diagnoses Not on filedocumented in this encounter
== END ==
PROVIDERS: PCP Physician Assistant; Visit Provider Physician Assistant
DX: N28.9 Disorder of kidney and ureter, unspecified (principal); N28.89 Other specified disorders of kidney and ureter
CPT/HCPCS: 76770

== ENCOUNTER → 2024-06-20 01:54 | Outpatient (CLI) | payer MEDICARE, SELFPAY ==
--- NOTE | 2024-06-20 07:15 | DI.RAD_ITS ---
Exam(s) XR FOOT LT COMPLETE XR HEEL LT OS CALCIS EXAM: XR FOOT LT COMPLETE CLINICAL HISTORY: heel pain,peroneal tendinitis lt leg,m76.72. TECHNIQUE: 2D digital imaging was performed. Three views of the foot. Two views of the heel COMPARISON: CR XR FOOT LT COMPLETE from 05/30/2024 CR XR HEEL LT OS CALCIS from 06/20/2024 FINDINGS: BONES: No acute fracture is present. No bony destructive lesion is seen. Heel spurs. JOINTS: No dislocation present. Pes planus. Mild degenerative changes in the intertarsal and tarsa l metatarsal joints. Minimal degenerative changes of the metatarsal phalangeal joint. Hammertoe def ormities. Degenerative changes noted at the sesamoid 1st metatarsal head. SOFT TISSUE: Vascular calcifications. IMPRESSION: Stable degenerative changes. DATA REPOSITORY: RADIATION DOSE DELIVERED:
== END ==
PROVIDERS: PCP Physician Assistant; Visit Provider Podiatrist
DX: M76.72 Peroneal tendinitis, left leg (principal); M84.375A Stress fracture, left foot, initial encounter for fracture; M19.072 Primary osteoarthritis, left ankle and foot
CPT/HCPCS: 73630; 73650

== ENCOUNTER 2024-07-11 01:58 | Outpatient (CLI) | payer MEDICARE, SELFPAY ==
--- NOTE | 2024-07-11 14:45 | DI.MRI_ITS ---
Exam(s) MR LOWER JOINT LT WO EXAM: MR LOWER JOINT LT WO CLINICAL HISTORY: Stress fracture left heel,peroneal tendinitis lt leg, pain lt heel, m79.672 TECHNIQUE: Multiplanar multisequence MRI was performed without intravenous contrast. COMPARISON: CR XR HEEL LT OS CALCIS from 05/30/2024 CR XR FOOT LT COMPLETE from 06/20/2024 CR XR HEEL LT OS CALCIS from 06/20/2024 FINDINGS: BONES/JOINTS: Mild edema in the calcaneus with some sparing of the anterior process and sustentaculum . Low signal line in the superior posterior calcaneus seen as an area of sclerosis on plain films, c onsistent with subacute fracture. Heel spurs. Dorsal talar beak. No suspicious bone lesions identi fied. The talar dome is smooth. The ankle mortise is maintained. No joint effusion is present. LIGAMENTS: The tibiofibular and calcaneofibular ligaments are intact. The talofibular ligaments are i ntact. The deltoid ligament is intact. The syndesmosis is unremarkable. Sinus tarsi is normal. MUSCULOTENDINOUS STRUCTURES: Achilles tendon: Unremarkable. Plantar fascia: Unremarkable. Anterior Extensor tendons: Unremarkable. Posterior Tibialis: Unremarkable. Flexor Digitorum longus: Unremarkable. Flexor Hallucis longus: Unremarkable. Peroneus longus: Unremarkable. Peroneus brevis:Unremarkable. SOFT TISSUES: Edema. IMPRESSION: Subacute fracture of the posterior superior calcaneus with mild residual calcaneal edema. No evidence of peroneal tendinitis. DATA REPOSITORY:
== END 2024-07-11 02:18 ==
LOC: DI 01:58
PROVIDERS: PCP Physician Assistant; Visit Provider Podiatrist
DX: M84.375A Stress fracture, left foot, initial encounter for fracture (principal); X58.XXXA Exposure to other specified factors, initial encounter
CPT/HCPCS: 36415; 73721; 80048

== ENCOUNTER 2024-07-11 15:02 | Outpatient (CLI) | payer MEDICARE, SELFPAY ==
[2024-07-11 15:35] LABS: Anion Gap 14.4 mmol/L (3-11); BUN 21 mg/dL (7-18); CO2 19.6 mmol/L (21.0-32.0); CREATININE 1.8 mg/dL (0.55-1.02); Calcium 8.8 mg/dL (8.5-10.1); Chloride 102 mmol/L (98-107); Estimated GFR 28.48 (mL/min/1.73m2); Glucose 118 mg/dL (74-106); Sodium 136 mmol/L (136-145)
[2024-07-11 15:48] LABS: Potassium 2.9 mmol/L (3.5-5.1)
== END 2024-07-11 15:03 | disposition home or self-care (01) ==
LOC: LBO 15:02
PROVIDERS: PCP Physician Assistant; Visit Provider Physician Assistant
DX: N28.9 Disorder of kidney and ureter, unspecified (principal)
CPT/HCPCS: 36415; 80048

== ENCOUNTER → 2024-07-18 12:56 | Outpatient (BNVA) | payer MEDICARE, SELFPAY | PROVIDERS: PCP Physician Assistant; Referring Provider Physician Assistant; Visit Provider Podiatrist | DX: L60.0 Ingrowing nail (principal); M84.375A Stress fracture, left foot, initial encounter for fracture; M76.72 Peroneal tendinitis, left leg; M79.675 Pain in left toe(s) | CPT/HCPCS: 99213 ==

== ENCOUNTER 2024-12-04 16:54 | Outpatient (REF) | payer MEDICARE, SELFPAY ==
[2024-12-04 16:19] LABS: HGB 12.4 g/dL (11.2-15.7); MCH 27.4 pg (27.0-33.0); MCHC 32.6 % (32.0-36.0); MCV 84 fL (80-95); MPV 9.4 fL (8.0-11.0); Platelet Count 335 10^3/uL (130-400); RBC 4.53 10^6/uL (3.93-5.22); RDW 14.8 % (11.7-14.6); RDW-SD 44.9 fL; WBC 11.86 10^3/uL (4.4-10.8)
[2024-12-04 16:48] LABS: Anion Gap 13.1 mmol/L (3-11); BUN 11 mg/dL (7-18); CO2 21.9 mmol/L (21.0-32.0); CREATININE 1.8 mg/dL (0.55-1.02); Calcium 9.8 mg/dL (8.5-10.1); Chloride 99 mmol/L (98-107); Estimated GFR 28.31 (mL/min/1.73m2); Glucose 113 mg/dL (74-106); Potassium 4.2 mmol/L (3.5-5.1); Sodium 134 mmol/L (136-145)
== END 2024-12-04 16:55 | disposition home or self-care (01) ==
LOC: NCHCN 16:54
PROVIDERS: PCP Physician Assistant; Visit Provider Physician Assistant
DX: D64.9 Anemia, unspecified (principal)
CPT/HCPCS: 80048; 85027

== ENCOUNTER 2025-02-15 08:39 | Observation (INO) | payer MEDICARE, SELFPAY ==
[2025-02-15] VITALS (10 sets, daily range): BP systolic 100–139; BP diastolic 41–90; PULSE 62–90; RESP 16–21; TEMP 36.8–37.1; O2SAT 93–97
--- NOTE | 2025-02-15 08:57 | ED.GENADUL_ITS ---
Discharge Plan Disposition Patient Disposition: Admit to [facility] Condition: Stable Discharge Details Clinical Impression: Multiple closed fractures of ribs of right side Primary Care Provider: Sinan Varma ED Provider: Juan Carlos Richards Home Meds and New Rx's Prescriptions: No Action potassium chloride 20 mEq tablet extended release 20 meq PO DAILY Prolia 60 mg/mL syringe 60 mg subcut [id number] amlodipine 10 mg tablet 5 mg PO DAILY Patient Comments: TAKE ONE TABLET BY MOUTH EVERY DAY Multi For Her 18 mg iron-600 mcg-40 mcg Capsule 1 tab-cap PO DAILY HPI General Date/Time Provider Initiated Documentation: 02/15/25 08:57 . HPI Narrative: 79 year-old female presents to ED today by wheelchair with her with a chief complaint of fall in the bathroom X2 on - first fall striking her R flank on edge of bathtub, and a subsequent fall with minor L wrist skin tear. Quality described as severe R flank pain, states its OK when laying still, no radiation to shortness of breath, cough, fever, hematuria, urinary retention, bowel incontinence, numbness/tingling/weakness to lower extremities, numbness to genitals, abdominal pain, chest pain, palpitations prior to fall, headstrike or LOC. Severity is described as 8/10 with certain movements. Palliating factors include nothing specific attempted. Provoking factors include movement. Events l eading up to the incident/Associated Symptoms: Patient had a basal cell carcinoma removed from her L cheek on prior to fall, states the bulky bandage still present on her lower cheek is obstruction her lower visual guerrero and equates this to reason she fell. Patient not anticoagulated. Related Data Home Medications ?Medication ?Instructions ?Recorded ?Confirmed amlodipine 10 mg tablet 5 mg PO DAILY 03/24/22 02/15/25 [id number] fumarate 18 1 tab-cap PO DAILY 03/24/22 02/15/25 mg-FA 600 mcg-vit K 40 mcg capsule (Multi For Her) potassium chloride 20 mEq 20 meq PO DAILY 04/24/22 02/15/25 tablet,extended release denosumab 60 mg/mL subcutaneous 60 mg subcut [id number] 02/15/25 02/15/25 syringe (Prolia) Allergies Allergy/AdvReac Type Severity Reaction Status Date / Time cefuroxime (From Ceftin) Allergy Unverified 04/24/22 09:59 Penicillins Allergy Unverified 04/24/22 09:59 General Stated Complaint: Fall/Non TraumaCriteria MARCUS: 3 Review of Systems All systems reviewed & are unremarkable except as noted in HPI and below Exam Narrative Exam Narrative: GENERAL APPEARANCE: Well-nourished, non-toxic, awake and alert, atraumatic, no acute distress. SKIN: Warm, pink, dry, intact, without rashes/lesions/ulcerations. HEAD: Normocephalic, atraumatic, normal hair distribution for gender/age. EYES: Normal conjunctiva, no exudates on lids/lashes. ENT: Nares patent, no circumoral cyanosis, no facial swelling NECK: Supple, trachea midline, painless cervical ROM, no midline cervical vertebral tenderness. LUNGS/CHEST: Lungs CTA bilaterally- no focally diminished or absent lung sounds, non-labored respirations, normal A/P diameter, symmetrical expansion, no chest wall deformity, R lower posterior rib tenderness with crepitus, no ecchymosis, no paradoxical motion or flail segment HEART (CV/PV): Regular rate and rhythm without murmur, no peripheral edema, no JVD. ABDOMEN: Soft, non-distended, no guarding, no R-sided abdominal tenderness or rigidity. MSK: Normal ROM, no swelling/deformity to bilateral UEs or LEs, moving all extremities without weakness, no cyanosis, spine midline with tenderness upper lumbar/lower thoracic and to R paraspinal region, normal curvature. NEURO: Mental Status AAOx4 - alert to person, place, time, events No facial droop, no forehead involvement. Motor: No focal weakness - strength 5/5 in bilateral UEs and LEs, proximal and distal, symmetric. Sensory: sensation intact to light touch globally. Gait NT. PSYCH: euthymic, cooperative, pleasant, appropriate speech Course Vital Signs Vital signs: Vital Signs Temperature 36.8 C 02/15/25 08:42 Pulse 88 02/15/25 08:42 Respiratory Rate 20 02/15/25 08:42 Blood Pressure 137/41 L 02/15/25 08:42 Pulse Oximetry 94 02/15/25 08:42 Temperature 36.8 C 02/15/25 08:42 Temperature Source Temporal Artery Scan 02/15/25 08:42 Pulse 88 02/15/25 08:42 Respiratory Rate 20 02/15/25 08:42 Blood Pressure 137/41 L 02/15/25 08:42 Blood Pressure Position Supine 02/15/25 08:42 Pulse Oximetry 94 02/15/25 08:42 Oxygen Delivery Method Room Air 02/15/25 08:42 Oxygen Flow Rate 0 02/15/25 08:42 Pain Level 8 02/15/25 08:42 Medical Decision Making This dictation utilizes [id number] dictation software and may contain unedited grammatical errors. 79 year-old female presents to ED today by wheelchair with her with a chief complaint of fall in the bathroom X2 on - first fall striking her R flank on edge of bathtub, and a subsequent fall with minor L wrist skin tear. Quality described as severe R flank pain, states its OK when laying still, no radiation to shortness of breath, cough, fever, hematuria, urinary retention, bowel incontinence, numbness/tingling/weakness to lower extremities, numbness to genitals, abdominal pain, chest pain, palpitations prior to fall, headstrike or LOC. Severity is described as 8/10 with certain movements. Palliating factors include nothing specific attempted. Provoking factors include movement. Events leading up to the incident/Associated Symptoms: Patient had a basal cell carcinoma removed from her L cheek on prior to fall, states the bulky bandage still present on her lower cheek is obstruction her lower visual guerrero and equates this to reason she fell. Patients' medical history: States history of compression fracture in remote past. Family and social history: No EtOH use, lives at home with her , no recent travel or sick contacts. Pertinent exam findings / vital signs include tenderness to the posterior right lower ribs in the upper lumbar and lower thoracic paraspinal area, no hip tenderness bilaterally, neurovascularly intact to bilateral lower extremities, lungs CTA without focally diminished or absent lung sounds, no right-sided abdo tess tenderness. Differential / pathologies of concern include rib fracture, vertebral fracture. Diagnostic studies of: -CT Chest wo, CT T & L-Spine wo. Interventions of: -1g PO tylenol, 400mg PO ibuprofen. -Consult with Surgery Dr. Engel - admit for trauma criteria 4 contiguous rib fractures @ 1145. -Paged anesthesia for rib block @ 1205 ED Course/Assessment/Plan: 79-year-old female presents after falling on Tuesday striking the edge of the bathtub with right flank pain, CT reveals 4 contiguous rib fractures on the right side including displacement of the 10th rib, question pulmonary contusion versus infiltrate early pneumonia, I discussed this with the patient she was reluctant to be admitted but did agree, consulted with Dr. Engel of surgery who admits the patient, I did page anesthesia to come give her a rib block. Findings not consistent with pneumothorax, cauda equina, neurovascular compromise, abdominal organ injury. Disposition of multiple closed fractures of ribs of right side. Patient verbalized understanding of the plan and return to ED criteria and engaged in shared decision making. Medical Records Medical records reviewed: Yes I reviewed the patient's medical records. Imaging Data Radiologic Study: Attestation: I personally reviewed and interpreted this imaging study as follows: Imaging: CT Scan Radiologist's impression: EXAM: CT CHEST WO CLINICAL HISTORY: R lower rib fx?. TECHNIQUE: Multi planar reconstructions were performed. CONTRAST MATERIAL: None COMPARISON: CT CT ABDOMEN PELVIS WO from 04/24/2022 FINDINGS: CHEST: OSSEOUS: There is a mildly displaced fracture of the anterolateral aspect the right 8th rib. Also adjacent fracture in the anterior aspect of the right 9th rib.. There is a mildly displaced fracture of the posterior aspect of the right 10th rib. Also subtle fracture posterior aspect of the right 11th rib. No left rib fractures identified. LUNGS: Significant area of infiltrates throughout the right upper lobe involving both anterior and posterior segments of the right upper lobe. Also infiltrate noted in superior segment of the right lower lobe. Mild increased markings are noted in the posterior basal segment of the right lower lobe. No significant pleural effusion. Right mainstem bronchus is clear. On the opposite side there is mild fissure adjacent infiltrate in the apical posterior segment of the left upper lobe and mild increased markings in the lateral and posterior basal segments of the left lower lobe. No pleural effusion. Left mainstem bronchus is clear. MEDIASTINUM: No sternal fractures nor mediastinal hematoma evident. No obvious hilar nor mediastinal adenopathy. Small-moderate size retrocardiac hiatal hernia noted. CARDIAC: Cardiomegaly. No pericardial effusion. Coronary artery calcification noted. The diameter of the ascending thoracic aorta is enlarged, measuring 4.1 cm.The diameter of the aortic arch is slightly prominent measuring 2.8 cm. The diameter of the descending thoracic aorta is also slightly prominent. VISUALIZED UPPER ABDOMEN:Nephrolithiasis both kidneys. No adrenal findings. No splenomegaly. . IMPRESSION: 1. There fractures of the right 8th, 9th, 10th, and 11th ribs. The fracture in the posterior aspect of the 10th rib is displaced. There is no pneumothorax. 2. There is significant infiltrate in the right upper lobe and superior segment of the right lower lobe. No pleural effusion. There is only mild infiltrate in the opposite-left lung which is in the apical posterior segment of the left upper lobe. There is no left pleural effusion. 3. Cardiomegaly and dilated ascending thoracic aorta which exhibits diameter 4.1 cm. 4. Bilateral nephrolithiasis incidentally noted. Findings called by myself to ER provider 02/15/2025 at 11:30 a.m. Radiologic Study #2: Attestation: I personally reviewed and interpreted this imaging study as follows: Imaging: CT Scan Radiologist's impression: EXAM: CT LUMBAR SPINE WO CLINICAL HISTORY: lumbar back pain. TECHNIQUE: Imaging Protocol: Axial computed tomography images with coronal and sagittal reformatted images were created and reviewed COMPARISON: CT CT ABDOMEN PELVIS WO from 04/24/2022 FINDINGS: OSSEOUS: There is a mild-moderate wedge compression fracture of L1 which is not new but has lost slight further height when compared to CT scan of 04/24/2022. At this level there is posterior bulging of the posterior upper cortex which is bulging posteriorly 4.7 mm. However, there does not appear to be tight spinal canal stenosis at this level. No acute fractures. No listhesis. INDIVIDUAL LEVELS: T12-L1:No disc herniation nor canal stenosis. Facet joints unremarkable. No foraminal stenosis. L1-2: No disc herniation nor canal stenosis. Facet joints unremarkable. No foraminal stenosis. L2-3: No disc herniation nor canal stenosis. Facet joints unremarkable. No Foraminal stenosis L3-4: Normal disc height. Broad annular bulging but without a distinct focal disc herniation. Mild central canal stenosis due to broad annular bulging and short AP dimensions of the pedicles. There are only mild degenerative changes in the facet joints. There is no significant foraminal stenosis. L4-5: Vacuum phenomena M seen within the disc space. There is asymmetric narrowing of the right-side of the disc space. Annular bulging without a distinct focal disc herniation. Mild central canal stenosis. Moderate facet arthropathy. Mild bilateral foraminal stenosis. L5-S1: This level exhibits advanced disc space narrowing and vacuum phenomenon. Mild annular bulging without a dominant disc herniation. Central canal dimensions are lower normal. Moderate degenerative changes are seen in the facet joints. There is significant foraminal stenosis on the left side at this level which is vertical foraminal stenosis due to the asymmetric disc height loss on the left side. Only mild foraminal stenosis noted on the right side. The visualized sacroiliac joints and sacrum appear unremarkable. PARASPINAL SOFT TISSUES: Calculi are noted in both kidneys. IMPRESSION: 1. Chronic L1 compression fracture as described above. No acute fractures. No listhesis. 2. Degenerative disc disease as described above. There is mild central canal stenosis at the L3-4 and L4-5 levels. 3. There is significant foraminal stenosis on the left side at L5-S1 level with impression upon the exiting left nerve root at this level. Radiologic Study #3: Attestation: I personally reviewed and interpreted this imaging study as follows: Imaging: CT Scan Radiologist's impression: EXAM: CT THORACIC SPINE RECONS CLINICAL HISTORY: RECON only. TECHNIQUE: Imaging Protocol: Axial computed tomography images with coronal and sagittal reformatted images were created and reviewed. CONTRAST MATERIAL: Intravenous: None COMPARISON: CT CT CHEST WO from 02/15/2025 FINDINGS: OSSEOUS: No evidence of fracture of the thoracic vertebra. No listhesis. No disc space narrowing. Nonacute compression fracture of L1 vertebral body noted; discussed on lumbar spine report today. At this level there is 4-5 mm displacement of the posterior superior cortex of L1 vertebral body with some impression upon the thecal sac at this level but no tight spinal canal stenosis. Spinal canal above this level is intact. No facet malalignment. IMPRESSION: No fractures evident in the thoracic spinal column. Nonacute fracture of L1 vertebral body again noted, discussed on lumbar spine dictation. See that separate report. Lung infiltrates noted. See separate report Quality:SDOH Health Related Social Needs: No Data to Display PFSH All Active Problems (Updated 02/15/25 @ 11:53 by YENIFER Vivar) Multiple closed fractures of ribs of right side (Acute) Pain of left heel (Acute) Pain around toenail, left foot (Acute) Peroneal tendinitis, left leg (Acute) Stress fracture of left calcaneus (Acute) Surgical History H/O section Social History Smoking/Tobacco Use Status: Never Smoking risk assessment performed?: Yes Alcohol Intake: current Alcohol Intake frequency: 3 or more drinks per day Alcohol type: beer Drug use: Never Substance use type: does not use Details: states she drinks a few times a week Housing: house Do you feel safe at home: Yes Do you feel safe in your relationship?: Yes
--- NOTE | 2025-02-15 09:00 | DI.CT_ITS ---
Exam(s) CT CHEST WO EXAM: CT CHEST WO CLINICAL HISTORY: R lower rib fx?. TECHNIQUE: Multi planar reconstructions were performed. CONTRAST MATERIAL: None COMPARISON: CT CT ABDOMEN PELVIS WO from 04/24/2022 FINDINGS: CHEST: OSSEOUS: There is a mildly displaced fracture of the anterolateral aspect the right 8th rib. Also ad jacent fracture in the anterior aspect of the right 9th rib.. There is a mildly displaced fracture o f the posterior aspect of the right 10th rib. Also subtle fracture posterior aspect of the right 11t h rib. No left rib fractures identified. LUNGS: Significant area of infiltrates throughout the right upper lobe involving both anterior and po sterior segments of the right upper lobe. Also infiltrate noted in superior segment of the right low er lobe. Mild increased markings are noted in the posterior basal segment of the right lower lobe. No significant pleural effusion. Right mainstem bronchus is clear. On the opposite side there is mild fissure adjacent infiltrate in the apical posterior segment of the left upper lobe and mild increased markings in the lateral and posterior basal segments of the left lower lobe. No pleural effusion. Left mainstem bronchus is clear. MEDIASTINUM: No sternal fractures nor mediastinal hematoma evident. No obvious hilar nor mediastinal adenopathy. Small-moderate size retrocardiac hiatal hernia noted. CARDIAC: Cardiomegaly. No pericardial effusion. Coronary artery calcification noted. The diameter of the ascending thoracic aorta is enlarged, measuring 4.1 cm.The diameter of the aortic arch is slig htly prominent measuring 2.8 cm. The diameter of the descending thoracic aorta is also slightly prom inent. VISUALIZED UPPER ABDOMEN:Nephrolithiasis both kidneys. No adrenal findings. No splenomegaly. . IMPRESSION: 1. There fractures of the right 8th, 9th, 10th, and 11th ribs. The fracture in the posterior aspect of the 10th rib is displaced. There is no pneumothorax. 2. There is significant infiltrate in the right upper lobe and superior segment of the right lower lo be. No pleural effusion. There is only mild infiltrate in the opposite-left lung which is in the ap ical posterior segment of the left upper lobe. There is no left pleural effusion. 3. Cardiomegaly and dilated ascending thoracic aorta which exhibits diameter 4.1 cm. 4. Bilateral nephrolithiasis incidentally noted. Findings called by myself to ER provider 02/15/2025 at 11:30 a.m. RADIATION DOSE DELIVERED: 147.45mGy.cm Total DLP DATA REPOSITORY: All CT scans at this facility are submitted to the National Radiology Data Registry (NRDR) Dose Index Registry (DIR) with the [employer] ([employer]). RADIATION OPTIMIZATION: All CT scans at this facility use at least one of these dose optimization te chniques: automated exposure control; mA and/or kV adjustment per patient size (includes targeted exa ms where dose is matched to clinical indication); or iterative reconstruction.
--- NOTE | 2025-02-15 09:00 | DI.CT_ITS ---
Exam(s) CT LUMBAR SPINE WO EXAM: CT LUMBAR SPINE WO CLINICAL HISTORY: lumbar back pain. TECHNIQUE: Imaging Protocol: Axial computed tomography images with coronal and sagittal reformatted images were created and reviewed COMPARISON: CT CT ABDOMEN PELVIS WO from 04/24/2022 FINDINGS: OSSEOUS: There is a mild-moderate wedge compression fracture of L1 which is not new but has lost slig ht further height when compared to CT scan of 04/24/2022. At this level there is posterior bulging o f the posterior upper cortex which is bulging posteriorly 4.7 mm. However, there does not appear to be tight spinal canal stenosis at this level. No acute fractures. No listhesis. INDIVIDUAL LEVELS: T12-L1:No disc herniation nor canal stenosis. Facet joints unremarkable. No foraminal stenosis. L1-2: No disc herniation nor canal stenosis. Facet joints unremarkable. No foraminal stenosis. L2-3: No disc herniation nor canal stenosis. Facet joints unremarkable. No Foraminal stenosis L3-4: Normal disc height. Broad annular bulging but without a distinct focal disc herniation. Mild central canal stenosis due to broad annular bulging and short AP dimensions of the pedicles. There are only mild degenerative changes in the facet joints. There is no significant foraminal stenosis. L4-5: Vacuum phenomena M seen within the disc space. There is asymmetric narrowing of the right-ga e of the disc space. Annular bulging without a distinct focal disc herniation. Mild central canal s tenosis. Moderate facet arthropathy. Mild bilateral foraminal stenosis. L5-S1: This level exhibits advanced disc space narrowing and vacuum phenomenon. Mild annular bulgin g without a dominant disc herniation. Central canal dimensions are lower normal. Moderate degenerat angela changes are seen in the facet joints. There is significant foraminal stenosis on the left side a t this level which is vertical foraminal stenosis due to the asymmetric disc height loss on the left side. Only mild foraminal stenosis noted on the right side. The visualized sacroiliac joints and sacrum appear unremarkable. PARASPINAL SOFT TISSUES: Calculi are noted in both kidneys. IMPRESSION: 1. Chronic L1 compression fracture as described above. No acute fractures. No listhesis. 2. Degenerative disc disease as described above. There is mild central canal stenosis at the L3-4 an d L4-5 levels. 3. There is significant foraminal stenosis on the left side at L5-S1 level with impression upon the e xiting left nerve root at this level. RADIATION DOSE DELIVERED: 487.52mGy.cm Total DLP DATA REPOSITORY: All CT scans at this facility are submitted to the National Radiology Data Registry (NRDR) Dose Index Registry (DIR) with the [employer] ([employer]). RADIATION OPTIMIZATION: All CT scans at this facility use at least one of these dose optimization te chniques: automated exposure control; mA and/or kV adjustment per patient size (includes targeted exa ms where dose is matched to clinical indication); or iterative reconstruction.
--- NOTE | 2025-02-15 09:10 | DI.CT_ITS ---
Exam(s) CT THORACIC SPINE RECONS EXAM: CT THORACIC SPINE RECONS CLINICAL HISTORY: RECON only. TECHNIQUE: Imaging Protocol: Axial computed tomography images with coronal and sagittal reformatted images were created and reviewed. CONTRAST MATERIAL: Intravenous: None COMPARISON: CT CT CHEST WO from 02/15/2025 FINDINGS: OSSEOUS: No evidence of fracture of the thoracic vertebra. No listhesis. No disc space narrowing. Nonacute compression fracture of L1 vertebral body noted; discussed on lumbar spine report today. At this level there is 4-5 mm displacement of the posterior superior cortex of L1 vertebral body with s ome impression upon the thecal sac at this level but no tight spinal canal stenosis. Spinal canal ab ove this level is intact. No facet malalignment. IMPRESSION: No fractures evident in the thoracic spinal column. Nonacute fracture of L1 vertebral body again not ed, discussed on lumbar spine dictation. See that separate report. Lung infiltrates noted. See separate report RADIATION DOSE DELIVERED: 147.45mGy.cm Total DLP DATA REPOSITORY: All CT scans at this facility are submitted to the National Radiology Data Registry (NRDR) Dose Index Registry (DIR) with the [employer] ([employer]). RADIATION OPTIMIZATION: All CT scans at this facility use at least one of these dose optimization te chniques: automated exposure control; mA and/or kV adjustment per patient size (includes targeted exa ms where dose is matched to clinical indication); or iterative reconstruction.
[2025-02-15] MEDS: Ibuprofen 400 MG TAB PO (09:12)
[2025-02-15] MEDS: Acetaminophen 500 MG TAB 1000 MG PO (09:12)
--- NOTE | 2025-02-15 09:20 | NUR.NOTE ---
Nursing Note:During triage patient states she does not know what meds she takes, her allergies, or how much she weighs. Spouse at bedside also does not know. Request to Dr. Varma's office (PCP) for history.
--- NOTE | 2025-02-15 12:53 | W.ANESNERVE ---
Nerve Block Single Injection Procedure Date and Time Date Performed: 02/15/25 Procedure Start: 12:45 Location Where Procedure Performed Procedure Location: Emergency Department Reason Performed: Acute Pain Management (Right 8, 9, 10, 11 rib fractures making it difficult to cough, deep breath, and making respiration uncomfortable. ) Pain Diagnosis: Rib Pain Requesting Provider: Juan Carlos Richards Timeout Performed Timeout Performed: Yes Monitoring Used ECG, Blood Pressure and SpO2 Sterility Sterility: Hand Hygiene, Surgical Cap, Surgical Mask, Sterile Gloves and Chlorhexidine Sedation Given During Procedure Sedation Given (Indicate Dose Given): No Sedation given Patient Mental Status Patient Mental Status: Awake Nerve Block 1st Nerve Block: Laterality: Right Block Type: Erector Spinae (Upper) Ultrasound Image Saved?: Yes Needle / Catheter Used: 100mm SonoPlex II Local Anesthetic Bolus (Indicate Dose Given): Lidocaine used for local infiltration of skin, Bupivacaine 0.25% Dose:: 15 mL and Exparel Dose:: 10 mL Additives (Indicate Dose Given): None Ultrasound: Sterile probe cover and gel used Nerve Stimulator: Not Used Paresthesia: None Procedure Tolerated: No Complications Procedure Outcome: Successful Procedure Comment: Pt fell at home earlier today and broken her right 8, 9, 10, 11 ribs. Currently in the ED with significant discomfort. Brief discussion of health history yielded no contraindications to a block. Discussed ESPB and risks such as infection, bruising, nerve injury, and block failure. Pt would like to proceed. Performed By: Modesto Rock
--- NOTE | 2025-02-15 13:21 | HPE_ITS ---
Date of service: 02/15/25 Time of Service: 13:21 Assessment and Plan Assessment and plan (1) Multiple closed fractures of ribs of right side: Status: Acute Assessment and plan: Despite having 4 contiguous rib fractures, Sadia looks relatively comfortable (although she did just undergo erector spinae block with anesthesia). The parenchymal changes on the lung are more concerning, especially given the timing of this. Certainly, raises suspicion for pneumonia, but absent any significant productive cough, I suppose that is less likely. At the very least I will check a CBC and trend the white blood cell count over the next 24 hours. Also plan to repeat a chest x-ray tomorrow to reassess the infiltrate. Hopefully with some pulmonary toileting after better pain control, that will help aerate the lung and resolve the infiltrate. Currently, she is only able to generate about 500 to 750 mL with a spirometer. Will titrate her other analgesics, and see if we can improve upon that with scheduled pulmonary toileting and incentive spirometry. History of Present Illness History of Present Illness Chief Complaint: Right-sided rib fractures N arrative: Sadia is 79 years old. She underwent excision of a basal cell carcinoma from the left upper lip this past Tuesday. After she got home, she had some difficulty walking, which she attributes to perhaps some pain medication, and the dressing on her cheek making it difficult to see. She had a standing level fall and struck the right side of her body against the bathtub and toilet. She felt pain in the right chest. She reports another fall not long thereafter when she struck her left wrist. She did okay through the evening time, but has had increasing chest pain over the past 2 days with a little bit of exertional dyspnea. Pain is worse when she coughs and moves around. She feels better when she holds still. She has nonproductive cough. She underwent a CT scan of the chest that demonstrated right-sided 8th through 11th rib fractures. There is no pneumothorax. There is some infiltrate on the right side, it is unclear if that is pulmonary parenchymal contusion or pneumonia. Past medical history includes hypertension. Review of Systems Constitutional Constitutional: Reports fatigue, Denies fever(s) and Reports lethargy Eyes Eyes: Reports system reviewed and no additional complaints, except as documented ENT Ears, Nose, Mouth, and Throat: Reports system reviewed and no additional complaints, except as documented, Reports dry mouth (Secondary to recent excision of left upper lip basal cell carcinoma) and Denies nasal discharge Cardiovascular Cardiovascular: Reports system reviewed and no additional complaints, except as documented and Reports dyspnea on exertion Respiratory Respiratory: Denies chest congestion, Denies cough, Reports pain on inspiration and Reports dyspnea on exertion Gastrointestinal Gastrointestinal: Reports system reviewed and no additional complaints, except as documented Genitourinary Genitourinary: Reports system reviewed and no additional complaints, except as documented Endocrine Endocrine: Reports fatigue PFSH All Active Problems (Updated 02/15/25 @ 11:53 by YENIFER Vivar) Multiple closed fractures of ribs of right side (Acute) Pain of left heel (Acute) Pain around toenail, left foot (Acute) Peroneal tendinitis, left leg (Acute) Stress fracture of left calcaneus (Acute) Surgical History H/O section Social History Smoking/Tobacco Use Status: Never Smoking risk assessment performed?: Yes Alcohol Intake: current Alcohol Intake frequency: 3 or more drinks per day Alcohol type: beer Drug use: Never Substance use type: does not use Details: states she drinks a few times a week Housing: house Do you feel safe at home: Yes Do you feel safe in your relationship?: Yes Meds Allergies and Home Medications Allergies Allergy/AdvReac Type Severity Reaction Status Date / Time cefuroxime (From Ceftin) Allergy Unverified 04/24/22 09:59 Penicillins Allergy Unverified 04/24/22 09:59 Home Medications ?Medication ?Instructions ?Recorded ?Confirmed ?Type amlodipine 10 mg tablet 5 mg PO DAILY 03/24/22 02/15/25 History zodklhnsj-all-xagm fumarate 18 1 tab-cap PO DAILY 03/24/22 02/15/25 History mg-FA 600 mcg-vit K 40 mcg capsule (Multi For Her) potassium chloride 20 mEq 20 meq PO DAILY 04/24/22 02/15/25 History tablet,extended release denosumab 60 mg/mL subcutaneous 60 mg subcut [id number] 02/15/25 02/15/25 History syringe (Prolia) Exam Const General: cooperative, comfortable and no acute distress Nutritional Appearance: average body habitus Orientation: alert, awake and oriented x3 Resp Effort & Inspection: normal respiratory effort and able to speak in complete sentences Auscultation: bronchial breath sounds and no wheezes Other: Tender over the right lower back with no crepitus Cardio Jugular venous pressure: no JVD Rate: regular rate Rhythm: regular rhythm Heart Sounds: S1 normal and S2 normal GI Inspection: normal to inspection and non-distended Palpation: soft and no guarding Percussion: normal to percussion Auscultation: normal bowel sounds Skin Other: Superficial skin tear on the left wrist Results Labs 02/15/25 13:16 02/15/25 13:16 Last Vital Signs Temp 98.2 F 02/15/25 08:42 Pulse 72 02/15/25 10:47 Resp 19 02/15/25 10:47 BP 139/60 02/15/25 10:47 Pulse Ox 97 02/15/25 10:47 PAWSS Have you Been Recently Intoxicated or Drunk Within the Last 30 days?: No Have you Ever Experienced Previous Episodes of Alcohol Withdrawal?: No Have you ever Experienced Withdrawal Seizures?: No Have you ever Experienced Delirium Tremens(DT)s?: No Have you ever undergone Alcohol Rehabilitation Treatment (i.e, inpt ot outpatient treatment programs)?: No Have you ever Experienced Blackouts?: No Have you ever Combined Alcohol with other Downers within the last 90 days?: No Have you ever Combined Alcohol with any other Substance of Abuse during the last 90 days?: No Positive Blood Alcohol level on Presentation? [PCS.BAL]: No Evidence of Increased Autonomic Activity (i.e. HR>120, tremor, sweating, agitation, nausea)?: No Result: 0 Time Spent Time spent with Patient: 40-54 minutes Time was spent: preparing to see the patient(eg.review tests), ordering medications,tests, procedures, indepentently interpreting results, counseling the patient and care coordination
[2025-02-15 13:49] LABS: Abs Immature Grans 0.07 10^3/uL (0.0-0.06); Absolute Basophil Count 0.09 10^3/uL (0.0-0.2); Absolute Eosinophil Count 0.28 10^3/uL (0.0-0.7); Absolute Lymphocyte Count 1.88 10^3/uL (1.2-3.4); Basophils % 0.5 %; Eosinophils % 1.6 %; HCT 32.6 % (36.0-46.0); HGB 10.6 g/dL (11.2-15.7); Immature Grans % 0.4 %; Lymphocytes % 10.7 %; MCHC 32.5 % (32.0-36.0); MCV 86 fL (80-95); MPV 9.2 fL (8.0-11.0); Monocytes % 5.7 %; Neutrophils % 81.1 %; Platelet Count 224 10^3/uL (130-400); RBC 3.79 10^6/uL (3.93-5.22); RDW-SD 47.3 fL; WBC 17.58 10^3/uL (4.4-10.8)
[2025-02-15 13:51] LABS: Absolute Neutrophil Count 14.26 10^3/uL (1.2-6.7)
[2025-02-15 13:59] LABS: Anion Gap 13.7 mmol/L (3-11); BUN 26 mg/dL (7-18); CO2 19.3 mmol/L (21.0-32.0); CREATININE 1.8 mg/dL (0.55-1.02); Calcium 8.3 mg/dL (8.5-10.1); Chloride 102 mmol/L (98-107); Estimated GFR 28.31 (mL/min/1.73m2); Glucose 101 mg/dL (74-106); Potassium 3.5 mmol/L (3.5-5.1); Sodium 135 mmol/L (136-145)
--- NOTE | 2025-02-15 14:28 | W.PC.ACHO ---
Registration Status: Primary Language: Preferred Language: ED Information & Data Chief Complaint Fall/Non TraumaCriteria 02/15/25 09:02 Chief Complaint Fall/Non TraumaCriteria 02/15/25 08:58 Triage Note Pt states she fell on 02/15/25 08:42 tuesday after she got home from having basal cell carcinoma removed from her face at [facility] [place]. No head trauma or LOC. C/O right flank and side pain, no obvious injury noted except skin tear to left arm. (Last Reviewed 07/18/24 @ 13:03 by Nicole Bai DPM) H/O section Most Recent Vital Signs Temperature 36.8 C 02/15/25 08:42 Temperature Source Temporal Artery Scan 02/15/25 08:42 Pulse 75 02/15/25 13:10 Pulse Rhythm Regular 02/15/25 10:47 Pulse Strength Normal 02/15/25 10:47 Pulse 74 02/15/25 13:10 Respiratory Rate 20 02/15/25 13:10 Respiratory Effort Normal 02/15/25 10:47 Respiratory Depth Normal 02/15/25 10:47 Respiratory Pattern Normal 02/15/25 10:47 Blood Pressure 115/74 02/15/25 13:01 Blood Pressure Mean 85 02/15/25 13:01 Blood Pressure Position Supine 02/15/25 10:47 Pulse Oximetry 93 02/15/25 13:10 Oxygen Delivery Method Room Air 02/15/25 10:47 Oxygen Flow Rate 0 02/15/25 10:47 Pain Level 8 02/15/25 08:42 Allergies cefuroxime (From Ceftin) Allergy (Unverified 04/24/22 09:59) Penicillins Allergy (Unverified 04/24/22 09:59) IV IV Catheter Type [] Saline Lock IV Catheter Gauge [] 20 Diet Orders Category Date Time Status Regular/Normal [DIET] Nutrition 02/15/25 Dinner Active Diagnostics 02/15/25 Range/Units 13:42 WBC 17.58 H (4.4-10.8) 10^3/uL RBC 3.79 L (3.93-5.22) 10^6/uL Hgb 10.6 L (11.2-15.7) g/dL Hct 32.6 L (36.0-46.0) % MCV 86 (80-95) fL MCH 28.0 (27.0-33.0) pg MCHC 32.5 (32.0-36.0) % RDW 15.0 H (11.7-14.6) % Plt Count 224 (130-400) 10^3/uL MPV 9.2 (8.0-11.0) fL Immature Gran % 0.4 % Neutrophils % 81.1 % Lymphocytes % 10.7 % Monocytes % 5.7 % Eosinophils % 1.6 % Basophils % 0.5 % Nucleated RBC % 0.0 (0.0-0.3) % Absolute Neutrophils 14.26 H (1.2-6.7) 10^3/uL Absolute Lymphocytes 1.88 (1.2-3.4) 10^3/uL Absolute Monocytes 1.00 H (0.1-0.8) 10^3/uL Absolute Eosinophils 0.28 (0.0-0.7) 10^3/uL Absolute Basophils 0.09 (0.0-0.2) 10^3/uL Sodium 135 L (136-145) mmol/L Potassium 3.5 (3.5-5.1) mmol/L Chloride 102 (98-107) mmol/L Carbon Dioxide 19.3 L (21.0-32.0) mmol/L Anion Gap 13.7 H (3-11) mmol/L BUN 26 H (7-18) mg/dL Creatinine 1.8 H (0.55-1.02) mg/dL Est GFR (CKD-EPI 2020) 28.31 (mL/min/1.73m2) Glucose 101 (74-106) mg/dL Calcium 8.3 L (8.5-10.1) mg/dL Intake and Output - 24 Hour Total 02/15/25 08:39 thru 02/15/25 08:42 Weight 45.359 kg Falls Risk Assessment History of Falls Admit Due to Fall 02/15/25 09:10 Contributing Factors No Factors 02/15/25 09:10 Ambulatory Aids Independent 02/15/25 09:10 Tubes/Lines None 02/15/25 09:10 Gait Evaluation W/no contributing factors 02/15/25 09:10 Cognition No cognitive impairment 02/15/25 09:10 Fall Total Score 35 02/15/25 09:10 Level of Risk Moderate Risk 02/15/25 09:10 Problems (Last Reviewed 07/18/24 @ 13:03 by Nicole Bai DPM) Multiple closed fractures of ribs of right side (Acute) Notes 02/15/25 09:20 Nursing Notes by Gisela Montes De Oca Nursing Note:During triage patient states she does not know what meds she takes, her allergies, or how much she weighs. Spouse at bedside also does not know. Request to Dr. Varma's office (PCP) for history. Initialized on 02/15/25 09:20 - END OF NOTE v v v v v v v v v Sending and/or Receiving Nurses: Please use comment section below to note any information pertinent to the patient hand-off not included above. Information / Comments: Pt is being admitted to floor after fall at home on tuesday02/13/2025. She was having severe 10/10 pain to R side rib cage area. On assessment pt was found to have 4 broken ribs. Also on xray there appreared to be a possible infiltrate forming. Pt's WBC elevated at 17.58. Ls are clear to auscultation, pt is a/o x 4 and able to make needs known, and pt ambulates with 1 assist and walker OOB to chair/bathroom d/t pain with adl's. Pt has a #20 IV to R fore arm that flushes well with good blood return. Nerve block done in ED for pain management. Pt settled in to RM 209. Report received from:
[2025-02-15] MEDS: Normal Saline Flush 10 ML SYR IVP ×2 (14:44→20:16)
[2025-02-15] MEDS: MORPHine 2 MG/ML SYR IVP ×3 (14:44→23:33)
[2025-02-15] MEDS: levoFLOXacin 500 MG, levoFLOXacin 250 MG 750 MG PO (15:50)
--- NOTE | 2025-02-15 17:17 | INITIAL_ITS ---
Date of service: 02/15/25 Time of Service: 17:17 Care Management Initial Assmt Initial Assessment Reason for Hospitalization: Multiple closed fractures of ribs of right side (Ortho) Functional Status/Living Situation Patient Presentation: Sadia was awake and lying in bed when CM met with her. She is polite and easily engages in conversation. Sadia lives in [place] with her . Her daughter lives in [place] and is supportive. Sadia drives and is independent at baseline. 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) Instrumental Activities of Daily Living (ADLs): Independent Medications Medication Management: No Issues/Barriers identified Physical Functioning/Mobility Assistive Device: None Advance Directives Advance Directives: Do you have an Advance Directive: Y 02/21/19 10:46 AD On File at [facility]: N 02/21/19 10:46 Date Asked 02/15/25 02/15/25 08:50 AD Date Reviewed COLST On File at [facility] COLST Date Scanned Code Status Resuscitation Status Full Code Portal Pt does not currently have a portal and education provided: Yes Insurance Coverage/Financial Issues [facility] - [id number] Care Team Visit Care Team Role Provider Type Sinan Varma Primary Care Provider NON-[facility] STAFF PHYSICIAN YENIFER Vivar Emergency Provider PH[employer]EVERAGE ATTENDANT Yogi Engel MD Admit Provider [facility] STAFF PHYSICIAN Attending Provider Discharge Potential Discharge Needs: PT Evaluation, PCP F/U Appt and Other (F/U with Ortho) Anticipated Barriers to Discharge: None Identified Patient/Family Education Needs: Review discharge instructions, discuss Ask Me Three Transportation: Private vehicle Plan: Anticipate Sadia will discharge home via private vehicle with when medically ready for discharge. Sadia will follow up with community providers and discharge plan of care as instructed. New services will be ordered, if indicated. CM will follow. Social Determinants of Health Screening Social Determinants of Health last assessed: 02/16/25 Will the Patient Participate in the Screening?: Yes Do you worry about having a steady place to live?: no Problems where you live: no known problems In the past 12 months, have you had to go without electric, gas, oil or water in your home?: no Have you or anyone in your house had to go without enough food to eat?: no Has lack of transportation kept you from medical appointments or from doing things needed for daily living?: no Has anyone in your life made you feel unsafe or unsupported?: no How hard is it for you to pay for the very basics like food, housing, medical care, and heating? Would you say it is:: Not hard at all Do you want help finding or keeping work or a job?: I do not need or want help If for any reason you need help with day-to-day activities such as bathing, preparing meals, shopping, managing finances, etc., do you get the help you need?: I don?t need any help How often do you feel lonely or isolated from those around you?: Never Do you speak a language other than [place] at home?: No Does the patient want assistance with any of the above?: No Health Related Social Needs Health related social needs: food insecurity (Z59.41) PFSH All Active Problems (Updated 02/16/25 @ 09:39 by Yogi Engel MD) Community acquired pneumonia (Acute) Multiple closed fractures of ribs of right side (Acute) Pain of left heel (Acute) Pain around toenail, left foot (Acute) Peroneal tendinitis, left leg (Acute) Stress fracture of left calcaneus (Acute) Surgical History H/O section Social History Smoking/Tobacco Use Status: Never Smoking risk assessment performed?: Yes Alcohol Intake: current Alcohol Intake frequency: 3 or more drinks per day Alcohol type: beer Drug use: Never Substance use type: does not use Details: states she drinks a few times a week Housing: house Do you feel safe at home: Yes Do you feel safe in your relationship?: Yes
[2025-02-15] MEDS: Heparin 5,000 UNITS/ML VIAL 5000 UNITS SC (20:14)
--- NOTE | 2025-02-16 | DI.RAD_ITS ---
Exam(s) XR CHEST 2V PA LATERAL EXAM: XR CHEST 2V PA LATERAL CLINICAL HISTORY: Pneumonia TECHNIQUE: 2D digital imaging was performed of the chest. Two images were obtained. PA and lateral views were obtained. COMPARISON: CT CT CHEST WO from 02/15/2025 FINDINGS: MEDIASTINUM: Normal. HEART: Normal. PULMONARY VASCULATURE: Normal. LUNGS: There is an infiltrate seen in the right upper lobe. There is also an infiltrate seen in the lateral aspect of the left lower lobe. PLEURAL SPACE: No pleural effusion or pneumothorax. BONE:Within normal limits for the patient's age. There is a right convex scoliosis of the thoracic s pine. OTHER FINDINGS:There is elevation of the left hemidiaphragm. IMPRESSION: Persistent right upper lobe infiltrate. Left basilar infiltrate is also noted. DATA REPOSITORY: RADIATION DOSE DELIVERED:
[2025-02-16 02:01] VITALS: BP 116/63; PULSE 73; RESP 20; TEMP 36.3; O2SAT 97
[2025-02-16] MEDS: MORPHine 2 MG/ML SYR IVP ×3 (02:06→06:17)
[2025-02-16 04:29] VITALS: BP 120/61; PULSE 70; RESP 18; O2SAT 94
[2025-02-16] MEDS: Normal Saline Flush 10 ML SYR IVP ×3 (06:06→19:29)
[2025-02-16] MEDS: Ondansetron 4 MG/2 ML VIAL IVP (06:06)
[2025-02-16 06:37] LABS: HCT 31.3 % (36.0-46.0); HGB 10.4 g/dL (11.2-15.7); MCH 28.3 pg (27.0-33.0); MCHC 33.2 % (32.0-36.0); MCV 85 fL (80-95); Platelet Count 236 10^3/uL (130-400); RBC 3.68 10^6/uL (3.93-5.22); RDW 15.4 % (11.7-14.6); RDW-SD 47.5 fL; WBC 13.61 10^3/uL (4.4-10.8)
[2025-02-16 07:43] VITALS: BP 121/71; PULSE 73; RESP 16; TEMP 36.8; O2SAT 94
[2025-02-16] MEDS: Cyclobenzaprine 10 MG TAB PO (08:20)
[2025-02-16] MEDS: Metoclopramide 10 MG TAB PO (08:20)
[2025-02-16] MEDS: Ketorolac 15 MG/ML VIAL IVP (08:28)
--- NOTE | 2025-02-16 09:38 | W.PM.PROGNOT ---
Date of Service Date of service: 02/16/25 Time of Service: 09:38 Assessment and Plan Assessment and plan (1) Community acquired pneumonia: Status: Acute Assessment and plan: With the leukocytosis, and timing of the rib fractures, I do think that she has a community-acquired pneumonia that was present on admission, secondary to pulmonary splinting from the rib fractures. She does seem to be ventilating a little bit better this morning, but I would like to see her cough strength improved. I will change around some of her analgesics today to see if that helps resolve some of the nausea. I find the improving white blood cell count to be reassuring, and hopefully the antibiotics and pulmonary toileting are helping a bit. We reviewed a few more breathing exercises today, and I will follow-up on another chest x-ray to reassess the infiltrate. Subjective Subjective Interval history since last seen: Sadia was able to sleep a little bit last night, but she developed some nausea and vomiting this morning. Vital signs remain reassuring, and her white blood cell count started to trend downwards. She still splinting quite a bit, but she does say her pain is a little bit better compared to yesterday. She is able to generate about 1 L on the incentive spirometer this morning. Exam Resp Other: There are some faint rhonchi on the right side today, that do improve with cough and deep breathing. GI Other: Her abdomen seems mildly distended, but she does have some bowel sounds, and she is not at all tender. Objective Last Vital Signs Temp 98.2 F 02/16/25 07:43 Pulse 73 02/16/25 07:43 Resp 16 02/16/25 07:43 BP 121/71 02/16/25 07:43 Pulse Ox 94 02/16/25 07:43 Laboratory Results - last 24 hr 02/15/25 02/16/25 13:42 06:24 WBC 17.58 H 13.61 H RBC 3.79 L 3.68 L Hgb 10.6 L 10.4 L Hct 32.6 L 31.3 L MCV 86 85 MCH 28.0 28.3 MCHC 32.5 33.2 RDW 15.0 H 15.4 H Plt Count 224 236 MPV 9.2 9.0 Immature Gran % 0.4 Neutrophils % 81.1 Lymphocytes % 10.7 Monocytes % 5.7 Eosinophils % 1.6 Basophils % 0.5 Nucleated RBC % 0.0 Absolute Neutrophils 14.26 H Absolute Lymphocytes 1.88 Absolute Monocytes 1.00 H Absolute Eosinophils 0.28 Absolute Basophils 0.09 Sodium 135 L Potassium 3.5 Chloride 102 Carbon Dioxide 19.3 L Anion Gap 13.7 H BUN 26 H Creatinine 1.8 H Est GFR (CKD-EPI 2020) 28.31 Glucose 101 Calcium 8.3 L PAWSS Have you Been Recently Intoxicated or Drunk Within the Last 30 days?: No Have you Ever Experienced Previous Episodes of Alcohol Withdrawal?: No Have you ever Experienced Withdrawal Seizures?: No Have you ever Experienced Delirium Tremens(DT)s?: No Have you ever undergone Alcohol Rehabilitation Treatment (i.e, inpt ot outpatient treatment programs)?: No Have you ever Experienced Blackouts?: No Have you ever Combined Alcohol with other Downers within the last 90 days?: No Have you ever Combined Alcohol with any other Substance of Abuse during the last 90 days?: No Positive Blood Alcohol level on Presentation? [PCS.BAL]: No Evidence of Increased Autonomic Activity (i.e. HR>120, tremor, sweating, agitation, nausea)?: No Result: 0 Time Spent with Patient Time Spent with Patient: 25-34 minutes Time was spent: preparing to see the patient(eg.review tests), ordering medications,tests, procedures, indepentently interpreting results and counseling the patient
--- NOTE | 2025-02-16 09:52 | DI.VRAD_ITS ---
PROCEDURE INFORMATION: Exam: XR Chest Exam date and time: 02/16/2025 9:28 AM Age: 79 years old Clinical indication: Other: Pneumonia, HX rib FX TECHNIQUE: Imaging protocol: Radiologic exam of the chest. Views: 2 views. COMPARISON: CT CHEST WO 02/15/2025 10:10 AM FINDINGS: Lungs: Ill-defined right upper lobe opacity. Minimal atelectasis at the left lung base. Pleural spaces: No large pleural effusion seen. Heart/Mediastinum: No cardiomegaly. Diaphragm: Elevated left hemidiaphragm. Bones/joints: No acute abnormality. IMPRESSION: Ill-defined opacity in the right upper lobe, possible pneumonia. Follow-up as clinically warranted. Dictated and Authenticated by: Gale Garcia MD. Orderin Toro Calix MD
[2025-02-16] MEDS: HYDROmorphone 2 MG/ML SYR 0.5 MG IVP ×2 (10:00→15:40)
[2025-02-16] MEDS: Lactated Ringers 500 ML IV (13:45)
[2025-02-16 15:51] VITALS: BP 118/68; PULSE 68; RESP 15; TEMP 37.1; O2SAT 95
[2025-02-16] MEDS: HYDROmorphone 2 MG TAB 1 MG PO (22:21)
[2025-02-16 23:35] VITALS: BP 116/58; PULSE 66; RESP 19; TEMP 37.2; O2SAT 93
[2025-02-17] MEDS: Acetaminophen 325 MG TAB 650 MG PO ×2 (01:33→10:04)
[2025-02-17] MEDS: HYDROmorphone 2 MG TAB 1 MG PO ×2 (05:00→11:17)
[2025-02-17 07:08] LABS: HCT 31.7 % (36.0-46.0); HGB 10.5 g/dL (11.2-15.7); MCH 28.3 pg (27.0-33.0); MCHC 33.1 % (32.0-36.0); MCV 85 fL (80-95); MPV 9.2 fL (8.0-11.0); Platelet Count 244 10^3/uL (130-400); RBC 3.71 10^6/uL (3.93-5.22); RDW 15.1 % (11.7-14.6); RDW-SD 47.6 fL; WBC 9.75 10^3/uL (4.4-10.8)
[2025-02-17 07:38] VITALS: BP 105/64; PULSE 65; RESP 16; TEMP 37.5; O2SAT 96
[2025-02-17] MEDS: amLODIPine 5 MG TAB PO (07:39)
[2025-02-17] MEDS: Normal Saline Flush 10 ML SYR IVP (07:40)
[2025-02-17] MEDS: levoFLOXacin 500 MG TAB PO (08:50)
--- NOTE | 2025-02-17 09:01 | W.PM.PROGNOT ---
Date of Service Date of service: 02/17/25 Time of Service: 09:01 Assessment and Plan Assessment and plan (1) Community acquired pneumonia: Status: Acute Assessment and plan: Needs he is able to generate closer to 1500 mL on the spirometer today, and her leukocytosis is normalized. She seems to be responding favorably to treatment of pneumonia with levofloxacin. At this point, I think she safe to be discharged home. I will continue the outpatient antibiotics with outpatient breathing exercises and pulmonary toilet Subjective Subjective Interval history since last seen: Sadia is feeling much better through today. She was able to get a good night sleep. She is tolerated the switch to enteral Dilaudid with good pain control. Her cough strength is improved. Exam Resp Other: Lungs still have a little bit of bronchial breath sounds, but overall seem better than yesterday. Objective Last Vital Signs Temp 99.5 F 02/17/25 07:38 Pulse 65 02/17/25 07:38 Resp 16 02/17/25 07:38 BP 105/64 02/17/25 07:38 Pulse Ox 96 02/17/25 07:38 Laboratory Results - last 24 hr 02/17/25 06:27 WBC 9.75 RBC 3.71 L Hgb 10.5 L Hct 31.7 L MCV 85 MCH 28.3 MCHC 33.1 RDW 15.1 H Plt Count 244 MPV 9.2 PAWSS Have you Been Recently Intoxicated or Drunk Within the Last 30 days?: No Have you Ever Experienced Previous Episodes of Alcohol Withdrawal?: No Have you ever Experienced Withdrawal Seizures?: No Have you ever Experienced Delirium Tremens(DT)s?: No Have you ever undergone Alcohol Rehabilitation Treatment (i.e, inpt ot outpatient treatment programs)?: No Have you ever Experienced Blackouts?: No Have you ever Combined Alcohol with other Downers within the last 90 days?: No Have you ever Combined Alcohol with any other Substance of Abuse during the last 90 days?: No Positive Blood Alcohol level on Presentation? [PCS.BAL]: No Evidence of Increased Autonomic Activity (i.e. HR>120, tremor, sweating, agitation, nausea)?: No Result: 0 Time Spent with Patient Time Spent with Patient: 25-34 minutes Time was spent: preparing to see the patient(eg.review tests), indepentently interpreting results and counseling the patient
--- NOTE | 2025-02-17 09:03 | DSE_ITS ---
Date of service: 02/17/25 Time of Service: 09:04 DS: Diagnosis Discharge Diagnosis (1) Community acquired pneumonia: Status: Acute Asessment and Plan: Discharge home with outpatient antibiotics Discharge Plan Disposition Patient Disposition: Home Condition: Improving Discharge Details Reason For Visit: rib fractures Admit Date/Time: 02/15/25 13:13 Admit Provider: Yogi Engel Attending Provider: Yogi Engel Primary Care Provider: Sinan Varma Hospital Course Hospital Course: Sadia is a 79-year-old woman who had a standing level fall at home. She sustained multiple right-sided rib fractures. She presented to the hospital in a delayed fashion with increasing pain and fatigue. She had a leukocytosis, and underwent a CT scan that confirmed the presence of multiple right-sided rib fractures, as well as pulmonary infiltrates consistent with community-acquired pneumonia. She was started on multimodal analgesia to help with the pain associated from the fractures. She was started on empiric treatment for community-acquired pneumonia. Her hospital course was complicated by some transient nausea which resolved. Pulmonary toileting exercises were explained to, and reviewed with the patient. Her cough strength, and spirometry improved, she was discharged home with outpatient follow-up. Home Meds and New Rx's Prescriptions: New levofloxacin 500 mg Tablet 500 mg PO Q48H Qty: 4 0RF Rx Instructions: Take 1 tablet by mouth every other day starting on Tuesday. Complete this prescription hydromorphone 2 mg Tablet 1 mg PO Q6H PRN PRNQty: 5 0RF Rx Instructions: Take half of a tablet by mouth up to every 6 hours if needed for severe pain Continued potassium chloride 20 mEq tablet extended release 20 meq PO DAILY Prolia 60 mg/mL syringe 60 mg subcut [id number] amlodipine 10 mg tablet 5 mg PO DAILY Patient Comments: TAKE ONE TABLET BY MOUTH EVERY DAY Multi For Her 18 mg iron-600 mcg-40 mcg Capsule 1 tab-cap PO DAILY Discharge Instructions Instructions: Rib fractures in adults, Community-acquired pneumonia in adults Additional Instructions: Sadia, it was very nice to meet you, and I hope you make an uneventful transition as you continue with your recovery at home. With regards to the pneumonia, you are being treated with an antibiotic called levofloxacin, or Levaquin. I sent a prescription to [facility], and I would like you to take 1 tablet of this antibiotic by mouth every other day. You will start doing that on Tuesday, since you were provided a dose today. There are 4 total tablets in this prescription, and you should take your last pill next Tuesday. I usually encouraged my patients on antibiotics to consume a diet that is well-balanced, and rich with probiotics. Live active cultures in things like yogurts and sauerkraut are often times very useful. Vfwb-lea-kostmow lactobacillus is another strategy that some patients prefer. The other part of treating the pneumonia, is ensuring that you have good inflation of your lungs, and clearance of your sputum. Using the Little spirometry machine at home will help you to inflate your lungs appropriately, and doing the cough exercises described on the sheet of paper will help to mobilize and clear secretions. I recommend that you set an alarm on your phone to remind you to do this. The spirometry should be done at least once per hour. If you are up and about and doing some basic chores or errands, you do not have to interrupt that to do the spirometry. The huffing exercises to help clear your lungs should be done at least once in the morning after you wake up, once in the evening before you go to bed, and intermittently throughout the day if you can remember. I would encourage you to take your temperature once a day over the next few days, or at any point during the day if you feel febrile. If your temperature exceeds 100 degrees, please notify your primary care doctor, or call the hospital and have them page the surgeon on-call. With regards to the rib fractures, the only real specific treatment is targeted at pain. I usually recommend that patients alternate Tylenol and ibuprofen [id number] for the first few days. Taking 1 Tylenol, followed by an ibuprofen 6 hours later, then a Tylenol, and ibuprofen, etc. If you start to feel better over the next 48 to 72 hours, you can transition to using those medications as needed. As we discussed, I also provided a prescription for some of the stronger pain medication if you need that to help with breathing and coughing. As we discussed, this medication can cause sleepiness, fatigue, imbalance, etc., so please be very careful with its use. That medication can also be a little bit constipating, so a high-fiber diet, or zque-wvq-hzlxjmg laxatives are also a good supplement if needed. You mentioned that you have an appointment scheduled with your primary care provider. Assuming that is within the next 2 weeks, that is a fine follow-up. Otherwise, I would like you to call my office at [phone] to set up a fol low-up visit within the next 2-week period. If you need anything, or have any questions at all, please do not hesitate to call. Referrals: Sinan Varma [Primary Care Provider] - Activity:: Activity as Tolerated Equipment/Supplies:: Incentive spirometer Diet:: As Tolerated DS: Summary Time Spent with Patient providing and/or coordinating discharge services: Less than 30 minutes Status at Discharge Functional status at discharge: independent ambulation Overall status at discharge: patient is progressing back to baseline Mental Status: mental status grossly normal Speech and Movement: speech and movement normal Mood: congruent mood Affect: normal affect Quality:SDOH Health Related Social Needs: Health related social needs food insecurity (Z59.41) Exam Psych Mental Status: mental status grossly normal Speech and Movement: speech and movement normal Mood: congruent mood Affect: normal affect DS: Data Vitals/I&O Vitals and I&O: Vital Signs Temperature 99.5 F 02/17/25 07:38 Temperature Source Temporal Artery Scan 02/17/25 07:38 Pulse 65 02/17/25 07:38 Pulse Rhythm Regular 02/15/25 14:33 Pulse Strength Normal 02/15/25 10:47 Pulse 74 02/15/25 13:10 Respiratory Rate 16 02/17/25 07:38 Respiratory Effort Normal 02/15/25 14:33 Respiratory Depth Normal 02/15/25 14:33 Respiratory Pattern Normal 02/15/25 14:33 Blood Pressure 105/64 02/17/25 07:38 Blood Pressure Mean 85 02/15/25 13:01 Blood Pressure Position Supine 02/15/25 10:47 Pulse Oximetry 96 02/17/25 07:38 Oxygen Delivery Method Room Air 02/17/25 07:38 Oxygen Flow Rate 0 02/17/25 07:38 Pain Level 0 02/17/25 07:38 Comment pT reports no pain at rest 02/17/25 07:38 Intake & Output 02/16/25 02/16/25 02/17/25 11:59 23:59 11:59 Intake Total 10 / 750 740 / 750 360 / 360 Output Total 200 / 600 400 / 600 250 / 250 Balance -190 / 150 340 / 150 110 / 110 Intake: IV 10 / 510 500 / 510 Oral 240 / 240 360 / 360 Output: Urine 200 / 600 400 / 600 250 / 250 Other: Urine Color Yellow Yellow Yellow Urine Appearance Clear Clear Cloudy Urine Odor Normal Normal Normal Comment unmeasurable, small amount. unmeasurable, small amount into commode. Data Completed and Pending Labs on day of discharge: Labs from last 24 hours 02/17/25 06:27 WBC 9.75 RBC 3.71 L Hgb 10.5 L Hct 31.7 L MCV 85 MCH 28.3 MCHC 33.1 RDW 15.1 H Plt Count 244 MPV 9.2 PFSH All Active Problems (Updated 02/16/25 @ 09:39 by Yogi Engel MD) Community acquired pneumonia (Acute) Multiple closed fractures of ribs of right side (Acute) Pain of left heel (Acute) Pain around toenail, left foot (Acute) Peroneal tendinitis, left leg (Acute) Stress fracture of left calcaneus (Acute) Surgical History H/O section Social History Smoking/Tobacco Use Status: Never Smoking risk assessment performed?: Yes Alcohol Intake: current Alcohol Intake frequency: 3 or more drinks per day Alcohol type: beer Drug use: Never Substance use type: does not use Details: states she drinks a few times a week Housing: house Do you feel safe at home: Yes Do you feel safe in your relationship?: Yes Time Spent with Patient Time Spent with Patient: <45 minutes Time was spent: preparing to see the patient(eg.review tests), ordering medications,tests, procedures, indepentently interpreting results and counseling the patient
--- NOTE | 2025-02-17 11:00 | PDOC.CMDIS ---
Date of service: 02/17/25 Time of Service: 11:00 LACE Index Scoring Tool Questions: Length of Stay (in days): 2 Was the patient admitted via the E.D.?: Yes E.D. Visits: 1 Answers: Total Score: 6 Risk of Readmission: Low Risk Care Management Discharge Plan Reason for Hospitalization: Rib fractures in adults, Community-acquired pneumonia Discharge Plan: Discharge home via private vehicle with family. Follow up with PCP and discharge plan of care as instructed. Pt will call PCP office on Tuesday to schedule follow up. No new services are ordered at the the time of discharge. Patient/Family Education Needs: Review discharge instructions, discuss Ask Me Three SDOH Health Related Social Needs: Health related social needs food insecurity (Z59.41)
== END 2025-02-17 11:20 | disposition home or self-care (01) ==
LOC: ER 13:34 → MS 02-16 19:49
PROVIDERS: Admitting Provider Surgery; Emergency Provider Physician Assistant; PCP Physician Assistant; Visit Provider Surgery
DX: S22.41XA Multiple fractures of ribs, right side, initial encounter for closed fracture (principal); J18.9 Pneumonia, unspecified organism; G89.11 Acute pain due to trauma; R07.89 Other chest pain; S61.512A Laceration without foreign body of left wrist, initial encounter; I77.810 Thoracic aortic ectasia; N20.0 Calculus of kidney; I10 Essential (primary) hypertension; W18.39XA Other fall on same level, initial encounter; D72.829 Elevated white blood cell count, unspecified; Z85.828 Personal history of other malignant neoplasm of skin; Z79.899 Other long term (current) drug therapy; G89.18 Other acute postprocedural pain
CPT/HCPCS: 36415; 64450; 71250; 80048; 85027; 96361; 96374; 96375; 96376; 99222; 99232; 99238; 99285; 71046; 72131; 85025; G0378; J0665; J0666; J1171; J1644; J1885; J2270; J2405